=== PATIENT | female | born 1955 | race Caucasian/White ===

== ENCOUNTER 2020-01-14 11:21 | Emergency (ER) | payer MEDICARE, OTHER, SELFPAY ==
[2020-01-14] VITALS (8 sets, daily range): BP systolic 90–119; BP diastolic 45–67; PULSE 69–107; RESP 16–18; TEMP 36.6; O2SAT 89–99; BMI 30.3
--- NOTE | 2020-01-14 11:44 | ECG_ITS ---
Test Reason : SOB Blood Pressure : / mmHG Vent. Rate : 097 BPM Atrial Rate : 097 BPM P-R Int : 186 ms QRS Dur : 088 ms QT Int : 352 ms P-R-T Axes : 063 064 048 degrees QTc Int : 447 ms Sinus rhythm with occasional Premature atrial complexes RSR' or QR pattern in V1 suggests right ventricular conduction delay Abnormal ECG When compared with ECG of 30-MAY-2016 11:37, Premature atrial complexes are new Referred By: Jessica Sevilla Electronically Signed By:FRANCY ELIZONDO MD
--- NOTE | 2020-01-14 11:44 | ED.WEAKNESS ---
HPI - Weakness General Chief complaint: Weakness Stated complaint: NAUSEA X'S 1 WEEK Time Seen by Provider: 01/14/20 11:24 Source: patient and EMS Mode of arrival: EMS Limitations: no limitations History of Present Illness HPI Narrative: 64-year-old female with a possible history of tobacco use, GERD, asthma, COPD, diabetes, fibromyalgia, hypertension, hyper lipidemia, hypothyroidism, KAYLAN, polymyalgia rheumatica on chronic steroids, s/p cal here with complaints of nausea for weeks. She tells me she has been seen by her primary care doctor and was told she was going to be referred to GI but this did not happen. She is unhappy with her primary care doctor and seeking secondary pinning. She tells me that she has had very little p.o. intake for the last few days. This morning she was able to tolerate have a single specimen. She denies abdominal pain, vomiting, diarrhea. She she has been feeling very weak for the last few days. EMS gave her 4 mg of IV Zofran 100 mL of normal saline. MD Complaint: generalized weakness Onset (ago): day(s) Duration: constant Location: generalized Migration: none Severity: mild Relieving factors: none Exacerbating factors: none Associated symptoms: loss of appetite and other (nausea) Related Data Previous Rx's Medication Instructions Recorded pantoprazole 40 mg tablet,delayed 40 mg PO DAILY 90 Days #90 tab 12/11/19 release buspirone 15 mg tablet 15 mg PO BID 90 Days #180 tab 12/29/19 methenamine hippurate 1 gram tablet 1 g PO BID #60 tab 12/29/19 triamterene 37.5 1 cap PO DAILY 90 Days #90 cap 12/29/19 mg-hydrochlorothiazide 25 mg capsule albuterol sulfate 90 mcg/actuation 2 puff INHALATION QID #8.5 g 01/01/20 aerosol inhaler clonidine HCl 0.1 mg tablet 0.1 mg PO TID PRN #90 tab 01/01/20 gabapentin 300 mg capsule 300 mg PO TID #270 cap 01/01/20 oxycodone-acetaminophen 5 mg-325 1 tab PO Q8H PRN 28 Days #84 tab 01/09/20 mg tablet promethazine 25 mg tablet 25 mg PO TID PRN 10 Days #30 tab 01/09/20 Allergies Allergy/AdvReac Type Severity Reaction Status Date / Time codeine [Codeine] AdvReac Unknown VOMITING Verified 01/14/20 14:40 absorbable sutures Allergy Unknown Unknown Uncoded 01/14/20 14:40 Cat/Feline Product Allergy Unknown SWELLING,INFECTION Uncoded 01/14/20 14:40 Derivatives AT SITE WITH CAT GUT SUTURES codeine Allergy Unknown vomiting Uncoded 01/14/20 14:40 Codeine Phosphate Allergy Unknown Unknown Uncoded 01/14/20 14:40 dissolving stitches Allergy Unknown Unknown Uncoded 01/14/20 14:40 DISSOLVING SUTURES Allergy Unknown INFECTIONS Uncoded 01/14/20 14:40 Review of Systems Review of Systems: Yes all other systems are reviewed and are negative Constitutional: Constitutional: Reports no additional constitutional complaints, Denies body ache(s), Denies chills, Denies fever(s), Denies headache(s) and Reports weakness Eyes: Eyes: Reports no additional eye complaints and Denies change in vision ENT: Reports system reviewed and no additional complaints, except as documented, Denies dizziness, Denies headache(s), Denies nasal congestion, Denies nasal discharge and Denies neck pain Cardiovascular: Cardiovascular: Reports no additional cardiovascular complaints, Denies chest pain, Denies leg edema and Denies dyspnea Respiratory: Respiratory: Reports no additional respiratory complaints, Denies cough and Denies dyspnea Gastrointestinal: Gastrointestinal: Reports no additional gastrointestinal complaints, Denies abdominal pain, Denies diarrhea, Reports nausea and Denies vomiting Genitourinary: Genitourinary: Reports no additional female genitourinary complaints and Denies urinary incontinence Musculoskeletal: Musculoskeletal: Reports no additional musculoskeletal complaints, Denies back pain, Denies arthralgias, Denies joint swelling, Denies neck pain, Denies numbness and Denies tingling Integumentary/Breasts: Skin/Breast: Reports system reviewed and no additional complaints, except as docu and Denies rash Neurologic: Reports system reviewed and no additional complaints, except as documented, Denies Abnormal speech present, Denies dizziness, Denies headache(s), Denies numbness, Denies tingling and Reports weakness PMFSH Past Medical History Attestation statement: The following information was validated with the patient. Source: obtained from family and nursing notes reviewed Medical History Asthma COPD (chronic obstructive pulmonary disease) Diabetes Fibromyalgia GERD (gastroesophageal reflux disease) Hypertension Hypertriglyceridemia Hypothyroid Intractable nausea and vomiting Iron deficiency anemia Lipoprotein deficiencies Lumbar degenerative disc disease Polymyalgia rheumatica Surgical History History of thyroidectomy Hx of cholecystectomy Social History Social History Alcohol intake: unknown Smoking Status: Current every day smoker Use of substances other than those prescribed or required for medical reasons: Unknown Advance Directives: No Advance Directives Information Provided: Yes Physical Exam Vital Signs: Vital Signs: Last Vital Signs Temp 97.9 F 01/14/20 16:00 Pulse 73 01/14/20 16:00 Resp 16 01/14/20 16:00 BP 98/62 01/14/20 16:00 Pulse Ox 96 01/14/20 16:00 Body Mass Index 30.3 Const: General: cooperative, healthy appearing, comfortable and no acute distress Orientation/consciousness: patient oriented x3 Limitations: no limitations HENMT: Head: Yes normal to inspection Ears: hearing grossly normal bilaterally General nose exam: Normal external nose present Face and sinus: Yes normal facial exam Mouth: Normal oral and palatal mucosa present Throat: Yes posterior oropharynx normal Eyes: General: appearance normal, both eyes and all related structures Pupils: Equal, round and reactive pupils present Neck: Neck: Yes normal visual inspection Chest: Chest palpation & inspection: normal inspection of the chest Resp: Effort & Inspection: normal respiratory effort Auscultation: clear to auscultation bilaterally Cardio: Rate: regular rate Rhythm: regular rhythm Peripheral pulses: Peripheral pulses 2+ throughout GI: Inspection: Yes normal to inspection Palpation (GI): Soft to palpation, Tenderness to palpation present (GI) in the epigastrum, in the LUQ and in the RUQ; with no rebound tenderness and no guarding Auscultation: normal bowel sounds Back/Spine/Pelvis: Thoracic/Lumbar Spine: thoracic and lumbar spine normal to inspection Skin: General skin exam: no rashes or lesions noted Neuro: General: patient oriented x3, no focal motor deficits and normal sensation to monofilament Cranial nerves: Yes Equal, round and reactive pupils present Cognition (Neuro): normal cognition Speech: No Abnormal speech present Gait exam (Neuro): Normal gait present Motor exam (neuro): 5/5 motor strength present throughout Extrem: General: Yes normal to inspection Course Course Course Narrative: 64-year-old female here with nausea with decreased p.o. intake and now weakness. Exam is neurologically intact. The patient does have some mild upper abdominal pain with no rebound or guarding. Will need labs, UA, EKG, chest x-ray, orthostatics. Patient requesting COVID testing. This was sent. 1345-orthostatics positive. Patient has 2 L of normal saline ordered. Magnesium was low. This was replaced. Her calcium level is high. May be secondary to dehydration however have to rule out underlying malignancy. CT chest and abdomen ordered. 1550-CT chest/abdomen pending. Two blood pressures mildly low likely secondary to dehydration and not infection or severe sepsis. Patient had a solitary RA saturation 89% and has a h/o COPD, r/t chronic lung disease. It was associated with some wheezing and the patient received a duoneb with immediate improving in pulse oximeter. Not from sepsis or infectious process. 1640-UA unremarkable. Leukocytosis secondary to chronic steroid use and not from infection or severe sepsis. Patient would like to be discharged home. She ate a turkey sandwich and a evelia radha with no vomiting. Plan for repeat BMP and magnesium. If improved discharge home with PCP follow-up. I discussed with the patient I would like to admit her and admission was offered for continued IV hydration. Patient however has a small dog at home and would like to be discharged home after repeat labs. 1700-Sign out to Zackary MANZANARES pending repeat labs. MDM - Weakness MDM Narrative Medical decision making narrative: Electrolyte abnormality, anemia, underlying infectious process (UTI, pneumonia, COVID infection), ACS Medical Records Attestation: I reviewed the patient's medical records. Lab Data Attestation: I reviewed the patient's lab results. Result diagrams: 01/14/20 12:25 01/14/20 12:25 Labs: Lab Results 01/14/20 01/14/20 01/14/20 Range/Units 12:07 12:25 12:25 WBC 16.4 H (4.8-10.8) X10*3/uL RBC 4.51 (4.20-5.50) X10*6/uL Hgb 14.1 (12.0-16.0) g/dl Hct 42.6 (37-47) % MCV 94.5 (80-98) fL MCH 31.3 (27.0-33.0) pg MCHC 33.1 (31.0-35.0) g/dl RDW 12.1 (11.0-16.0) % Plt Count 310 (160-400) X10*3/uL MPV 9.5 (9.4-12.3) fL Immature Gran % (Auto) 0.4 (0.0-0.4) % Neut % (Auto) 73.8 H (45-73) % Lymph % (Auto) 16.0 L (20-40) % Robeson % (Auto) 7.6 (2-11) % Eos % (Auto) 1.7 (0-4) % Baso % (Auto) 0.5 (0-2) % Lymph # (Auto) 2.6 (1.2-4.9) X10*3/uL Robeson # (Auto) 1.3 H (0.1-1.2) X10*3/uL Eos # (Auto) 0.3 (0.0-0.4) X10*3/uL Baso # (Auto) 0.1 (0.0-0.2) X10*3/uL Abs Immat Gran (auto) 0.06 H (0.00-0.03) X10*3/uL Absolute Neuts (auto) 12.1 H (2.0-8.3) X10*3/uL Absolute Nucleated RBC 0.000 (0.0-0.012) X10*3/uL Nucleated RBC % (auto) 0.0 (0.0-0.2) /100WBC PT (10.8-13.0) SEC INR (0.9-1.1) Sodium 139 (135-145) mmol/L Potassium 3.6 (3.3-5.1) mmol/l Chloride 93 L (96-108) mmol/L Carbon Dioxide 37 H (22-29) mmol/L Anion Gap 13 (12-20) BUN 14 (9-16) mg/dL Creatinine 1.35 (0.5-1.4) mg/dL Estim Creat Clear Calc 45.6 Estimated GFR 39 Random Glucose 127 H (60-115) mg/dL Calcium 13.9 H* (8.4-10.2) mg/dL Magnesium 1.4 L* (1.6-2.6) mg/dL Total Bilirubin 0.3 (0.0-1.0) mg/dL Direct Bilirubin < 0.2 (0.0-0.5) mg/dL AST 13 (5-31) U/L ALT 10 (0-31) U/L Alkaline Phosphatase 59 (39-117) U/L Troponin I High Sens (<3.5-17.0) ng/L Total Protein 5.9 L (6.5-8.0) g/dL Albumin 4.0 (3.5-5.0) g/dL Urine Color Urine Appearance Urine pH (5.0-8.0) Ur Specific Hague (1.005-1.025) Urine Protein (NEG-TRACE) MG/DL Urine Glucose (UA) (NEG) MG/DL Urine Ketones (NEG) MG/DL Urine Blood (NEG) Urine Nitrite (NEG) Ur Leukocyte Esterase (NEG) Urine RBC (0) /HPF Urine WBC (0-4) /HPF Ur Squamous Epith Cells /LPF Amorphous Sediment /LPF Urine Bacteria /LPF Coronavirus (PCR) NEGATIVE (Negative) 01/14/20 01/14/20 01/14/20 Range/Units 12:25 12:25 16:05 WBC (4.8-10.8) X10*3/uL RBC (4.20-5.50) X10*6/uL Hgb (12.0-16.0) g/dl Hct (37-47) % MCV (80-98) fL MCH (27.0-33.0) pg MCHC (31.0-35.0) g/dl RDW (11.0-16.0) % Plt Count (160-400) X10*3/uL MPV (9.4-12.3) fL Immature Gran % (Auto) (0.0-0.4) % Neut % (Auto) (45-73) % Lymph % (Auto) (20-40) % Robeson % (Auto) (2-11) % Eos % (Auto) (0-4) % Baso % (Auto) (0-2) % Lymph # (Auto) (1.2-4.9) X10*3/uL Robeson # (Auto) (0.1-1.2) X10*3/uL Eos # (Auto) (0.0-0.4) X10*3/uL Baso # (Auto) (0.0-0.2) X10*3/uL Abs Immat Gran (auto) (0.00-0.03) X10*3/uL Absolute Neuts (auto) (2.0-8.3) X10*3/uL Absolute Nucleated RBC (0.0-0.012) X10*3/uL Nucleated RBC % (auto) (0.0-0.2) /100WBC PT 12.1 (10.8-13.0) SEC INR 1.0 (0.9-1.1) Sodium (135-145) mmol/L Potassium (3.3-5.1) mmol/l Chloride (96-108) mmol/L Carbon Dioxide (22-29) mmol/L Anion Gap (12-20) BUN (9-16) mg/dL Creatinine (0.5-1.4) mg/dL Estim Creat Clear Calc Estimated GFR Random Glucose (60-115) mg/dL Calcium (8.4-10.2) mg/dL Magnesium (1.6-2.6) mg/dL Total Bilirubin (0.0-1.0) mg/dL Direct Bilirubin (0.0-0.5) mg/dL AST (5-31) U/L ALT (0-31) U/L Alkaline Phosphatase (39-117) U/L Troponin I High Sens 11.1 (<3.5-17.0) ng/L Total Protein (6.5-8.0) g/dL Albumin (3.5-5.0) g/dL Urine Color YELLOW Urine Appearance HAZY Urine pH 6.5 (5.0-8.0) Ur Specific Hague 1.015 (1.005-1.025) Urine Protein TRACE (NEG-TRACE) MG/DL Urine Glucose (UA) NEG (NEG) MG/DL Urine Ketones NEG (NEG) MG/DL Urine Blood NEG (NEG) Urine Nitrite NEG (NEG) Ur Leukocyte Esterase 1+ H (NEG) Urine RBC 0 (0) /HPF Urine WBC 5-9 H (0-4) /HPF Ur Squamous Epith Cells NONE /LPF Amorphous Sediment 1+ /LPF Urine Bacteria 3+ /LPF Coronavirus (PCR) (Negative) Imaging Data Chest x-ray: Attestation: I personally reviewed and interpreted this imaging study as follows: Radiologist's impression: [id number] [place] [id number] XRay Report Signed Patient: Paula Ortiz MMR#: [id number] : 5Acct:[id number] Age/Sex: 64 / FADM Date: 01/14/20 Loc: HO.ED Attending Dr: Ordering Physician: AN STANTON NP Date of Service: 01/14/20 Procedure(s): XR chest 2V Accession Number(s): [id number] cc: AN STANTON NP~ EXAMINATION: XR CHEST CLINICAL INFORMATION: Weakness. COMPARISON: Chest done on 12/18/2016. TECHNIQUE: 2 views of the chest were obtained. FINDINGS: Mild diffuse osteopenia and mild multilevel degenerative spondylosis related changes are noted, unchanged. No significant abnormality is noted involving the heart, lungs, mediastinum, or soft tissues. XR/XR chest 2V IMPRESSION: No acute cardiopulmonary disease, unchanged since 12/18/2016. CT scan - head: Attestation: I personally reviewed and interpreted this imaging study as follows: Radiologist's impression: EXAMINATION: CT HEAD WITHOUT CONTRAST CLINICAL INFORMATION: Weakness. COMPARISON: None TECHNIQUE: Contiguous axial imaging was performed from the skull base to vertex without intravenous administration of contrast. This CT examination was performed using dose optimization techniques as appropriate, variously including the following: *Automated exposure control *Adjustment of mA and/or kV according to patient size (this includes techniques or standardized protocols for targeted exams where dose is matched to indication/reason for exam; i.e. extremities or head) *Use of iterative reconstruction technique DLP: 842.4 mGy-cm FINDINGS: There is no evidence of acute intracranial hemorrhage or territorial infarction. No abnormal mass effect or midline shift is seen. Barron to white matter differentiation is well preserved. No extra-axial fluid collections are identified. The ventricles are normal in size. There is no abnormal attenuation within the brain parenchyma. The osseous structures and soft tissues are normal. The mastoid air cells and visualized portions of the paranasal sinuses are well aerated. CT/CT head/brain wo con IMPRESSION: No acute intracranial pathology. Ct chest/abdomen: Attestation: I personally reviewed and interpreted this imaging study as follows: Radiologist's impression: EXAMINATION: CT CHEST, ABDOMEN AND PELVIS WITHOUT CONTRAST CLINICAL INFORMATION: Nausea with elevated calcium COMPARISON: No pertinent prior studies are available for comparison. TECHNIQUE: Multidetector volumetric imaging was performed from the thoracic inlet through the pubic symphysis without contrast. Sagittal and coronal reformatted images were obtained on the technologist workstation. DLP: 1090 mGy-cm. FINDINGS: CHEST: Lungs: Central airways are patent. There are some mild central bronchial wall thickening present. No bronchiectasis is seen. No significant emphysematous changes seen. There are some scattered sub-4 mm densities present. There are regions of discoid atelectasis or scarring seen within the right middle lobe and right lower lobe. A few scattered calcified granulomas are seen. Within the right middle lobe on image 326 of 590 there is a 4 mm noncalcified nodule present. There is a 5 mm noncalcified nodular density seen within the right lower lobe on image 356 of 590. There is a 5 mm density seen within the right lower lobe on image 312 of 590. There is a 6 mm noncalcified nodule seen within the left upper lobe on image 176 of 590. There is a 4 mm nodular density seen within the left lower lobe on image 301 of 590. There is a 4 mm noncalcified nodule seen within the left lower lobe on image 241 of 590. Mediastinum: Question status post thyroidectomy. There is a minimal amount of pericardial fluid. Heart normal size. Coronary artery calcification present. There is mild nonobstructive calcified plaque seen in the aortic arch. No thoracic aortic aneurysm. There is a 1.1 cm right hilar lymph node. No mediastinal lymphadenopathy. Pleura: There is no significant effusion. No pleural mass or thickening. No pneumothorax. Chest Wall/Axilla: No axillary lymphadenopathy. Status post left lumpectomy. ABDOMEN/PELVIS: Liver, Gallbladder, Biliary Tree: The liver is normal in size, shape, and attenuation. No focal hepatic lesion or biliary ductal dilatation is present. Status post cholecystectomy Pancreas: There is a pancreatic body calcification present which is likely vascular within the splenic artery. No definite suspicious mass or peripancreatic inflammatory change. Spleen: Unremarkable. Adrenal Glands: There is a 1.5 x 1.4 cm meter adrenal gland lipid rich adenoma Kidneys and Ureters: The kidneys are normal in size, shape, and attenuation. No hydronephrosis or hydroureter or obstructing calculi seen. No significant perinephric stranding. There is a 1.4 cm hyperdense cyst upper pole left kidney. There is a 6 mm hyperdense cyst upper pole of the right kidney. There is a 2 mm nonobstructing upper pole left renal calculus. Bladder: Unremarkable. Gastrointestinal Tract: There is a duodenal diverticulum off the second portion of the duodenum. No dilated loops of large or small bowel are evident. No pericolonic inflammatory change. No evidence of acute appendicitis. Abdominal Wall: No hernia is demonstrated. Lymph Nodes: No lymphadenopathy appreciated. Vascular: No abdominal aortic aneurysm. Mild calcified aortoiliac plaque. Pelvic Viscera: No abnormal pelvic mass or free fluid appreciated. Osseous Structures: No destructive bony lesions identified. There is calcification of the anterior longitudinal ligament throughout the thoracic and lumbar spine. There is multilevel degenerative disc disease present. There is scoliosis thoracic spine convex right. There is mild scoliosis of the lumbar spine convex left. There are some old healed right rib fractures. CT/CT abdomen pelvis wo con IMPRESSION: Status post previous thyroid surgery. Old granulomatous disease within the chest. Multiple lung densities as described. According to the UPDATED 2017 Fleischner Society recommendations, the advised follow-up imaging for multiple solid nodules, the largest measuring 6 mm or greater, is: LOW RISK PATIENT: CT at 3-6 months, then consider CT at 18-24 months. HIGH RISK PATIENT: CT at 3-6 months, then at 18-24 months. 1.1 cm right hilar lymph node. 1.5 cm lipid rich left adrenal gland adenoma. ECG Data Attestation: I personally reviewed and interpreted this ECG as follows: ECG interpretation date: 01/14/20 Interpretation: Normal sinus rhythm with sinus arrhythmia, normal PA, normal QRS, normal QT Discharge Plan Discharge Clinical Impression: Hypomagnesemia, Hypercalcemia, Acute dehydration Patient Disposition: Home, Self-Care Instructions: Dehydration (ED), Hypercalcemia (ED) Additional Instructions: Stay well hydrated. Drink plenty of fluids Follow-up with your PCP this week. You were offered admission but you declined this. Prescriptions: No Action pantoprazole 40 mg tablet,delayed release (DR/EC) 40 mg PO DAILY 90 Days Qty: 90 RF: 1 buspirone 15 mg tablet 15 mg PO BID 90 Days Qty: 180 RF: 12 triamterene-hydrochlorothiazid 37.5-25 mg capsule 1 cap PO DAILY 90 Days Qty: 90 RF: 12 methenamine hippurate 1 gram tablet 1 g PO BID Qty: 60 RF: 1 clonidine HCl 0.1 mg tablet 0.1 mg PO TID PRN (Reason: anxiety) Qty: 90 RF: 3 albuterol sulfate 90 mcg/actuation HFA aerosol inhaler 2 puff inhalation QID Qty: 8.5 RF: 3 gabapentin 300 mg capsule 300 mg PO TID Qty: 270 RF: 0 promethazine 25 mg tablet 25 mg PO TID PRN (Reason: nausea and vomiting) 10 Days Qty: 30 RF: 0 oxycodone-acetaminophen [Percocet] 5-325 mg tablet 1 tab PO Q8H PRN (Reason: pain) 28 Days Qty: 84 RF: 0 Referrals: Mikey Villavicencio MD [Primary Care Provider] - 2 days
[2020-01-14] MEDS: 0.9 % Sodium Chloride 1,000 ML 999 ML IV ×2 (11:57→13:16)
[2020-01-14 12:30] LABS: Basophils Absolute Auto 0.1 X10*3/uL (0.0-0.2); Basophils Percent Auto 0.5 % (0-2); Eosinophils Absolute Auto 0.3 X10*3/uL (0.0-0.4); Eosinophils Percent Auto 1.7 % (0-4); Hematocrit 42.6 % (37-47); Hemoglobin 14.1 g/dl (12.0-16.0); Imm Gran Abs Auto 0.06 X10*3/uL (0.00-0.03); Imm Gran Pct Auto 0.4 % (0.0-0.4); Lymphocytes Absolute Auto 2.6 X10*3/uL (1.2-4.9); Mean Corpuscular HGB Conc 33.1 g/dl (31.0-35.0); Mean Corpuscular Hemoglobin 31.3 pg (27.0-33.0); Mean Corpuscular Volume 94.5 fL (80-98); Mean Platelet Volume 9.5 fL (9.4-12.3); Monocytes Absolute Auto 1.3 X10*3/uL (0.1-1.2); Monocytes Percent Auto 7.6 % (2-11); Neutrophils Absolute Auto 12.1 X10*3/uL (2.0-8.3); Neutrophils Percent Auto 73.8 % (45-73); Platelet Count 310 X10*3/uL (160-400); Red Blood Count 4.51 X10*6/uL (4.20-5.50); Red Cell Distribution Width 12.1 % (11.0-16.0); White Blood Count 16.4 X10*3/uL (4.8-10.8)
[2020-01-14 12:31] LABS: MANUAL DIFF FLAG NO
[2020-01-14 12:39] LABS: Prothrombin Time 12.1 SEC (10.8-13.0)
[2020-01-14 13:02] LABS: Troponin-I High Sensitivity 11.1 ng/L (<3.5-17.0)
--- NOTE | 2020-01-14 13:17 | PC.NURSE ---
reports mild nausea. iv fluids infusing
[2020-01-14 13:28] LABS: Alanine Aminotransferase 10 U/L (0-31); Alkaline Phosphatase 59 U/L (39-117); Anion Gap 13 (12-20); Aspartate Amino Transferase 13 U/L (5-31); Bilirubin Direct < 0.2 mg/dL (0.0-0.5); Bilirubin Total 0.3 mg/dL (0.0-1.0); Blood Urea Nitrogen 14 mg/dL (9-16); Calcium 13.9 mg/dL (8.4-10.2); Carbon Dioxide 37 mmol/L (22-29); Chloride 93 mmol/L (96-108); Creatinine Clr Calc Pharmacy 45.6; Estimated Glomerular Filt Rate 39; Glucose Random 127 mg/dL (60-115); Magnesium 1.4 mg/dL (1.6-2.6); Potassium 3.6 mmol/l (3.3-5.1); Sodium 139 mmol/L (135-145); Total Protein 5.9 g/dL (6.5-8.0)
[2020-01-14 13:37] LABS: SARS COV2 PCR INHOUSE NEGATIVE (Negative)
--- NOTE | 2020-01-14 13:37 | CT_ITS ---
EXAMINATION: CT CHEST, ABDOMEN AND PELVIS WITHOUT CONTRAST CLINICAL INFORMATION: Nausea with elevated calcium COMPARISON: No pertinent prior studies are available for comparison. TECHNIQUE: Multidetector volumetric imaging was performed from the thoracic inlet through the pubic symphysis without contrast. Sagittal and coronal reformatted images were obtained on the technologist workstation. DLP: 1090 mGy-cm. FINDINGS: CHEST: Lungs: Central airways are patent. There are some mild central bronchial wall thickening present. No bronchiectasis is seen. No significant emphysematous changes seen. There are some scattered sub-4 mm densities present. There are regions of discoid atelectasis or scarring seen within the right middle lobe and right lower lobe. A few scattered calcified granulomas are seen. Within the right middle lobe on image 326 of 590 there is a 4 mm noncalcified nodule present. There is a 5 mm noncalcified nodular density seen within the right lower lobe on image 356 of 590. There is a 5 mm density seen within the right lower lobe on image 312 of 590. There is a 6 mm noncalcified nodule seen within the left upper lobe on image 176 of 590. There is a 4 mm nodular density seen within the left lower lobe on image 301 of 590. There is a 4 mm noncalcified nodule seen within the left lower lobe on image 241 of 590. Mediastinum: Question status post thyroidectomy. There is a minimal amount of pericardial fluid. Heart normal size. Coronary artery calcification present. There is mild nonobstructive calcified plaque seen in the aortic arch. No thoracic aortic aneurysm. There is a 1.1 cm right hilar lymph node. No mediastinal lymphadenopathy. Pleura: There is no significant effusion. No pleural mass or thickening. No pneumothorax. Chest Wall/Axilla: No axillary lymphadenopathy. Status post left lumpectomy. ABDOMEN/PELVIS: Liver, Gallbladder, Biliary Tree: The liver is normal in size, shape, and attenuation. No focal hepatic lesion or biliary ductal dilatation is present. Status post cholecystectomy Pancreas: There is a pancreatic body calcification present which is likely vascular within the splenic artery. No definite suspicious mass or peripancreatic inflammatory change. Spleen: Unremarkable. Adrenal Glands: There is a 1.5 x 1.4 cm meter adrenal gland lipid rich adenoma Kidneys and Ureters: The kidneys are normal in size, shape, and attenuation. No hydronephrosis or hydroureter or obstructing calculi seen. No significant perinephric stranding. There is a 1.4 cm hyperdense cyst upper pole left kidney. There is a 6 mm hyperdense cyst upper pole of the right kidney. There is a 2 mm nonobstructing upper pole left renal calculus. Bladder: Unremarkable. Gastrointestinal Tract: There is a duodenal diverticulum off the second portion of the duodenum. No dilated loops of large or small bowel are evident. No pericolonic inflammatory change. No evidence of acute appendicitis. Abdominal Wall: No hernia is demonstrated. Lymph Nodes: No lymphadenopathy appreciated. Vascular: No abdominal aortic aneurysm. Mild calcified aortoiliac plaque. Pelvic Viscera: No abnormal pelvic mass or free fluid appreciated. Osseous Structures: No destructive bony lesions identified. There is calcification of the anterior longitudinal ligament throughout the thoracic and lumbar spine. There is multilevel degenerative disc disease present. There is scoliosis thoracic spine convex right. There is mild scoliosis of the lumbar spine convex left. There are some old healed right rib fractures. CT/CT abdomen pelvis wo con IMPRESSION: Status post previous thyroid surgery. Old granulomatous disease within the chest. Multiple lung densities as described. According to the UPDATED 2017 Fleischner Society recommendations, the advised follow-up imaging for multiple solid nodules, the largest measuring 6 mm or greater, is: LOW RISK PATIENT: CT at 3-6 months, then consider CT at 18-24 months. HIGH RISK PATIENT: CT at 3-6 months, then at 18-24 months. 1.1 cm right hilar lymph node. 1.5 cm lipid rich left adrenal gland adenoma.
--- NOTE | 2020-01-14 13:54 | PC.NURSE ---
no active vomiting nausea continues- medicated as charted mag replacement infusing
[2020-01-14] MEDS: Albuterol/Iprat 2.5/0.5MG 3 ML AMPUL.NEB INHALE (14:02)
[2020-01-14] MEDS: Magnesium Sulfate/H2O 2 GM/50 ML PIGGYBACK IV (14:25)
--- NOTE | 2020-01-14 15:59 | PC.NURSE ---
pt up to bed side commode unable to void bladder scan shows 447ml in bladder plan for st cath
--- NOTE | 2020-01-14 16:25 | PC.NURSE ---
pt eating a sandwich and po fluids no vomiting. pt states she wants to go home vs admission provider in to discuss care plan awaiting ua results and then repeat chem
[2020-01-14 16:28] LABS: Glucose Urine UA NEG (NEG); Leukocyte Esterase Urine 1+ (NEG); Nitrite Urine NEG (NEG); PH 6.5 (5.0-8.0); Specific Gravity - Urine 1.015 (1.005-1.025); Urine Blood NEG (NEG); Urine Ketones NEG (NEG); Urine Protein TRACE MG/DL (NEG-TRACE)
[2020-01-14 16:33] LABS: Appearance Urine HAZY; Color Urine YELLOW
[2020-01-14 16:37] LABS: Amorphous Sediment Urine 1+ /LPF; Bacteria Urine 3+ /LPF; RBC Urine 0 /HPF (0)
[2020-01-14 17:18] LABS: Anion Gap 13 (12-20); Blood Urea Nitrogen 13 mg/dL (9-16); Calcium 12.8 mg/dL (8.4-10.2); Carbon Dioxide 33 mmol/L (22-29); Chloride 98 mmol/L (96-108); Creatinine Clr Calc Pharmacy 56.1; Estimated Glomerular Filt Rate 50; Glucose Random 103 mg/dL (60-115); Potassium 4.8 mmol/l (3.3-5.1); Sodium 139 mmol/L (135-145)
== END 2020-01-14 17:45 | disposition home or self-care (01) ==
PROVIDERS: Nurse Practitioner Family; Emergency Provider Emergency Medicine; PCP Internal Medicine
DX: E83.42 Hypomagnesemia (principal); E83.52 Hypercalcemia; E86.0 Dehydration; M54.6 Pain in thoracic spine; R51.9 Headache, unspecified; Z79.899 Other long term (current) drug therapy; Z20.828 Contact with and (suspected) exposure to other viral communicable diseases
CPT/HCPCS: 36415; 70450; 71046; 71250; 74176; 80048; 80076; 81001; 83735; 84484; 85025; 85610; 87086; 93005; 94640; 96361; 96365; 96366; 96375; 96376; 99284; J3475; U0003

== ENCOUNTER 2020-01-16 12:11 | Inpatient (IN) | payer MEDICARE, OTHER, SELFPAY ==
[2020-01-16 12:15] VITALS: BP 151/81; PULSE 83; RESP 20; TEMP 36.6; O2SAT 94; BMI 31.9
--- NOTE | 2020-01-16 12:37 | XR_ITS ---
EXAMINATION: XR CHEST CLINICAL INFORMATION: Weakness COMPARISON: 01/14/2020 TECHNIQUE: Frontal view of the chest was obtained. FINDINGS: Lungs are clear. No focal consolidation or mass. Normal pulmonary vascularity. No pleural effusion or pneumothorax. Normal heart size. No acute osseous abnormality. XR/XR chest 1V IMPRESSION: No acute pulmonary disease. No significant change from recent prior study.
--- NOTE | 2020-01-16 12:38 | ECG_ITS ---
Test Reason : NAUSEA/VOMITING Blood Pressure : / mmHG Vent. Rate : 083 BPM Atrial Rate : 083 BPM P-R Int : 188 ms QRS Dur : 090 ms QT Int : 374 ms P-R-T Axes : 064 065 043 degrees QTc Int : 439 ms Sinus rhythm with occasional Premature atrial complexes RSR' or QR pattern in V1 suggests right ventricular conduction delay Abnormal ECG When compared with ECG of 14-JAN-2020 11:49, No significant changes seen Referred By: Burton Ontiveros Electronically Signed By:FRANCY ELIZONDO MD
--- NOTE | 2020-01-16 12:39 | CT_ITS ---
EXAMINATION: CT HEAD WITHOUT CONTRAST CLINICAL INFORMATION: Headache, weakness COMPARISON: 01/14/2020 TECHNIQUE: Contiguous axial imaging was performed from the skull base to vertex without intravenous administration of contrast. This CT examination was performed using dose optimization techniques as appropriate, variously including the following: *Automated exposure control *Adjustment of mA and/or kV according to patient size (this includes techniques or standardized protocols for targeted exams where dose is matched to indication/reason for exam; i.e. extremities or head) *Use of iterative reconstruction technique DLP: 938 mGy-cm FINDINGS: There is no evidence of acute intracranial hemorrhage or territorial infarction. No abnormal mass effect or midline shift is seen. Barron to white matter differentiation is well preserved. No extra-axial fluid collections are identified. The ventricles are normal in size. There is no abnormal attenuation within the brain parenchyma. The osseous structures and soft tissues are normal. The mastoid air cells and visualized portions of the paranasal sinuses are well aerated. CT/CT head/brain wo con IMPRESSION: No acute intracranial pathology. No significant change from recent prior study
--- NOTE | 2020-01-16 12:42 | ED.GENADULT ---
HPI - General Adult General Chief complaint: Nausea/Vomiting/Diarrhea <Burton Ontiveros NP - Last Filed: 01/16/20 16:18> Stated complaint: nausea/weakness <Burton Ontiveros NP - Last Filed: 01/16/20 16:18> Time Seen by Provider: 01/16/20 12:35 <Burton Ontiveros NP - Last Filed: 01/16/20 16:18> Source: patient <Burton Ontiveros NP - Last Filed: 01/16/20 16:18> Mode of arrival: ambulatory <Burton Ontiveros NP - Last Filed: 01/16/20 16:18> Limitations: no limitations <Burton Ontiveros NP - Last Filed: 01/16/20 16:18> History of Present Illness HPI narrative: This is a pleasant 64 year old female with past medical history of asthma/COPD currently everyday smoker not on oxygen, gastroesophageal reflux disease, diabetes, fibromyalgia, hypertension, hyperlipidemia, hypothyroidism, iron deficiency anemia, polymyalgia rheumatica on steroids and surgical history of cholecystectomy re-presented to the emergency room of complaint of nausea and unable to keep any food down also reporting slight headache and generalized weakness. Patient reportedly was here for similar complaint 2 days ago on January 14, 2020-- she still what the workup was but in review of the chart it appears that patient had a battery of tests including CAT scan of her abdomen/chest as she had a lab abnormality malignancy was ruled out. She also had positive orthostatics, hypomag and elevated calcium subsequently she was recommended admission however she declined as she had errands and she had take care her dog. She was repleted and labs were checked showed some improvement and was subsequently discharged. Off note patient was tested for COVID-19 at that time was negative. States slight headache with continued nausea but no abdominal pain. Feels generalized weakness but no fever, cough, runny nose or congestion. States she smokes and her occasional shortness of breath is her baseline with the COPD. <Burton Ontiveros NP - Last Filed: 01/16/20 16:18> Related Data Home medications: Home Medications Medication Instructions Recorded Confirmed Cosentyx Pen (2 Pens) 2 syringe SUBCUT Q4W 01/16/20 01/16/20 Incruse Ellipta 1 puff INHALATION DAILY 01/16/20 01/16/20 aspirin 81 mg PO DAILY 01/16/20 01/16/20 atorvastatin 40 mg PO BEDTIME 01/16/20 01/16/20 fenofibrate 54 mg PO DAILY 01/16/20 01/16/20 gabapentin 600 mg PO BEDTIME 01/16/20 01/16/20 levothyroxine 175 mcg PO DAILY 01/16/20 01/16/20 lisinopril 5 mg PO DAILY 01/16/20 01/16/20 lorazepam 1 tab PO BID 01/16/20 01/16/20 metformin 500 mg PO BID 01/16/20 01/16/20 methenamine hippurate 1 g PO DAILY 01/16/20 01/16/20 naproxen 375 mg PO DAILY 01/16/20 01/16/20 prednisone 7.5 mg PO DAILY 01/16/20 01/16/20 Previous Rx's Medication Instructions Recorded pantoprazole 40 mg tablet,delayed 40 mg PO DAILY 90 Days #90 tab 12/11/19 release buspirone 15 mg tablet 15 mg PO BID 90 Days #180 tab 12/29/19 albuterol sulfate 90 mcg/actuation 2 puff INHALATION QID #8.5 g 01/01/20 aerosol inhaler clonidine HCl 0.1 mg tablet 0.1 mg PO TID PRN #90 tab 01/01/20 oxycodone-acetaminophen 5 mg-325 1 tab PO Q8H PRN 28 Days #84 tab 01/09/20 mg tablet ondansetron HCl [Zofran] 4 mg PO Q8H PRN #20 tab 01/17/20 <Burton Ontiveros NP - Last Filed: 01/16/20 16:18> Allergies/adverse reactions: Allergies Allergy/AdvReac Type Severity Reaction Status Date / Time codeine [Codeine] AdvReac Unknown VOMITING Verified 01/14/20 14:40 absorbable sutures Allergy Unknown Unknown Uncoded 01/14/20 14:40 Cat/Feline Product Allergy Unknown SWELLING,INFECTION Uncoded 01/14/20 14:40 Derivatives AT SITE WITH CAT GUT SUTURES codeine Allergy Unknown vomiting Uncoded 01/14/20 14:40 Codeine Phosphate Allergy Unknown Unknown Uncoded 01/14/20 14:40 dissolving stitches Allergy Unknown Unknown Uncoded 01/14/20 14:40 DISSOLVING SUTURES Allergy Unknown INFECTIONS Uncoded 01/14/20 14:40 <Burton Ontiveros NP - Last Filed: 01/16/20 16:18> [facility] Past Medical History Medical History: Medical History (Updated 01/17/20 @ 11:27 by Jose Guadalupe Santiago MD) Asthma COPD (chronic obstructive pulmonary disease) Diabetes Fibromyalgia GERD (gastroesophageal reflux disease) Graves' disease Hypertension Hypertriglyceridemia Hypothyroid Intractable nausea and vomiting Iron deficiency anemia Lipoprotein deficiencies Lumbar degenerative disc disease Polymyalgia rheumatica <Burton Ontiveros NP - Last Filed: 01/16/20 16:18> Surgical History: Surgical History History of thyroidectomy Hx of cholecystectomy <Burton Ontiveros NP - Last Filed: 01/16/20 16:18> Social History Social History: Social History Household Members: None Housing: House Do you presently have visiting nurse or other home services: No Alcohol intake: never Smoking Status: Current every day smoker Tobacco Type: Cigarette Packs Per Day: 2.5 Cigarettes Per Day: 50.0 Years Smoked: 40 Smoked in Last 30 Days: Yes Patient Interested in Nicotine Replacement: Yes Patient Given Instructions on How to Stop Smoking: No Use of substances other than those prescribed or required for medical reasons: No Currently Displaying Signs/Symptoms of Drug Intoxication Withdrawal: No Have you been hit, kicked, punched, or otherwise hurt by someone within the past year? If so, by whom?: No Do you feel safe in your current relationship?: No Is there a partner from a previous relationship who is making you feel unsafe now?: No Are you made to feel afraid or neglected: No Advance Directives: No Advance Directives Information Provided: Yes Do you have thoughts of harming others: None Do you have a plan to hurt others: No Plan Recently lost weight without trying: Yes service: No Current occupational status: retired <Burton Ontiveros NP - Last Filed: 01/16/20 16:18> Physical Exam Vital Signs: Vital Signs: Last Vital Signs Temp 97.7 F 01/17/20 11:55 Pulse 93 01/17/20 11:55 Resp 16 01/17/20 11:55 BP 113/64 01/17/20 11:59 Pulse Ox 95 11/11/20 11:55 Body Mass Index 31.9 Reviewed <[facility] ELVI Ontiveros - Last Filed: 01/16/20 16:18> Vital Signs: Last Vital Signs Temp 97.7 F 01/17/20 11:55 Pulse 93 01/17/20 11:55 Resp 16 01/17/20 11:55 BP 113/64 01/17/20 11:59 Pulse Ox 95 01/17/20 11:55 Body Mass Index 31.9 <Ken Rodriguez MD - Last Filed: 01/19/20 02:11> Const: General: cooperative and healthy appearing; No acute distress or intoxicated appearing <[facility] ELVI Ontiveros - Last Filed: 01/16/20 16:18> Nutritional Appearance: average body habitus <[facility] ELVI Ontiveros - Last Filed: 01/16/20 16:18> Orientation/consciousness: patient oriented x3 <[facility] ELVI Ontiveros - Last Filed: 01/16/20 16:18> HENMT: Head: Yes normal to inspection <[facility] ELVI Ontiveros - Last Filed: 01/16/20 16:18> Ears: hearing grossly normal bilaterally <[facility] ELVI Ontiveros - Last Filed: 01/16/20 16:18> Eyes: General: appearance normal, both eyes and all related structures <[facility] ELVI Ontiveros - Last Filed: 01/16/20 16:18> Visual De La Cruz: normal visual de la cruz by confrontation <[facility] ELVI Ontiveros - Last Filed: 01/16/20 16:18> Neck: Neck: Yes normal visual inspection and No tender <[facility] ELVI Ontiveros - Last Filed: 01/16/20 16:18> Thyroid: Thyroid normal <[facility] ELVI Ontiveros - Last Filed: 01/16/20 16:18> Chest: Chest palpation & inspection: normal inspection of the chest <[facility] ELVI Ontiveros - Last Filed: 01/16/20 16:18> Resp: Effort & Inspection: normal respiratory effort <[facility] ELVI Ontiveros - Last Filed: 01/16/20 16:18> Cardio: Jugular venous distension: no JVD <[facility] ELVI Ontiveros - Last Filed: 01/16/20 16:18> GI: Inspection: Yes normal to inspection <[facility] ELVI Ontiveros - Last Filed: 01/16/20 16:18> Percussion: Yes normal to percussion <[facility] ELVI Ontiveros - Last Filed: 01/16/20 16:18> Auscultation: normal bowel sounds <[facility] ELVI Ontiveros - Last Filed: 01/16/20 16:18> : General: Yes no CVA tenderness <[facility] ELVI Ontiveros - Last Filed: 01/16/20 16:18> Back/Spine/Pelvis: Back: no CVA tenderness <[facility] ELVI Ontiveros - Last Filed: 01/16/20 16:18> Skin: General skin exam: no rashes or lesions noted <[facility]ton ELVI Ontiveros - Last Filed: 01/16/20 16:18> Neuro: General: patient oriented x3 <Burtonnixon Ontiveros NP - Last Filed: 01/16/20 16:18> Extrem: General: Yes normal to inspection <[facility] ELVI Ontiveros - Last Filed: 01/16/20 16:18> Course Course Course Narrative: I have reviewed the chart <Ken Rodriguez MD - Last Filed: 01/19/20 02:11> Reevaluation(s) Reevaluation #1: Unclear etiology of the elevated calcium labs reveal hypomagnesemia/slight hypo K. Repleted given IV fluids plan for admission. Case discussed with hospitalist Alexus who evaluated patient bedside for admission. <Burton Ontiveros NP - Last Filed: 01/16/20 16:18> Medical Decision Making Lab Data Result diagrams: : 01/17/20 05:41 01/17/20 05:41 <Burtonnixon Ontiveros NP - Last Filed: 01/16/20 16:18> Labs: Lab Results 01/16/20 01/16/20 01/16/20 Range/Units 12:59 13:00 13:00 WBC 8.9 (4.8-10.8) X10*3/uL RBC 4.26 (4.20-5.50) X10*6/uL Hgb 13.3 (12.0-16.0) g/dl Hct 40.3 (37-47) % MCV 94.6 (80-98) fL MCH 31.2 (27.0-33.0) pg MCHC 33.0 (31.0-35.0) g/dl RDW 12.3 (11.0-16.0) % Plt Count 247 (160-400) X10*3/uL MPV 9.5 (9.4-12.3) fL Immature Gran % (Auto) 0.2 (0.0-0.4) % Neut % (Auto) 64.3 (45-73) % Lymph % (Auto) 26.2 (20-40) % [place] % (Auto) 5.9 (2-11) % Eos % (Auto) 2.7 (0-4) % Baso % (Auto) 0.7 (0-2) % Lymph # (Auto) 2.3 (1.2-4.9) X10*3/uL [place] # (Auto) 0.5 (0.1-1.2) X10*3/uL Eos # (Auto) 0.2 (0.0-0.4) X10*3/uL Baso # (Auto) 0.1 (0.0-0.2) X10*3/uL Abs Immat Gran (auto) 0.02 (0.00-0.03) X10*3/uL Absolute Neuts (auto) 5.7 (2.0-8.3) X10*3/uL Absolute Nucleated RBC 0.000 (0.0-0.012) X10*3/uL Nucleated RBC % (auto) 0.0 (0.0-0.2) /100WBC PT (10.8-13.0) SEC INR (0.9-1.1) APTT (24.1-38.0) SEC Sodium 140 (135-145) mmol/L Potassium 3.0 L D (3.3-5.1) mmol/l Chloride 96 (96-108) mmol/L Carbon Dioxide 36 H (22-29) mmol/L Anion Gap 11 L (12-20) BUN 12 (9-16) mg/dL Creatinine 1.29 (0.5-1.4) mg/dL Estim Creat Clear Calc 49.0 Estimated GFR 41 Random Glucose 85 (60-115) mg/dL Calcium 12.8 H* (8.4-10.2) mg/dL Magnesium 1.4 L* (1.6-2.6) mg/dL Total Bilirubin 0.2 (0.0-1.0) mg/dL AST 14 (5-31) U/L ALT 9 (0-31) U/L Alkaline Phosphatase 52 (39-117) U/L Troponin I High Sens (<3.5-17.0) ng/L Total Protein 6.0 L (6.5-8.0) g/dL Albumin 4.0 (3.5-5.0) g/dL Lipase 23 (8-78) U/L TSH 0.40 (0.32-4.0) uIU/mL PTH Intact (14-64) pg/mL Calcium (PTH Intact) (8.6-10.4) mg/dL Coronavirus (PCR) NEGATIVE (Negative) COVID-19 PCR Cancelled Influenza Type A (PCR) NEGATIVE (Negative) Influenza Type B (PCR) NEGATIVE (Negative) RSV RNA Qual (PCR) NEGATIVE (Negative) 01/16/20 01/16/20 01/16/20 Range/Units 13:00 13:00 14:14 WBC (4.8-10.8) X10*3/uL RBC (4.20-5.50) X10*6/uL Hgb (12.0-16.0) g/dl Hct (37-47) % MCV (80-98) fL MCH (27.0-33.0) pg MCHC (31.0-35.0) g/dl RDW (11.0-16.0) % Plt Count (160-400) X10*3/uL MPV (9.4-12.3) fL Immature Gran % (Auto) (0.0-0.4) % Neut % (Auto) (45-73) % Lymph % (Auto) (20-40) % [place] % (Auto) (2-11) % Eos % (Auto) (0-4) % Baso % (Auto) (0-2) % Lymph # (Auto) (1.2-4.9) X10*3/uL [place] # (Auto) (0.1-1.2) X10*3/uL Eos # (Auto) (0.0-0.4) X10*3/uL Baso # (Auto) (0.0-0.2) X10*3/uL Abs Immat Gran (auto) (0.00-0.03) X10*3/uL Absolute Neuts (auto) (2.0-8.3) X10*3/uL Absolute Nucleated RBC (0.0-0.012) X10*3/uL Nucleated RBC % (auto) (0.0-0.2) /100WBC PT 11.9 (10.8-13.0) SEC INR 1.0 (0.9-1.1) APTT 29.0 (24.1-38.0) SEC Sodium (135-145) mmol/L Potassium (3.3-5.1) mmol/l Chloride (96-108) mmol/L Carbon Dioxide (22-29) mmol/L Anion Gap (12-20) BUN (9-16) mg/dL Creatinine (0.5-1.4) mg/dL Estim Creat Clear Calc Estimated GFR Random Glucose (60-115) mg/dL Calcium (8.4-10.2) mg/dL Magnesium (1.6-2.6) mg/dL Total Bilirubin (0.0-1.0) mg/dL AST (5-31) U/L ALT (0-31) U/L Alkaline Phosphatase (39-117) U/L Troponin I High Sens 5.7 (<3.5-17.0) ng/L Total Protein (6.5-8.0) g/dL Albumin (3.5-5.0) g/dL Lipase (8-78) U/L TSH (0.32-4.0) uIU/mL PTH Intact 12 L (14-64) pg/mL Calcium (PTH Intact) 11.9 H (8.6-10.4) mg/dL Coronavirus (PCR) (Negative) COVID-19 PCR Influenza Type A (PCR) (Negative) Influenza Type B (PCR) (Negative) RSV RNA Qual (PCR) (Negative) <Burton Ontiveros NP - Last Filed: 01/16/20 16:18> Lab Results 01/16/20 01/16/20 01/16/20 Range/Units 12:59 13:00 13:00 WBC 8.9 (4.8-10.8) X10*3/uL RBC 4.26 (4.20-5.50) X10*6/uL Hgb 13.3 (12.0-16.0) g/dl Hct 40.3 (37-47) % MCV 94.6 (80-98) fL MCH 31.2 (27.0-33.0) pg MCHC 33.0 (31.0-35.0) g/dl RDW 12.3 (11.0-16.0) % Plt Count 247 (160-400) X10*3/uL MPV 9.5 (9.4-12.3) fL Immature Gran % (Auto) 0.2 (0.0-0.4) % Neut % (Auto) 64.3 (45-73) % Lymph % (Auto) 26.2 (20-40) % [place] % (Auto) 5.9 (2-11) % Eos % (Auto) 2.7 (0-4) % Baso % (Auto) 0.7 (0-2) % Lymph # (Auto) 2.3 (1.2-4.9) X10*3/uL [place] # (Auto) 0.5 (0.1-1.2) X10*3/uL Eos # (Auto) 0.2 (0.0-0.4) X10*3/uL Baso # (Auto) 0.1 (0.0-0.2) X10*3/uL Abs Immat Gran (auto) 0.02 (0.00-0.03) X10*3/uL Absolute Neuts (auto) 5.7 (2.0-8.3) X10*3/uL Absolute Nucleated RBC 0.000 (0.0-0.012) X10*3/uL Nucleated RBC % (auto) 0.0 (0.0-0.2) /100WBC PT (10.8-13.0) SEC INR (0.9-1.1) APTT (24.1-38.0) SEC Sodium 140 (135-145) mmol/L Potassium 3.0 L D (3.3-5.1) mmol/l Chloride 96 (96-108) mmol/L Carbon Dioxide 36 H (22-29) mmol/L Anion Gap 11 L (12-20) BUN 12 (9-16) mg/dL Creatinine 1.29 (0.5-1.4) mg/dL Estim Creat Clear Calc 49.0 Estimated GFR 41 Random Glucose 85 (60-115) mg/dL Calcium 12.8 H* (8.4-10.2) mg/dL Magnesium 1.4 L* (1.6-2.6) mg/dL Total Bilirubin 0.2 (0.0-1.0) mg/dL AST 14 (5-31) U/L ALT 9 (0-31) U/L Alkaline Phosphatase 52 (39-117) U/L Troponin I High Sens (<3.5-17.0) ng/L Total Protein 6.0 L (6.5-8.0) g/dL Albumin 4.0 (3.5-5.0) g/dL Lipase 23 (8-78) U/L TSH 0.40 (0.32-4.0) uIU/mL PTH Intact (14-64) pg/mL Calcium (PTH Intact) (8.6-10.4) mg/dL Coronavirus (PCR) NEGATIVE (Negative) COVID-19 PCR Cancelled Influenza Type A (PCR) NEGATIVE (Negative) Influenza Type B (PCR) NEGATIVE (Negative) RSV RNA Qual (PCR) NEGATIVE (Negative) 01/16/20 01/16/20 01/16/20 Range/Units 13:00 13:00 14:14 WBC (4.8-10.8) X10*3/uL RBC (4.20-5.50) X10*6/uL Hgb (12.0-16.0) g/dl Hct (37-47) % MCV (80-98) fL MCH (27.0-33.0) pg MCHC (31.0-35.0) g/dl RDW (11.0-16.0) % Plt Count (160-400) X10*3/uL MPV (9.4-12.3) fL Immature Gran % (Auto) (0.0-0.4) % Neut % (Auto) (45-73) % Lymph % (Auto) (20-40) % [place] % (Auto) (2-11) % Eos % (Auto) (0-4) % Baso % (Auto) (0-2) % Lymph # (Auto) (1.2-4.9) X10*3/uL [place] # (Auto) (0.1-1.2) X10*3/uL Eos # (Auto) (0.0-0.4) X10*3/uL Baso # (Auto) (0.0-0.2) X10*3/uL Abs Immat Gran (auto) (0.00-0.03) X10*3/uL Absolute Neuts (auto) (2.0-8.3) X10*3/uL Absolute Nucleated RBC (0.0-0.012) X10*3/uL Nucleated RBC % (auto) (0.0-0.2) /100WBC PT 11.9 (10.8-13.0) SEC INR 1.0 (0.9-1.1) APTT 29.0 (24.1-38.0) SEC Sodium (135-145) mmol/L Potassium (3.3-5.1) mmol/l Chloride (96-108) mmol/L Carbon Dioxide (22-29) mmol/L Anion Gap (12-20) BUN (9-16) mg/dL Creatinine (0.5-1.4) mg/dL Estim Creat Clear Calc Estimated GFR Random Glucose (60-115) mg/dL Calcium (8.4-10.2) mg/dL Magnesium (1.6-2.6) mg/dL Total Bilirubin (0.0-1.0) mg/dL AST (5-31) U/L ALT (0-31) U/L Alkaline Phosphatase (39-117) U/L Troponin I High Sens 5.7 (<3.5-17.0) ng/L Total Protein (6.5-8.0) g/dL Albumin (3.5-5.0) g/dL Lipase (8-78) U/L TSH (0.32-4.0) uIU/mL PTH Intact 12 L (14-64) pg/mL Calcium (PTH Intact) 11.9 H (8.6-10.4) mg/dL Coronavirus (PCR) (Negative) COVID-19 PCR Influenza Type A (PCR) (Negative) Influenza Type B (PCR) (Negative) RSV RNA Qual (PCR) (Negative) <Ken Rodriguez MD - Last Filed: 01/19/20 02:11> Discharge Plan Discharge Clinical Impression: Intractable nausea and vomiting, Hypomagnesemia, Acute hypokalemia, Weakness <Burton Ontiveros NP - Last Filed: 01/16/20 16:18> Patient Disposition: Admitted As Inpatient <Burton Ontiveros NP - Last Filed: 01/16/20 16:18> Interventions: Admission Worksheet (ED) Last Done: 01/16/20 16:07 <Burton Ontiveros NP - Last Filed: 01/16/20 16:18> Discharge Date/Time: 01/16/20 16:21 <Burton Ontiveros NP - Last Filed: 01/16/20 16:18>
[2020-01-16 13:06] LABS: MANUAL DIFF FLAG NO
[2020-01-16 13:08] LABS: Basophils Absolute Auto 0.1 X10*3/uL (0.0-0.2); Basophils Percent Auto 0.7 % (0-2); Eosinophils Absolute Auto 0.2 X10*3/uL (0.0-0.4); Eosinophils Percent Auto 2.7 % (0-4); Hematocrit 40.3 % (37-47); Hemoglobin 13.3 g/dl (12.0-16.0); Imm Gran Abs Auto 0.02 X10*3/uL (0.00-0.03); Imm Gran Pct Auto 0.2 % (0.0-0.4); Lymphocytes Absolute Auto 2.3 X10*3/uL (1.2-4.9); Lymphocytes Percent Auto 26.2 % (20-40); Mean Corpuscular Hemoglobin 31.2 pg (27.0-33.0); Mean Corpuscular Volume 94.6 fL (80-98); Mean Platelet Volume 9.5 fL (9.4-12.3); Monocytes Absolute Auto 0.5 X10*3/uL (0.1-1.2); Monocytes Percent Auto 5.9 % (2-11); Neutrophils Absolute Auto 5.7 X10*3/uL (2.0-8.3); Neutrophils Percent Auto 64.3 % (45-73); Platelet Count 247 X10*3/uL (160-400); Red Blood Count 4.26 X10*6/uL (4.20-5.50); Red Cell Distribution Width 12.3 % (11.0-16.0); White Blood Count 8.9 X10*3/uL (4.8-10.8)
[2020-01-16] MEDS: 0.9 % Sodium Chloride 1,000 ML 1000 ML IV (13:08)
[2020-01-16] MEDS: ondansetron HCL 4 MG/2 ML VIAL IVPUSH ×2 (13:08→21:37)
[2020-01-16 13:17] LABS: Prothrombin Time 11.9 SEC (10.8-13.0)
[2020-01-16 13:46] LABS: Alanine Aminotransferase 9 U/L (0-31); Alkaline Phosphatase 52 U/L (39-117); Anion Gap 11 (12-20); Aspartate Amino Transferase 14 U/L (5-31); Bilirubin Total 0.2 mg/dL (0.0-1.0); Blood Urea Nitrogen 12 mg/dL (9-16); Calcium 12.8 mg/dL (8.4-10.2); Carbon Dioxide 36 mmol/L (22-29); Chloride 96 mmol/L (96-108); Estimated Glomerular Filt Rate 41; Glucose Random 85 mg/dL (60-115); Lipase 23 U/L (8-78); Magnesium 1.4 mg/dL (1.6-2.6); Sodium 140 mmol/L (135-145)
[2020-01-16 13:48] LABS: Troponin-I High Sensitivity 5.7 ng/L (<3.5-17.0)
[2020-01-16 14:22] LABS: Influenza A PCR NEGATIVE (Negative); Influenza B PCR NEGATIVE (Negative); Resp Syncy Virus RNA Qual PCR NEGATIVE (Negative); SARS COV2 PCR INHOUSE NEGATIVE (Negative)
--- NOTE | 2020-01-16 15:04 | PM.EVENT ---
Event Note Date of Service: 01/16/20 Event Note: Patient seen and examined independently and was present during horne portion of E/M service. Agree with midlevel's history, physical, assessment, and plan. 64-year-old female presented with nausea vomiting. Found to have hypercalcemia nausea vomiting, likely related to hypercalcemia patient has longstanding history of hypercalcemia, previously had elevated PTH, patient reports no other workup or treatment. she does take about 6 tums a day. . stop Tums IV fluids monitor labs follow-up PTH nephrology consult
[2020-01-16] MEDS: Magnesium Sulfate/H2O 2 GM/50 ML PIGGYBACK IV (15:31)
[2020-01-16] MEDS: Potassium Chloride ER 20 MEQ TAB.ER.PRT PO (15:31)
[2020-01-16 16:03] VITALS: PULSE 71; RESP 18; O2SAT 100
[2020-01-16 16:24] VITALS: BP 129/68; PULSE 70; RESP 20; TEMP 36.4; O2SAT 95
[2020-01-16] MEDS: Nicotine 21 MG PATCH.TD24 TRANSDERMA (17:55)
[2020-01-16] MEDS: 0.9 % Sodium Chloride 1,000 ML 150 ML IVCONT (17:55)
[2020-01-16] MEDS: 0.9 % Sodium Chloride Flush 3 ML SYRINGE IVFLUSH ×2 (17:55→21:07)
[2020-01-16] MEDS: oxyCODONE HCl Immed Release 5 MG TABLET PO (17:56)
[2020-01-16] MEDS: metFORMIN HCl 500 MG TABLET PO (18:28)
[2020-01-16 18:37] LABS: Glucose, Whole Blood 126 mg/dL (60-115)
[2020-01-16 18:58] VITALS: BP 126/71; PULSE 81; RESP 18; TEMP 36.2; O2SAT 99
[2020-01-16] MEDS: Enoxaparin Sodium 40 MG/0.4 ML SYRINGE SUBCUT (19:30)
[2020-01-16 20:25] LABS: Glucose Urine UA NEG (NEG); Leukocyte Esterase Urine NEG (NEG); Nitrite Urine NEG (NEG); PH 8.5 (5.0-8.0); Urine Blood NEG (NEG); Urine Ketones NEG (NEG); Urine Protein NEG (NEG-TRACE)
[2020-01-16 20:26] LABS: Glucose, Whole Blood 110 mg/dL (60-115)
[2020-01-16 20:29] LABS: Appearance Urine CLEAR; Color Urine YELLOW
[2020-01-16 20:39] LABS: Bacteria Urine TRACE /LPF; RBC Urine 0 /HPF (0); Squamous Epithelial Cell Urine TRACE /LPF; WBC Urine 0-2 /HPF (0-4)
[2020-01-16] MEDS: Gabapentin 300 MG CAPSULE 600 MG PO (21:03)
[2020-01-16] MEDS: busPIRone HCl 5 MG TABLET 15 MG PO (21:03)
[2020-01-16] MEDS: Atorvastatin Calcium 40 MG TABLET PO (21:04)
[2020-01-16] MEDS: LORazepam 1 MG TABLET PO (21:04)
[2020-01-16] MEDS: Acetaminophen 325 MG TABLET 650 MG PO (21:06)
[2020-01-16 23:46] VITALS: BP 126/82; PULSE 94; RESP 18; TEMP 36.7; O2SAT 97
[2020-01-17] MEDS: 0.9 % Sodium Chloride 1,000 ML 150 ML IVCONT ×2 (00:15→06:58)
[2020-01-17] MEDS: oxyCODONE HCl Immed Release 5 MG TABLET PO ×2 (02:09→09:31)
[2020-01-17 03:51] VITALS: BP 107/63; PULSE 66; RESP 18; TEMP 36.9; O2SAT 96
[2020-01-17] MEDS: traZODone HCL 25 MG HALFTAB PO (04:10)
[2020-01-17] MEDS: Omeprazole 20 MG CAPSULE.DR PO (05:44)
[2020-01-17] MEDS: Levothyroxine Sodium 175 MCG TABLET PO (05:44)
[2020-01-17 06:31] LABS: MANUAL DIFF FLAG NO
[2020-01-17 06:47] LABS: Basophils Absolute Auto 0.1 X10*3/uL (0.0-0.2); Basophils Percent Auto 0.7 % (0-2); Eosinophils Absolute Auto 0.3 X10*3/uL (0.0-0.4); Eosinophils Percent Auto 3.7 % (0-4); Hematocrit 35.9 % (37-47); Hemoglobin 11.4 g/dl (12.0-16.0); Imm Gran Abs Auto 0.03 X10*3/uL (0.00-0.03); Imm Gran Pct Auto 0.4 % (0.0-0.4); Lymphocytes Absolute Auto 2.5 X10*3/uL (1.2-4.9); Lymphocytes Percent Auto 35.5 % (20-40); Mean Corpuscular HGB Conc 31.8 g/dl (31.0-35.0); Mean Corpuscular Hemoglobin 30.6 pg (27.0-33.0); Mean Corpuscular Volume 96.5 fL (80-98); Mean Platelet Volume 10.4 fL (9.4-12.3); Monocytes Absolute Auto 0.6 X10*3/uL (0.1-1.2); Monocytes Percent Auto 8.2 % (2-11); Neutrophils Absolute Auto 3.6 X10*3/uL (2.0-8.3); Neutrophils Percent Auto 51.5 % (45-73); Platelet Count 209 X10*3/uL (160-400); Red Blood Count 3.72 X10*6/uL (4.20-5.50); Red Cell Distribution Width 12.3 % (11.0-16.0)
[2020-01-17 07:15] VITALS: BP 114/62; PULSE 61; RESP 18; TEMP 36.3; O2SAT 95
[2020-01-17 07:16] LABS: Anion Gap 10 (12-20); Blood Urea Nitrogen 15 mg/dL (9-16); Carbon Dioxide 30 mmol/L (22-29); Chloride 102 mmol/L (96-108); Creatinine Clr Calc Pharmacy 56.5; Estimated Glomerular Filt Rate 49; Glucose Random 77 mg/dL (60-115); Magnesium 1.6 mg/dL (1.6-2.6); Potassium 3.3 mmol/l (3.3-5.1); Sodium 139 mmol/L (135-145)
[2020-01-17 07:40] LABS: Calcium 10.3 mg/dL (8.4-10.2)
[2020-01-17 07:42] LABS: Glucose, Whole Blood 75 mg/dL (60-115)
[2020-01-17] MEDS: busPIRone HCl 5 MG TABLET 15 MG PO (08:18)
[2020-01-17] MEDS: Aspirin 81 MG TAB.CHEW PO (08:19)
[2020-01-17] MEDS: Fenofibrate 54 MG TABLET PO (08:19)
[2020-01-17] MEDS: lisinopriL 5 MG TABLET PO (08:19)
[2020-01-17] MEDS: predniSONE 2.5 MG TABLET 7.5 MG PO (08:19)
[2020-01-17] MEDS: LORazepam 1 MG TABLET PO (08:19)
[2020-01-17] MEDS: Nicotine 21 MG PATCH.TD24 TRANSDERMA (08:20)
[2020-01-17] MEDS: NaPROXEN 500 MG TABLET PO (08:20)
[2020-01-17] MEDS: 0.9 % Sodium Chloride Flush 3 ML SYRINGE IVFLUSH (08:21)
[2020-01-17] MEDS: metFORMIN HCl 500 MG TABLET PO (09:31)
--- NOTE | 2020-01-17 09:42 | MHC.CM.PN ---
CM met with patient who reports she amb with a cane and lives alone in an apartment. Patient does have support from her sister/HCP Kayley [phone], who is first contact is , HCP is on file. Discussed discharge plan, home no services. Patient will be using shuttle for transport home. CM will continue to follow for discharge needs.
--- NOTE | 2020-01-17 11:29 | P.DS_ITS ---
DS: Providers Provider Date of admission: 01/16/20 15:08 Primary care physician: Mikey Villavicencio MD Consults: 01/16/20 16:41 Consult to Nephrology Routine Consulting Provider: Wily Chau Reason for consultation: hypercalcemia Has provider been notified: No DS: Diagnosis Discharge Diagnosis (1) Hypercalcemia: Status: Acute (2) Intractable nausea and vomiting: Status: Acute DS: Medications Discharge Medications Home Medications: Home Medications Medication Instructions Recorded Confirmed Cosentyx Pen (2 Pens) 2 syringe SUBCUT Q4W 01/16/20 01/16/20 Incruse Ellipta 1 puff INHALATION DAILY 01/16/20 01/16/20 aspirin 81 mg PO DAILY 01/16/20 01/16/20 atorvastatin 40 mg PO BEDTIME 01/16/20 01/16/20 fenofibrate 54 mg PO DAILY 01/16/20 01/16/20 gabapentin 600 mg PO BEDTIME 01/16/20 01/16/20 levothyroxine 175 mcg PO DAILY 01/16/20 01/16/20 lisinopril 5 mg PO DAILY 01/16/20 01/16/20 lorazepam 1 tab PO BID 01/16/20 01/16/20 metformin 500 mg PO BID 01/16/20 01/16/20 methenamine hippurate 1 g PO DAILY 01/16/20 01/16/20 naproxen 375 mg PO DAILY 01/16/20 01/16/20 prednisone 7.5 mg PO DAILY 01/16/20 01/16/20 Previous Rx's Medication Instructions Recorded pantoprazole 40 mg tablet,delayed 40 mg PO DAILY 90 Days #90 tab 12/11/19 release buspirone 15 mg tablet 15 mg PO BID 90 Days #180 tab 12/29/19 albuterol sulfate 90 mcg/actuation 2 puff INHALATION QID #8.5 g 01/01/20 aerosol inhaler clonidine HCl 0.1 mg tablet 0.1 mg PO TID PRN #90 tab 01/01/20 oxycodone-acetaminophen 5 mg-325 1 tab PO Q8H PRN 28 Days #84 tab 01/09/20 mg tablet promethazine 25 mg tablet 25 mg PO TID PRN 10 Days #30 tab 01/09/20 DS: Summary Hospital Course Hospital Course: patient was admitted for nausea vomiting and dehydration likely due to hypercalcemia. Patient has history of hyperparathyroidism and is also taking Tums, vitamin-D, hydrochlorothiazide. She was given normal saline and calcium significantly improved as did her symptoms and she was able to tolerate p.o. diet. She was seen by Nephrology who recommended discontinuing Tums, vitamin-D, hydrochlorothiazide, repeating labs in about 1 week and outpatient follow-up. She had a parathyroid hormone level drawn an the hospital that is still pending and should be followed up. Time Spent with Patient Time attestation: Total time spent providing and/or coordinating discharge services: Physical Exam Vital Signs: Vital Signs: Last Vital Signs Temp 97.4 F 01/17/20 07:15 Pulse 61 01/17/20 07:15 Resp 18 01/17/20 07:15 BP 114/62 01/17/20 07:15 Pulse Ox 95 01/17/20 07:15 Body Mass Index 31.9 General: AO X 3, no acute distress Resp: CTA bilateral CVS: S1,S2,RRR GI: soft, non tender, non distended Neuro: motor grossly intact Psych: appropriate affect DS: Data Data Completed and Pending Labs on day of discharge: 01/16/20 12:37 IV insert/maintain .Now XR chest 1V Stat 0.9 % Sodium Chloride [Ns] 1,000 ml IV 1,000 mls/hr ondansetron HCL [Zofran] 4 mg IVPUSH ONCE ONE 01/16/20 12:38 ECG 12 lead EKG Stat EKG Documentation DIRECTED 01/16/20 12:39 CT head/brain wo con Stat 01/16/20 12:59 SARS-CoV2/FLU/RSV Stat 01/16/20 13:00 Complete Blood Count Auto Diff Stat Comprehensive Met. Panel Stat Lipase Stat Magnesium Stat Partial Thromboplastin Time Stat Prothrombin Time INR Stat Thyroid Stimulating Hormone Stat Troponin-I High Sensitivity Stat 01/16/20 13:59 Magnesium Sulfate/H2O 2 gm in 50 ml IV ONCE Potassium Chloride ER [Klor-con] 20 meq PO ONCE ONE 01/16/20 15:03 Transfer Order Routine 01/16/20 16:41 IV insert/maintain Q4HR 01/16/20 18:27 Glucose, Whole Blood Routine 01/16/20 19:42 UA w Microscopic Stat 01/16/20 20:19 Glucose, Whole Blood Routine 01/17/20 04:03 traZODone HCL [Desyrel] 25 mg PO ONCE ONE 01/17/20 05:41 Basic Metabolic Panel DAILY@0600 Complete Blood Count Auto Diff DAILY@0600 Magnesium Routine 01/17/20 07:24 Glucose, Whole Blood Routine 01/17/20 09:00 Patient Own Medication 1 each PO DAILY Laboratory Last Values WBC 7.0 X10*3/uL (4.8-10.8) 01/17/20 05:41 RBC 3.72 X10*6/uL (4.20-5.50) L 01/17/20 05:41 Hgb 11.4 g/dl (12.0-16.0) L 01/17/20 05:41 Hct 35.9 % (37-47) L 01/17/20 05:41 MCV 96.5 fL (80-98) 01/17/20 05:41 MCH 30.6 pg (27.0-33.0) 01/17/20 05:41 MCHC 31.8 g/dl (31.0-35.0) 01/17/20 05:41 RDW 12.3 % (11.0-16.0) 01/17/20 05:41 Plt Count 209 X10*3/uL (160-400) 01/17/20 05:41 MPV 10.4 fL (9.4-12.3) 01/17/20 05:41 Immature Gran % (Auto) 0.4 % (0.0-0.4) 01/17/20 05:41 Neut % (Auto) 51.5 % (45-73) 01/17/20 05:41 Lymph % (Auto) 35.5 % (20-40) 01/17/20 05:41 [place]arton % (Auto) 8.2 % (2-11) 01/17/20 05:41 Eos % (Auto) 3.7 % (0-4) 01/17/20 05:41 Baso % (Auto) 0.7 % (0-2) 01/17/20 05:41 Lymph # (Auto) 2.5 X10*3/uL (1.2-4.9) 01/17/20 05:41 Wharton # (Auto) 0.6 X10*3/uL (0.1-1.2) 01/17/20 05:41 Eos # (Auto) 0.3 X10*3/uL (0.0-0.4) 01/17/20 05:41 Baso # (Auto) 0.1 X10*3/uL (0.0-0.2) 01/17/20 05:41 Abs Immat Gran (auto) 0.03 X10*3/uL (0.00-0.03) 01/17/20 05:41 Absolute Neuts (auto) 3.6 X10*3/uL (2.0-8.3) 01/17/20 05:41 Absolute Nucleated RBC 0.000 X10*3/uL (0.0-0.012) 01/17/20 05:41 Nucleated RBC % (auto) 0.0 /100WBC (0.0-0.2) 01/17/20 05:41 PT 11.9 SEC (10.8-13.0) 01/16/20 13:00 INR 1.0 (0.9-1.1) 01/16/20 13:00 APTT 29.0 SEC (24.1-38.0) 01/16/20 13:00 Sodium 139 mmol/L (135-145) 01/17/20 05:41 Potassium 3.3 mmol/l (3.3-5.1) 01/17/20 05:41 Chloride 102 mmol/L (96-108) 01/17/20 05:41 Carbon Dioxide 30 mmol/L (22-29) H 01/17/20 05:41 Anion Gap 10 (12-20) L 01/17/20 05:41 BUN 15 mg/dL (9-16) 01/17/20 05:41 Creatinine 1.12 mg/dL (0.5-1.4) 01/17/20 05:41 Estim Creat Clear Calc 56.5 01/17/20 05:41 Estimated GFR 49 01/17/20 05:41 POC Glucose 75 mg/dL (60-115) 01/17/20 07:24 Random Glucose 77 mg/dL (60-115) 01/17/20 05:41 Calcium 10.3 mg/dL (8.4-10.2) H D 01/17/20 05:41 Magnesium 1.6 mg/dL (1.6-2.6) 01/17/20 05:41 Total Bilirubin 0.2 mg/dL (0.0-1.0) 01/16/20 13:00 AST 14 U/L (5-31) 01/16/20 13:00 ALT 9 U/L (0-31) 01/16/20 13:00 Alkaline Phosphatase 52 U/L (39-117) 01/16/20 13:00 Troponin I High Sens 5.7 ng/L (<3.5-17.0) 01/16/20 13:00 Total Protein 6.0 g/dL (6.5-8.0) L 01/16/20 13:00 Albumin 4.0 g/dL (3.5-5.0) 01/16/20 13:00 Lipase 23 U/L (8-78) 01/16/20 13:00 TSH 0.40 uIU/mL (0.32-4.0) 01/16/20 13:00 Urine Color YELLOW 01/16/20 19:42 Urine Appearance CLEAR 01/16/20 19:42 Urine pH 8.5 (5.0-8.0) H 01/16/20 19:42 Ur Specific [place] 1.020 (1.005-1.025) 01/16/20 19:42 Urine Protein NEG MG/DL (NEG-TRACE) 01/16/20 19:42 Urine Glucose (UA) NEG MG/DL (NEG) 01/16/20 19:42 Urine Ketones NEG MG/DL (NEG) 01/16/20 19:42 Urine Blood NEG (NEG) 01/16/20 19:42 Urine Nitrite NEG (NEG) 01/16/20 19:42 Ur Leukocyte Esterase NEG (NEG) 01/16/20 19:42 Urine RBC 0 /HPF (0) 01/16/20 19:42 Urine WBC 0-2 /HPF (0-4) 01/16/20 19:42 Ur Squamous Epith Cells TRACE /LPF 01/16/20 19:42 Urine Bacteria TRACE /LPF 01/16/20 19:42 Coronavirus (PCR) NEGATIVE (Negative) 01/16/20 12:59 COVID-19 PCR Cancelled 01/16/20 12:59 Influenza Type A (PCR) NEGATIVE (Negative) 01/16/20 12:59 Influenza Type B (PCR) NEGATIVE (Negative) 01/16/20 12:59 RSV RNA Qual (PCR) NEGATIVE (Negative) 01/16/20 12:59 Discharge Plan Discharge Patient Disposition: Home, Self-Care Referrals: Mikey Villavicencio MD [Primary Care Provider] - Wily Chau MD [Physician] - Discharge Medications: Continued pantoprazole 40 mg tablet,delayed release (DR/EC) 40 mg PO DAILY 90 Days Qty: 90 RF: 1 buspirone 15 mg tablet 15 mg PO BID 90 Days Qty: 180 RF: 12 clonidine HCl 0.1 mg tablet 0.1 mg PO TID PRN (Reason: anxiety) Qty: 90 RF: 3 albuterol sulfate 90 mcg/actuation HFA aerosol inhaler 2 puff inhalation QID Qty: 8.5 RF: 3 promethazine 25 mg tablet 25 mg PO TID PRN (Reason: nausea and vomiting) 10 Days Qty: 30 RF: 0 oxycodone-acetaminophen [Percocet] 5-325 mg tablet 1 tab PO Q8H PRN (Reason: pain) 28 Days Qty: 84 RF: 0 naproxen 375 mg tablet 375 mg PO DAILY RF: 0 lorazepam 1 mg tablet 1 tab PO BID RF: 0 fenofibrate 54 mg tablet 54 mg PO DAILY RF: 0 Incruse Ellipta 62.5 mcg/actuation blister with device 1 puff inhalation DAILY RF: 0 Cosentyx Pen (2 Pens) 150 mg/mL pen injector 2 syringe subcut Q4W RF: 0 methenamine hippurate 1 gram tablet 1 g PO DAILY RF: 0 gabapentin 300 mg capsule 600 mg PO BEDTIME RF: 0 atorvastatin 40 mg Tablet 40 mg PO BEDTIME RF: 0 metformin 500 mg Tablet 500 mg PO BID RF: 0 levothyroxine 175 mcg Tablet 175 mcg PO DAILY RF: 0 prednisone 2.5 mg Tablet 7.5 mg PO DAILY RF: 0 aspirin 81 mg Tablet 81 mg PO DAILY RF: 0 lisinopril 5 mg Tablet 5 mg PO DAILY RF: 0 Discontinued triamterene-hydrochlorothiazid 37.5-25 mg capsule 1 cap PO DAILY 90 Days Qty: 90 RF: 12 Discharge Orders: Discharge Order (Routine); Ordered 01/17/20 Ordered By: Jose Guadalupe Santiago Activity on Discharge: As tolerated Other Ambulatory Orders: Comprehensive Met. Panel (Routine) Timeframe: 1 Week Facility: [facility] - Location: Laboratory Ordered By: Jose Guadalupe Santiago Visit Report Forms: Patient Portal Discharge page Care Plan Goals: recovery Health Concerns: hypecalcemia Plan of Treatment: stop tums, vitamin d, hydrochlorothiazide, repeat labs in one week
--- NOTE | 2020-01-17 11:29 | PM.CNNEP ---
History of Present Illness Reason for Consult Consult date: 01/17/20 Reason for consult: hyperca Chief Complaint Chief complaint: hypercalcemia History of Present Illness Narrative: Second [facility] [place] to ER in past 3 days with N/V and feellng unwell. Labs revealed metbaolic abnl: high CA up to 13.9, low K and low Mg. She is on dyazide ( longstanding) and had rare mild hyperCa in past. She does take tums and vit D as well. IVF last nite and Ca down to 10.3 and she wants to go home today. No H/O kidney stones. GH. Denies confusion. GI sxms resolved. Asthma COPD (chronic obstructive pulmonary disease) Diabetes Fibromyalgia GERD (gastroesophageal reflux disease) Hypertension Hypertriglyceridemia Hypothyroid Intractable nausea and vomiting Iron deficiency anemia Lipoprotein deficiencies Lumbar degenerative disc disease Polymyalgia rheumatica [facility] Past Medical History Medical History (Updated 01/17/20 @ 11:27 by Jose Guadalupe Santiago MD) Asthma COPD (chronic obstructive pulmonary disease) Diabetes Fibromyalgia GERD (gastroesophageal reflux disease) Graves' disease Hypertension Hypertriglyceridemia Hypothyroid Intractable nausea and vomiting Iron deficiency anemia Lipoprotein deficiencies Lumbar degenerative disc disease Polymyalgia rheumatica Surgical History Surgical History History of thyroidectomy Hx of cholecystectomy Social History Social History Household Members: None Housing: House Do you presently have visiting nurse or other home services: No Alcohol intake: never Smoking Status: Current every day smoker Tobacco Type: Cigarette Packs Per Day: 2.5 Cigarettes Per Day: 50.0 Years Smoked: 40 Smoked in Last 30 Days: Yes Patient Interested in Nicotine Replacement: Yes Patient Given Instructions on How to Stop Smoking: No Use of substances other than those prescribed or required for medical reasons: No Currently Displaying Signs/Symptoms of Drug Intoxication Withdrawal: No Have you been hit, kicked, punched, or otherwise hurt by someone within the past year? If so, by whom?: No Do you feel safe in your current relationship?: No Is there a partner from a previous relationship who is making you feel unsafe now?: No Are you made to feel afraid or neglected: No Advance Directives: No Advance Directives Information Provided: Yes Do you have thoughts of harming others: None Do you have a plan to hurt others: No Plan Recently lost weight without trying: Yes service: No Current occupational status: retired Meds Allergies Allergy/AdvReac Type Severity Reaction Status Date / Time codeine [Codeine] AdvReac Unknown VOMITING Verified 01/14/20 14:40 absorbable sutures Allergy Unknown Unknown Uncoded 01/14/20 14:40 Cat/Feline Product Allergy Unknown SWELLING,INFECTION Uncoded 01/14/20 14:40 Derivatives AT SITE WITH CAT GUT SUTURES codeine Allergy Unknown vomiting Uncoded 01/14/20 14:40 Codeine Phosphate Allergy Unknown Unknown Uncoded 01/14/20 14:40 dissolving stitches Allergy Unknown Unknown Uncoded 01/14/20 14:40 DISSOLVING SUTURES Allergy Unknown INFECTIONS Uncoded 01/14/20 14:40 Home Medications Medication Instructions Recorded Confirmed Type Cosentyx Pen (2 Pens) 2 syringe SUBCUT Q4W 01/16/20 01/16/20 History Incruse Ellipta 1 puff INHALATION DAILY 01/16/20 01/16/20 History aspirin 81 mg PO DAILY 01/16/20 01/16/20 History atorvastatin 40 mg PO BEDTIME 01/16/20 01/16/20 History fenofibrate 54 mg PO DAILY 01/16/20 01/16/20 History gabapentin 600 mg PO BEDTIME 01/16/20 01/16/20 History levothyroxine 175 mcg PO DAILY 01/16/20 01/16/20 History lisinopril 5 mg PO DAILY 01/16/20 01/16/20 History lorazepam 1 tab PO BID 01/16/20 01/16/20 History metformin 500 mg PO BID 01/16/20 01/16/20 History methenamine hippurate 1 g PO DAILY 01/16/20 01/16/20 History naproxen 375 mg PO DAILY 01/16/20 01/16/20 History prednisone 7.5 mg PO DAILY 01/16/20 01/16/20 History Physical Exam Vital Signs: Last Vital Signs Temp 97.4 F 01/17/20 07:15 Pulse 61 01/17/20 07:15 Resp 18 01/17/20 07:15 BP 114/62 01/17/20 07:15 Pulse Ox 95 01/17/20 07:15 Body Mass Index 31.9 Const General: cooperative and healthy appearing; No acute distress or intoxicated appearing Nutritional Appearance: average body habitus Orientation/consciousness: patient oriented x3 HENMT Head: Yes normal to inspection Ears: hearing grossly normal bilaterally Eyes General: appearance normal, both eyes and all related structures Visual Herrera: normal visual herrera by confrontation Neck Neck: Yes normal visual inspection and No tender Thyroid: Thyroid normal Chest Chest palpation & inspection: normal inspection of the chest Resp Effort & Inspection: normal respiratory effort Cardio Jugular venous distension: no JVD GI Inspection: Yes normal to inspection Percussion: Yes normal to percussion Auscultation: normal bowel sounds General: Yes no CVA tenderness Back/Spine/Pelvis Back: no CVA tenderness Skin General skin exam: no rashes or lesions noted Neuro General: patient oriented x3 Extrem General: Yes normal to inspection Results Lab Results Result Diagrams: 01/17/20 05:41 01/17/20 05:41 Lab results: Chemistry 01/16/20 01/17/20 13:00 05:41 Sodium 140 139 Potassium 3.0 L D 3.3 Carbon Dioxide 36 H 30 H BUN 12 15 Creatinine 1.29 1.12 Calcium 12.8 H* 10.3 H D Hematology 01/16/20 01/17/20 13:00 05:41 WBC 8.9 7.0 Hgb 13.3 11.4 L Plt Count 247 209 Urinalysis 01/16/20 19:42 Urine Color YELLOW Urine Appearance CLEAR Urine pH 8.5 H Ur Specific [place] 1.020 Urine Protein NEG Urine Glucose (UA) NEG Urine Ketones NEG Urine Blood NEG Urine Nitrite NEG Ur Leukocyte Esterase NEG Urine RBC 0 Urine WBC 0-2 Ur Squamous Epith Cells TRACE Laboratory Tests 05/10/18 01/14/20 01/16/20 10:45 12:25 13:00 Calcium 10.6 H 13.9 H* 12.8 H* 01/17/20 05:41 Calcium 10.3 H D Assessment and Plan (1) Hypercalcemia: Status: Acute (2) Hypomagnesemia: Status: Acute (3) Acute hypokalemia: Status: Acute (4) Weakness: Status: Acute (5) Intractable nausea and vomiting: Status: Acute 1. HyperCa: w/u inprogress DDx: copmbination of invcr PO and decr Ur excretion d/t meds: HCTZ and PO Ca/vit D Primary HPtism ( 2010 had incr PTH of 110 but Ca was 9.5 at that time) Cancer assoc hyprerCa: myeloma vs PTHrp Vit D,125 excess syndrome: granulomatous dis: sarcoid, TB, etc.. REC: send labs for above ( I will order); d/c HCTZ, D/C vit D and Ca; repeat labs Wednesday or Wednesday as outpt; encourage adequate PO ffluid intake i will arrange f/u wiht me next week as may need furhter eval or interventions
[2020-01-17 11:52] LABS: Glucose, Whole Blood 154 mg/dL (60-115)
[2020-01-17 11:55] VITALS: BP 99/67; PULSE 93; RESP 16; TEMP 36.5; O2SAT 95
[2020-01-17 11:59] VITALS: BP 113/64
--- NOTE | 2020-01-17 12:32 | MHC.CM.PN ---
Patient will be discharged home today with no services. CM set up [facility] shuttle for 2pm. Nurse and patient aware.
[2020-01-17 12:46] LABS: Calcium 9.5 mg/dL (8.4-10.2)
[2020-01-17 13:06] LABS: Calcium (PTHI) 11.9 mg/dL (8.6-10.4); PTHI 12 pg/mL (14-64)
[2020-01-18 17:54] LABS: Calcium, Random Urine 13.8 mg/dL
[2020-01-19 12:02] LABS: Calcium (PTHI) 9.9 mg/dL (8.6-10.4); PTHI 14 pg/mL (14-64)
[2020-01-19 12:26] LABS: IgA 180 mg/dL (70-320); IgG 367 mg/dL (600-1540); IgM 68 mg/dL (50-300)
--- NOTE | 2020-01-22 15:43 | HP_ITS ---
DATE OF SERVICE: 01/16/2020 CHIEF COMPLAINT: Nausea. HISTORY OF PRESENT ILLNESS: A 64-year-old woman presenting from home with complaints of worsening nausea. She reports over the last 2 months, she feels like her symptoms have been getting worse. Over the last week, she has had a poor appetite, nausea, and some mild abdominal pain. She denied any nausea, vomiting, diarrhea, fever, or chills. She reported that she had been taken at least 6 times a day more recently. She did present to the ER the other day, but was not able to stay due to a pet concern at home, but she did return because of continued symptoms. She was found to have a calcium of 12.8, magnesium 1.4, potassium 3.0. Garvin virus PCR negative. Looking back at her history, it appears that she has always had a degree of hypercalcemia with calcium ranging anywhere from 9 to 11. She reports thyroidectomy and PTH in the past, was elevated at 110.4 in 2010. She was given some IV fluids, IV magnesium, Zofran, potassium while in the ER. She will be admitted for further management and treatment of hypercalcemia. PAST MEDICAL HISTORY: 1. Anxiety. 2. Depression. 3. Tobacco use. 4. Polymyalgia rheumatica. 5. Hypothyroidism. 6. Iron-deficiency anemia. 7. Hyperlipidemia. 8. Asthma. 9. COPD. 10. Hyperparathyroidism. FAMILY HISTORY: Father at the age of 80 of a heart attack and lung cancer. SOCIAL HISTORY: Smokes 2 packs of cigarettes a day. Lives alone. Denies alcohol or illicit drug use. ALLERGIES: ALLERGIES TO CODEINE, CATS, DISSOLVING SUTURES. MEDICATIONS: 1. Albuterol sulfate 90 mcg 2 puffs q.i.d. as needed. 2. Aspirin 81 mg p.o. daily. 3. Atorvastatin 40 mg p.o. at bedtime. 4. Buspirone 15 mg b.i.d. 5. Clonidine 0.1 mg p.o. t.i.d. p.r.n. 6. Fenofibrate 54 mg p.o. daily. 7. Gabapentin 600 mg p.o. at bedtime. 8. Levothyroxine 175 mcg p.o. daily. 9. Lisinopril 5 mg p.o. daily. 10. Lorazepam 1 tab p.o. b.i.d. 11. Metformin 500 mg p.o. b.i.d. 12. Methenamine hippurate 1 g p.o. daily. 13. Naproxen 375 mg p.o. daily. 14. Oxycodone/acetaminophen 5-325 mg 1 tab p.o. q.8 hours p.r.n. for pain. 15. Pantoprazole sodium 40 mg p.o. daily. 16. Prednisone 7.5 mg p.o. daily. 17. Promethazine 25 mg p.o. t.i.d. p.r.n. for 10 days. 18. Cosentyx every 4 weeks. 19. Triamterene hydrochlorothiazide 1 tab p.o. daily. 20. Incruse Ellipta 1 puff p.o. daily. REVIEW OF SYSTEMS: CONSTITUTIONAL: Denies any recent fever, chills, or decrease in appetite. RESPIRATORY: Denies any shortness of breath, cough, or sputum production. CARDIOVASCULAR: Denies any chest pain, orthopnea, PND, or edema. GASTROINTESTINAL: See HPI. GENITOURINARY: Denies any dysuria, frequency, hematuria. MUSCULOSKELETAL: Denies any joint pain or swelling. NEUROPSYCH: Denies any weakness or seizures. All other systems are reviewed and negative. PHYSICAL EXAMINATION: CONSTITUTIONAL: Resting in bed. No acute distress. VITAL SIGNS: 97.4, 94, 20, 151/81. HEENT: Normocephalic, atraumatic. Eyes: Pupils are PERRLA. Sclerae anicteric. Mouth and Throat: Mucous membranes are intact and moist. NECK: Supple. No lymphadenopathy. No JVD noted. CHEST: Clear to auscultation without wheezes, rhonchi, or rales. HEART: Regular rate and rhythm. Clear S1, S2. No murmurs, rubs, gallops. ABDOMEN: Obese. Positive bowel sounds. Soft, nontender. No hepatomegaly or splenomegaly noted. NEURO: The patient is alert and oriented x3. Cranial nerves II through XII grossly intact without focal deficits. LABORATORY DATA: WBC 8.9, hemoglobin 13.3, hematocrit 40.3, platelets 247. Sodium is 140, potassium 3.0, chloride is 96, bicarb is 36, BUN is 12, creatinine is 1.29, calcium is 12.8, magnesium is 1.4. ASSESSMENT AND PLAN: A 64-year-old woman, who is being admitted with hypercalcemia, appears to be chronic and appears that she probably has a history of hyperparathyroidism. We will treat her symptoms for now and patient will need to follow up with Endocrinology as an outpatient, but she will be seen by Nephrology here. 1. Hypercalcemia. Likely primary hyperparathyroidism. We will have Nephro see the patient. Continue IV fluids, hold diuretics, check PTH. 2. Hypomagnesemia. Replete in the ER. We will recheck tomorrow. 3. Hypokalemia. Replete in the ER. We will follow BMP closely. 4. Hypertension. Continue clonidine and lisinopril. Hold the triamterene hydrochlorothiazide for now. 5. Chronic pain. Continue oxycodone and naproxen. 6. Gastroesophageal reflux disease. Continue PPI. 7. Diabetes mellitus. Sliding scale, ADA diet. Continue metformin. 8. Hypothyroidism. Continue levothyroxine. 9. Depression/anxiety. Continue buspirone, lorazepam. 10. Hyperlipidemia. Continue statin and aspirin. 11. Chronic obstructive pulmonary disease. DuoNeb as needed. 12. Smoker. Nicotine replacement therapy. Discussed smoking cessation. 13. Deep vein thrombosis prophylaxis with Lovenox. 14. Case discussed with Dr. Santiago. 15. Full code. ELVI Coles MD JR/RADHA / [id number]
[2020-01-22 19:09] LABS: VITAMIN D (1,25 OH) D3 10 pg/mL; Vit D (1,25-Dihydroxy) Total 10 pg/mL (18-72); Vitamin D (1,25 OH) D2 <8 pg/mL
[2020-01-23 15:51] LABS: Kappa, Serum 98 mg/dL (176-443); Kappa/Lambda Ratio, Serum 1.29 (1.29-2.55); Lambda, Serum 76 mg/dL (91-240)
== END 2020-01-17 13:48 | disposition home or self-care (01) | DRG 641 ==
LOC: HO.ED 13:41 → HO.IMC 15:34
PROVIDERS: Internal Medicine Nephrology; Nurse Practitioner Acute Care; Nurse Practitioner Primary Care; Admitting Provider Internal Medicine; Emergency Provider Emergency Medicine; PCP Internal Medicine; Visit Provider Internal Medicine
DX: E83.52 Hypercalcemia (principal); K21.9 Gastro-esophageal reflux disease without esophagitis; E03.9 Hypothyroidism, unspecified; Z20.828 Contact with and (suspected) exposure to other viral communicable diseases; E78.5 Hyperlipidemia, unspecified; E87.6 Hypokalemia; E83.42 Hypomagnesemia; F17.210 Nicotine dependence, cigarettes, uncomplicated; Z71.6 Tobacco abuse counseling; Z88.0 Allergy status to penicillin; Z79.82 Long term (current) use of aspirin; Z79.1 Long term (current) use of non-steroidal anti-inflammatories (NSAID); Z79.899 Other long term (current) drug therapy
CPT/HCPCS: 0241U; 36415; 70450; 71045; 71046; 71250; 74176; 80048; 80053; 80076; 81001; 82310; 82652; 82784; 82947; 83690; 83735; 83883; 83970; 84100; 84443; 84484; 85025; 85610; 85730; 86334; 87086; 93005; 94640; 96361; 96365; 96366; 96375; 96376; 99284; 99285; J1650; J2405; J3475; U0003

== ENCOUNTER 2020-01-28 16:19 | Emergency (ER) | payer MEDICARE, OTHER, SELFPAY ==
[2020-01-28 16:38] VITALS: BP 112/70; BP 91/65; PULSE 92; PULSE 94; RESP 18; TEMP 37.2; O2SAT 97; BMI 31.8
[2020-01-28] MEDS: 0.9 % Sodium Chloride 1,000 ML 999 ML IVCONT (16:50)
--- NOTE | 2020-01-28 16:54 | ED_ITS ---
HPI - General Adult General Chief complaint: Nausea/Vomiting/Diarrhea Stated complaint: INCREASED LETHARGY,NAUSEA Time Seen by Provider: 01/28/20 16:45 Source: patient Mode of arrival: ambulatory Limitations: no limitations History of Present Illness HPI narrative: patient's history of hypercalcemia secondary to hy perparathyroidism it was 11.9 on 01/15 planning for surgery. Patient came here for increased lethargic and nausea with poor oral intake. Patient was sent by beef specialist to recheck the calcium level and lytes as a cause of nausea patient denies any abdominal pain or distention no fever or chills no urinary complaints Onset (ago): week(s) ( several) Related Data Home Medications Medication Instructions Recorded Confirmed Cosentyx Pen (2 Pens) 2 syringe SUBCUT Q4W 01/16/20 01/16/20 Incruse Ellipta 1 puff INHALATION DAILY 01/16/20 01/16/20 aspirin 81 mg PO DAILY 01/16/20 01/16/20 atorvastatin 40 mg PO BEDTIME 01/16/20 01/16/20 fenofibrate 54 mg PO DAILY 01/16/20 01/16/20 gabapentin 600 mg PO BEDTIME 01/16/20 01/16/20 levothyroxine 175 mcg PO DAILY 01/16/20 01/16/20 lisinopril 5 mg PO DAILY 01/16/20 01/16/20 lorazepam 1 tab PO BID 01/16/20 01/16/20 metformin 500 mg PO BID 01/16/20 01/16/20 methenamine hippurate 1 g PO DAILY 01/16/20 01/16/20 naproxen 375 mg PO DAILY 01/16/20 01/16/20 prednisone 7.5 mg PO DAILY 01/16/20 01/16/20 Lactobacillus acidophilus 100 mg PO DAILY 01/25/20 docusate sodium 100 mg capsule 100 mg PO DAILY 01/25/20 lorazepam 1 mg tablet 1 mg PO BID PRN 01/25/20 ondansetron HCl 8 mg tablet 8 mg PO DAILY PRN 01/25/20 vitamin B complex-vitamin C-folic 1 tab PO DAILY 01/25/20 acid 0.8 mg tablet Previous Rx's Medication Instructions Recorded pantoprazole 40 mg tablet,delayed 40 mg PO DAILY 90 Days #90 tab 10/05/20 release buspirone 15 mg tablet 15 mg PO BID 90 Days #180 tab 12/29/19 albuterol sulfate 90 mcg/actuation 2 puff INHALATION QID #8.5 g 01/01/20 aerosol inhaler clonidine HCl 0.1 mg tablet 0.1 mg PO TID PRN #90 tab 01/01/20 oxycodone-acetaminophen 5 mg-325 1 tab PO Q8H PRN 28 Days #84 tab 01/09/20 mg tablet methenamine hippurate 1 gram tablet 1 g PO BID #60 tab 01/25/20 ondansetron HCl 4 mg tablet 4 mg PO Q8H PRN #20 tab 01/25/20 ondansetron 4 mg PO Q6-8H PRN #20 tab 01/28/20 Allergies Allergy/AdvReac Type Severity Reaction Status Date / Time codeine [Codeine] AdvReac Unknown VOMITING Verified 01/14/20 14:40 absorbable sutures Allergy Unknown Unknown Uncoded 01/14/20 14:40 Cat/Feline Product Allergy Unknown SWELLING,INFECTION Uncoded 01/14/20 14:40 Derivatives AT SITE WITH CAT GUT SUTURES codeine Allergy Unknown vomiting Uncoded 01/14/20 14:40 Codeine Phosphate Allergy Unknown Unknown Uncoded 01/14/20 14:40 dissolving stitches Allergy Unknown Unknown Uncoded 01/14/20 14:40 DISSOLVING SUTURES Allergy Unknown INFECTIONS Uncoded 01/14/20 14:40 Review of Systems Review of Systems: REVIEW OF SYSTEMS: Pertinent positives and negatives are stated above in the history. GEN: no fevers, chills, fatigue HEENT: no nasal congestion, sore throat, ear pain NEURO: no headache, dizziness, focal weakness PULM: no cough, shortness of breath CV: no chest pain, palpitations, LE edema ABD: no abdominal pain, vomiting, diarrhea, nausea ++ : no dysuria, urgency, frequency SKIN: no rash ROS otherwise negative x 10 PMFSH Past Medical History Medical History Asthma COPD (chronic obstructive pulmonary disease) Diabetes Fibromyalgia GERD (gastroesophageal reflux disease) Graves' disease Hypertension Hypertriglyceridemia Hypothyroid Intractable nausea and vomiting Iron deficiency anemia Lipoprotein deficiencies Lumbar degenerative disc disease Polymyalgia rheumatica Surgical History History of thyroidectomy Hx of cholecystectomy Social History Social History Household Members: None Housing: House Alcohol intake: never Smoking Status: Current every day smoker Tobacco Type: Cigarette Packs Per Day: 2.5 Cigarettes Per Day: 50.0 Years Smoked: 40 Use of substances other than those prescribed or required for medical reasons: No Advance Directives: No Advance Directives Information Provided: Yes service: No Current occupational status: retired Physical Exam Vital Signs: Vital Signs: Last Vital Signs Temp 99.0 F 01/28/20 18:17 Pulse 81 01/28/20 18:17 Resp 19 01/28/20 18:17 BP 109/65 01/28/20 18:17 Pulse Ox 97 01/28/20 18:17 Body Mass Index 31.8 VITAL SIGNS: Reviewed. GENERAL: Well developed, well nourished, in no acute distress. HEAD: Normocephalic/atraumatic, EYES: PERRLA No pallor/icterus noted OROPHARYNX: Oral mucosa moist no oral lesions NECK: Supple, no adenopathy LUNGS: Normal breath sounds. No adventitious sounds or accessory muscle use CARDIOVASCULAR: Regular rate and rhythm without noted murmurs, no JVD or lower extremity edema. ABDOMEN: Soft, non-tender, non-distended with normal bowel sounds. No rigidity. No guarding. No palpable masses or hernias noted MUSCULOSKELETAL: No tenderness, deformities, EXTREMITIES: No cyanosis or edema. SKIN: no rashes, ulcerations, jaundice, pallor, or petechiae NEUROLOGIC: Alert and oriented x 3. Strength and sensation to light touch were grossly intact normal speech Medical Decision Making MDM Narrative Medical decision making narrative: patient with chronic nausea nonspecific weakness lab workup is with stable labs normal calcium level patient advised to follow-up with PCP and medical records field technician Macy ODT was given for chronic nausea Medical Records Medical records reviewed: Yes I reviewed the patient's medical records. Lab Data Lab results reviewed: Yes I reviewed the patient's lab results. Result diagrams: 01/28/20 17:15 01/28/20 17:15 Labs: Lab Results 01/28/20 01/28/20 01/28/20 Range/Units 17:15 17:15 19:23 WBC 11.2 H (4.8-10.8) X10*3/uL RBC 4.18 L (4.20-5.50) X10*6/uL Hgb 13.1 (12.0-16.0) g/dl Hct 40.7 (37-47) % MCV 97.4 (80-98) fL MCH 31.3 (27.0-33.0) pg MCHC 32.2 (31.0-35.0) g/dl RDW 13.4 (11.0-16.0) % Plt Count 276 D (160-400) X10*3/uL MPV 9.9 (9.4-12.3) fL Immature Gran % (Auto) 0.4 (0.0-0.4) % Neut % (Auto) 76.1 H (45-73) % Lymph % (Auto) 16.5 L (20-40) % Crawford % (Auto) 5.1 (2-11) % Eos % (Auto) 1.3 (0-4) % Baso % (Auto) 0.6 (0-2) % Lymph # (Auto) 1.8 (1.2-4.9) X10*3/uL Crawford # (Auto) 0.6 (0.1-1.2) X10*3/uL Eos # (Auto) 0.1 (0.0-0.4) X10*3/uL Baso # (Auto) 0.1 (0.0-0.2) X10*3/uL Abs Immat Gran (auto) 0.05 H (0.00-0.03) X10*3/uL Absolute Neuts (auto) 8.5 H (2.0-8.3) X10*3/uL Absolute Nucleated RBC 0.000 (0.0-0.012) X10*3/uL Nucleated RBC % (auto) 0.0 (0.0-0.2) /100WBC Sodium 141 (135-145) mmol/L Potassium 5.1 D (3.3-5.1) mmol/l Chloride 104 (96-108) mmol/L Carbon Dioxide 29 (22-29) mmol/L Anion Gap 13 (12-20) BUN 13 (9-16) mg/dL Creatinine 0.97 (0.5-1.4) mg/dL Estim Creat Clear Calc 65.1 Estimated GFR 58 Random Glucose 96 (60-115) mg/dL Uric Acid 6.3 H (2.4-5.7) mg/dL Calcium 8.6 D (8.4-10.2) mg/dL Phosphorus 1.9 L (2.7-4.5) mg/dL Magnesium 1.9 (1.6-2.6) mg/dL Total Bilirubin < 0.2 (0.0-1.0) mg/dL Direct Bilirubin < 0.2 (0.0-0.5) mg/dL AST 16 (5-31) U/L ALT 10 (0-31) U/L Alkaline Phosphatase 58 (39-117) U/L Total Creatine Kinase 59 (26-140) U/L Total Protein 6.1 L (6.5-8.0) g/dL Albumin 4.1 (3.5-5.0) g/dL 25-OH Vitamin D Total 62.4 (>30) ng/mL Urine Color YELLOW Urine Appearance CLEAR Urine pH 8.0 (5.0-8.0) Ur Specific Bigelow 1.010 (1.005-1.025) Urine Protein NEG (NEG-TRACE) MG/DL Urine Glucose (UA) NEG (NEG) MG/DL Urine Ketones NEG (NEG) MG/DL Urine Blood NEG (NEG) Urine Nitrite NEG (NEG) Ur Leukocyte Esterase NEG (NEG) Discharge Plan Discharge Clinical Impression: Weakness, Nausea Patient Disposition: Home, Self-Care Additional Instructions: drink plenty of fluids and follow with you beef specialist and PCP Prescriptions: New ondansetron 4 mg tablet,disintegrating 4 mg PO Q6-8H PRN (Reason: nausea and vomiting) Qty: 20 RF: 0 No Action pantoprazole 40 mg tablet,delayed release (DR/EC) 40 mg PO DAILY 90 Days Qty: 90 RF: 1 buspirone 15 mg tablet 15 mg PO BID 90 Days Qty: 180 RF: 12 clonidine HCl 0.1 mg tablet 0.1 mg PO TID PRN (Reason: anxiety) Qty: 90 RF: 3 albuterol sulfate 90 mcg/actuation HFA aerosol inhaler 2 puff inhalation QID Qty: 8.5 RF: 3 oxycodone-acetaminophen [Percocet] 5-325 mg tablet 1 tab PO Q8H PRN (Reason: pain) 28 Days Qty: 84 RF: 0 methenamine hippurate 1 gram tablet 1 g PO BID Qty: 60 RF: 1 naproxen 375 mg tablet 375 mg PO DAILY RF: 0 lorazepam 1 mg tablet 1 tab PO BID RF: 0 fenofibrate 54 mg tablet 54 mg PO DAILY RF: 0 Incruse Ellipta 62.5 mcg/actuation blister with device 1 puff inhalation DAILY RF: 0 Cosentyx Pen (2 Pens) 150 mg/mL pen injector 2 syringe subcut Q4W RF: 0 methenamine hippurate 1 gram tablet 1 g PO DAILY RF: 0 gabapentin 300 mg capsule 600 mg PO BEDTIME RF: 0 atorvastatin 40 mg Tablet 40 mg PO BEDTIME RF: 0 metformin 500 mg Tablet 500 mg PO BID RF: 0 levothyroxine 175 mcg Tablet 175 mcg PO DAILY RF: 0 prednisone 2.5 mg Tablet 7.5 mg PO DAILY RF: 0 aspirin 81 mg Tablet 81 mg PO DAILY RF: 0 lisinopril 5 mg Tablet 5 mg PO DAILY RF: 0 ondansetron HCl 8 mg tablet 8 mg PO DAILY PRNRF: 0 Lactobacillus acidophilus [Acidophilus] Capsule 100 mg PO DAILY RF: 0 lorazepam 1 mg tablet 1 mg PO BID PRNRF: 0 docusate sodium [Stool Softener] 100 mg capsule 100 mg PO DAILY RF: 0 B complex-vitamin C-folic acid 0.8 mg tablet 1 tab PO DAILY RF: 0 ondansetron HCl [Zofran] 4 mg tablet 4 mg PO Q8H PRN (Reason: nausea and vomiting) Qty: 20 RF: 0 Interventions: ED Discharge Assessment Last Done: 01/28/20 19:49 Discharge Date/Time: 01/28/20 19:51
[2020-01-28 17:20] LABS: MANUAL DIFF FLAG NO
[2020-01-28 17:48] LABS: Basophils Absolute Auto 0.1 X10*3/uL (0.0-0.2); Basophils Percent Auto 0.6 % (0-2); Eosinophils Absolute Auto 0.1 X10*3/uL (0.0-0.4); Eosinophils Percent Auto 1.3 % (0-4); Hematocrit 40.7 % (37-47); Hemoglobin 13.1 g/dl (12.0-16.0); Imm Gran Abs Auto 0.05 X10*3/uL (0.00-0.03); Imm Gran Pct Auto 0.4 % (0.0-0.4); Lymphocytes Absolute Auto 1.8 X10*3/uL (1.2-4.9); Lymphocytes Percent Auto 16.5 % (20-40); Mean Corpuscular HGB Conc 32.2 g/dl (31.0-35.0); Mean Corpuscular Hemoglobin 31.3 pg (27.0-33.0); Mean Corpuscular Volume 97.4 fL (80-98); Mean Platelet Volume 9.9 fL (9.4-12.3); Monocytes Absolute Auto 0.6 X10*3/uL (0.1-1.2); Monocytes Percent Auto 5.1 % (2-11); Neutrophils Absolute Auto 8.5 X10*3/uL (2.0-8.3); Neutrophils Percent Auto 76.1 % (45-73); Platelet Count 276 X10*3/uL (160-400); Red Blood Count 4.18 X10*6/uL (4.20-5.50); Red Cell Distribution Width 13.4 % (11.0-16.0); White Blood Count 11.2 X10*3/uL (4.8-10.8)
[2020-01-28 17:51] LABS: Alanine Aminotransferase 10 U/L (0-31); Albumin Level 4.1 g/dL (3.5-5.0); Alkaline Phosphatase 58 U/L (39-117); Anion Gap 13 (12-20); Aspartate Amino Transferase 16 U/L (5-31); Bilirubin Direct < 0.2 mg/dL (0.0-0.5); Bilirubin Total < 0.2 mg/dL (0.0-1.0); Blood Urea Nitrogen 13 mg/dL (9-16); Calcium 8.6 mg/dL (8.4-10.2); Carbon Dioxide 29 mmol/L (22-29); Chloride 104 mmol/L (96-108); Creatinine Clr Calc Pharmacy 65.1; Estimated Glomerular Filt Rate 58; Glucose Random 96 mg/dL (60-115); Magnesium 1.9 mg/dL (1.6-2.6); Phosphorus 1.9 mg/dL (2.7-4.5); Potassium 5.1 mmol/l (3.3-5.1); Sodium 141 mmol/L (135-145); Total Protein 6.1 g/dL (6.5-8.0); Uric Acid 6.3 mg/dL (2.4-5.7)
[2020-01-28 18:08] LABS: Vitamin D 25-OH Total 62.4 ng/mL (>30)
[2020-01-28 18:17] VITALS: BP 109/65; PULSE 81; RESP 19; TEMP 37.2; O2SAT 97
[2020-01-28] MEDS: ondansetron HCL 4 MG/2 ML VIAL IVPUSH (19:05)
[2020-01-28 19:32] LABS: Glucose Urine UA NEG (NEG); Leukocyte Esterase Urine NEG (NEG); Nitrite Urine NEG (NEG); Urine Blood NEG (NEG); Urine Ketones NEG (NEG); Urine Protein NEG (NEG-TRACE)
[2020-01-28 19:33] LABS: Appearance Urine CLEAR; Color Urine YELLOW
--- NOTE | 2020-01-28 19:43 | PC.NURSE ---
PATIENT ANXIOUS TO BE DISCHARGED. AWARE. URINE SPECIMEN SENT, LABS WITHIN NORMAL RANGE. PLAN FOR DISCHARGE HOME. 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 ENCOURAGED TO WAIT FOR DISCHARGE PAPERWORK TO BE REVIEWED/SIGNED.
[2020-01-29 13:12] LABS: Calcium (PTHI) 8.8 mg/dL (8.6-10.4); PTHI 122 pg/mL (14-64)
== END 2020-01-28 19:51 | disposition home or self-care (01) ==
PROVIDERS: Emergency Provider Internal Medicine
DX: R53.1 Weakness (principal); R11.0 Nausea; I10 Essential (primary) hypertension; Z79.899 Other long term (current) drug therapy; F17.210 Nicotine dependence, cigarettes, uncomplicated; Z71.6 Tobacco abuse counseling
CPT/HCPCS: 36415; 80048; 80076; 81003; 82306; 82550; 83735; 83970; 84100; 84550; 85025; 96361; 96374; 99284; J2405

== ENCOUNTER 2020-02-06 08:52 | Outpatient (REF) | payer MEDICARE, OTHER, SELFPAY | END 2020-02-06 08:53 | disposition home or self-care (01) | LOC: HO.LAB 08:52 | PROVIDERS: Absent Provider Internal Medicine Nephrology; PCP Internal Medicine; Visit Provider Internal Medicine | DX: Z13.89 Encounter for screening for other disorder (principal) ==

== ENCOUNTER 2020-02-07 09:09 | Outpatient (REF) | payer MEDICARE, OTHER, SELFPAY ==
[2020-02-07 11:17] LABS: Albumin Level 4.3 g/dL (3.5-5.0); Anion Gap 14 (12-20); Blood Urea Nitrogen 14 mg/dL (9-16); Calcium 9.3 mg/dL (8.4-10.2); Carbon Dioxide 28 mmol/L (22-29); Chloride 102 mmol/L (96-108); Estimated Glomerular Filt Rate 54; Phosphorus 3.1 mg/dL (2.7-4.5); Potassium 4.3 mmol/l (3.3-5.1); Sodium 140 mmol/L (135-145)
[2020-02-07 11:44] LABS: Total Volume 24 Hour Urine 2025 mL
[2020-02-07 11:45] LABS: Renal w Reflex Lab Use Only Order verified
[2020-02-07 11:45] LABS: Creatinine (CrCl) 1.03 mg/dL (0.5-1.4)
[2020-02-07 13:16] LABS: Creatinine Clearance 64.7 mL/min (85-125)
[2020-02-08 18:33] LABS: Calcium, 24 Hr Urine 43 mg/24 h; Calcium/Creatinine Ratio 41 mg/g creat (30-275); Creatinine 24Hr Urine 1.03 g/24 h (0.50-2.15)
[2020-02-19 14:01] LABS: Total Volume 2025
[2020-02-19 14:02] LABS: Creatinine, 24H Ur 10.2; Magnesium, 24H Urine 126; Magnesium, Urine 24H/g Creat 124
== END 2020-02-07 09:10 | disposition home or self-care (01) ==
LOC: HO.LAB 09:09
PROVIDERS: Absent Provider Internal Medicine Rheumatology; PCP Internal Medicine; Visit Provider Internal Medicine Nephrology
DX: I10 Essential (primary) hypertension (principal); N17.9 Acute kidney failure, unspecified; E83.52 Hypercalcemia
CPT/HCPCS: 80051; 82040; 82310; 82340; 82565; 82575; 83735; 84100; 84520

== ENCOUNTER 2020-06-24 10:25 | Outpatient (REF) | payer MEDICARE, OTHER, SELFPAY ==
[2020-06-24 14:11] LABS: MANUAL DIFF FLAG NO
[2020-06-24 14:19] LABS: Glucose Urine UA NEG (NEG); Leukocyte Esterase Urine NEG (NEG); Nitrite Urine NEG (NEG); Urine Blood NEG (NEG); Urine Ketones NEG (NEG); Urine Protein NEG (NEG-TRACE)
[2020-06-24 14:21] LABS: Basophils Absolute Auto 0.1 X10*3/uL (0.0-0.2); Basophils Percent Auto 1.1 % (0-2); Eosinophils Absolute Auto 0.2 X10*3/uL (0.0-0.4); Eosinophils Percent Auto 2.5 % (0-4); Hemoglobin 13.6 g/dl (12.0-16.0); Imm Gran Abs Auto 0.04 X10*3/uL (0.00-0.03); Imm Gran Pct Auto 0.5 % (0.0-0.4); Lymphocytes Absolute Auto 2.6 X10*3/uL (1.2-4.9); Lymphocytes Percent Auto 30.5 % (20-40); Mean Corpuscular HGB Conc 32.4 g/dl (31.0-35.0); Mean Corpuscular Hemoglobin 31.8 pg (27.0-33.0); Mean Corpuscular Volume 98.1 fL (80-98); Mean Platelet Volume 9.8 fL (9.4-12.3); Monocytes Absolute Auto 0.5 X10*3/uL (0.1-1.2); Monocytes Percent Auto 6.2 % (2-11); Neutrophils Percent Auto 59.2 % (45-73); Platelet Count 271 X10*3/uL (160-400); Red Blood Count 4.28 X10*6/uL (4.20-5.50); Red Cell Distribution Width 14.6 % (11.0-16.0); White Blood Count 8.5 X10*3/uL (4.8-10.8)
[2020-06-24 14:24] LABS: Appearance Urine CLEAR; Color Urine YELLOW
[2020-06-24 14:38] LABS: Alanine Aminotransferase 13 U/L (0-31); Albumin Level 4.8 g/dL (3.5-5.0); Alkaline Phosphatase 87 U/L (39-117); Anion Gap 20 (12-20); Aspartate Amino Transferase 18 U/L (5-31); Bilirubin Total 0.4 mg/dL (0.0-1.0); Blood Urea Nitrogen 21 mg/dL (9-16); Calcium 9.5 mg/dL (8.4-10.2); Carbon Dioxide 25 mmol/L (22-29); Chloride 95 mmol/L (96-108); Cholesterol 187 mg/dL; Estimated Glomerular Filt Rate 39; Glucose Fasting 97 mg/dL (60-99); HDL Cholesterol 46 mg/dL; LDL Cholesterol Calculated 89 mg/dl; Potassium 4.4 mmol/L (3.3-5.1); Sodium 136 mmol/L (135-145); Total Protein 7.2 g/dL (6.5-8.0); Triglycerides 263 mg/dL
[2020-06-24 14:49] LABS: Microalbum/Creatinine Ratio Ur 11.8 ug/mg cr
[2020-06-24 14:52] LABS: Free T4 (Free Thyroxine) 1.15 ng/dL (0.71-1.85); Thyroid Stimulating Hormone 25.57 uIU/mL (0.32-4.0)
[2020-06-24 14:55] LABS: TSH reflex Free T4 23.84 uIU/mL (0.32-4.0)
[2020-06-24 15:08] LABS: Erythrocyte Sedimentation Rate 6 MM/HR (0-20)
== END 2020-06-24 10:26 | disposition home or self-care (01) ==
LOC: HO.10HDL 10:25
PROVIDERS: Absent Provider Internal Medicine Rheumatology; Referring Provider Internal Medicine Endocrinology, Diabetes & Metabolism; Visit Provider Internal Medicine
DX: I10 Essential (primary) hypertension (principal); E11.9 Type 2 diabetes mellitus without complications; E78.2 Mixed hyperlipidemia; E83.52 Hypercalcemia; E03.9 Hypothyroidism, unspecified; L40.50 Arthropathic psoriasis, unspecified
CPT/HCPCS: 36415; 80053; 80061; 81003; 82043; 82306; 84439; 84443; 85025; 85652; 86140

== ENCOUNTER 2020-07-31 08:50 | Day surgery (SDC) | payer MEDICARE, OTHER, SELFPAY ==
--- NOTE | 2020-07-29 14:27 | HO.ANESPROP2 ---
Documented by User: Kiera Cainey 07/30/20 09:35 HPI - Anesthesia Eval Consult details Narrative: 64yo F for Upper Endoscopy chronic prednisone for PMR PMFSH Active Problems Active Problems: All Active Problems (Updated 06/27/20 @ 23:02 by Mikey Villavicencio MD) COPD (chronic obstructive pulmonary disease) (Acute) Intermittent diarrhea (Acute) Nausea and vomiting (Acute) Diabetes mellitus (Acute) Mixed hyperlipidemia (Acute) Acquired hypothyroidism (Acute) Obesity (BMI 30-39.9) (Acute) Smoker (Acute) Depression (Acute) Anxiety (Acute) Polymyalgia rheumatica (Acute) Cervical radiculopathy due to degenerative joint disease of spine (Acute) Psoriatic arthritis (Acute) Hypercalcemia (Acute) Hypomagnesemia (Acute) Acute hypokalemia (Acute) Weakness (Acute) Intractable nausea and vomiting (Acute) GERD (gastroesophageal reflux disease) (Acute) Lumbar degenerative disc disease (Acute) Past Medical History Medical History Acquired hypothyroidism Anxiety Asthma Cervical radiculopathy due to degenerative joint disease of spine COPD (chronic obstructive pulmonary disease) Depression Diabetes Diabetes mellitus Fibromyalgia GERD (gastroesophageal reflux disease) Graves' disease Hypertension Hypertriglyceridemia Hypothyroid Intermittent diarrhea Intractable nausea and vomiting Iron deficiency anemia Lipoprotein deficiencies Lumbar degenerative disc disease Mixed hyperlipidemia Nausea and vomiting Obesity (BMI 30-39.9) Polymyalgia rheumatica Psoriatic arthritis Smoker Family History Family History Father Cancer Emphysema of lung Heart disease Surgical History Surgical History History of left breast biopsy History of thyroid surgery History of thyroidectomy History of tonsillectomy and adenoidectomy Hx of cholecystectomy Social History Social History Household Members: None Housing: House Do you presently have visiting nurse or other home services: No Alcohol intake: never Cigarette Packs Per Day: 2 Cigarettes Per Day: 40.0 Years Smoked: 40 Use of substances other than those prescribed or required for medical reasons: No Are you DNR?: Yes Advance Directives: Yes Advance Directives on File: Yes Advance Directives Date on File: 07/31/20 service: No Current occupational status: retired Meds Allergies Allergy/AdvReac Type Severity Reaction Status Date / Time codeine [Codeine] AdvReac Unknown VOMITING Verified 06/27/20 21:38 absorbable sutures Allergy Unknown Unknown Uncoded 06/27/20 21:38 Cat/Feline Product Allergy Unknown SWELLING,INFECTION Uncoded 06/27/20 21:38 Derivatives AT SITE WITH CAT GUT SUTURES dissolving stitches Allergy Unknown Unknown Uncoded 06/27/20 21:38 Home Medications Medication Instructions Recorded Confirmed Last Taken Type Cosentyx Pen (2 Pens) 2 syringe SUBCUT Q4W 01/16/20 06/27/20 12/15/19 History aspirin 81 mg PO DAILY 01/16/20 06/27/20 01/15/20 History gabapentin 600 mg PO BEDTIME 01/16/20 06/27/20 01/15/20 History lisinopril 5 mg PO DAILY 01/16/20 06/27/20 01/15/20 History metformin 500 mg PO BID 01/16/20 06/27/20 01/15/20 History naproxen 375 mg PO DAILY 01/16/20 06/27/20 01/15/20 History prednisone 7.5 mg PO DAILY 01/16/20 06/27/20 01/16/20 History Lactobacillus acidophilus 100 mg PO DAILY 01/25/20 06/27/20 Unknown History docusate sodium 100 mg capsule 100 mg PO DAILY 01/25/20 06/27/20 Unknown History vitamin B complex-vitamin C-folic 1 tab PO DAILY 01/25/20 06/27/20 Unknown History acid 0.8 mg tablet oxycodone-acetaminophen 5 mg-325 1 tab PO QID PRN 02/23/20 06/27/20 Unknown History mg tablet mirtazapine 7.5 mg tablet 15 mg PO BEDTIME tab 03/28/20 06/27/20 Unknown History fluoxetine 20 mg capsule 20 mg PO BID 06/07/20 06/27/20 Unknown History venlafaxine 100 mg tablet 100 mg PO BID 06/07/20 06/27/20 Unknown History Exam Exam Date and Time: July 29, 2020 1427 Pertinent Lab Results Pertinent Lab Results: Laboratory Tests 06/24/20 06/24/20 10:40 10:40 WBC 8.5 Hgb 13.6 Hct 42.0 Plt Count 271 Sodium 136 Potassium 4.4 Chloride 95 L Carbon Dioxide 25 BUN 21 H Creatinine 1.35 Laboratory Tests 02/07/20 09:50 Magnesium 2.0 Narrative Narrative: EKG 01/2020 Vent. Rate : 083 BPM Atrial Rate : 083 BPM P-R Int : 188 ms QRS Dur : 090 ms QT Int : 374 ms P-R-T Axes : 064 065 043 degrees QTc Int : 439 ms Sinus rhythm with occasional Premature atrial complexes RSR' or QR pattern in V1 suggests right ventricular conduction delay Abnormal ECG When compared with ECG of 14-JAN-2020 11:49, No significant changes seen Assessment and Plan Assessment Anesthesia Assessment: Chart Reviewed Documented by User: Erik Lockwood MD 07/31/20 10:19 PMFSH Past Medical History Medical History Acquired hypothyroidism Anxiety Asthma Cervical radiculopathy due to degenerative joint disease of spine COPD (chronic obstructive pulmonary disease) Depression Diabetes Diabetes mellitus Fibromyalgia GERD (gastroesophageal reflux disease) Graves' disease Hypertension Hypertriglyceridemia Hypothyroid Intermittent diarrhea Intractable nausea and vomiting Iron deficiency anemia Lipoprotein deficiencies Lumbar degenerative disc disease Mixed hyperlipidemia Nausea and vomiting Obesity (BMI 30-39.9) Polymyalgia rheumatica Psoriatic arthritis Smoker Family History Family History Father Cancer Emphysema of lung Heart disease Surgical History Surgical History History of left breast biopsy History of thyroid surgery History of thyroidectomy History of tonsillectomy and adenoidectomy Hx of cholecystectomy Social History Social History Household Members: None Housing: House Do you presently have visiting nurse or other home services: No Alcohol intake: never Cigarette Packs Per Day: 2 Cigarettes Per Day: 40.0 Years Smoked: 40 Use of substances other than those prescribed or required for medical reasons: No Are you DNR?: Yes Advance Directives: Yes Advance Directives on File: Yes Advance Directives Date on File: 07/31/20 service: No Current occupational status: retired Meds Allergies Allergy/AdvReac Type Severity Reaction Status Date / Time codeine [Codeine] AdvReac Unknown VOMITING Verified 06/27/20 21:38 absorbable sutures Allergy Unknown Unknown Uncoded 06/27/20 21:38 Cat/Feline Product Allergy Unknown SWELLING,INFECTION Uncoded 06/27/20 21:38 Derivatives AT SITE WITH CAT GUT SUTURES dissolving stitches Allergy Unknown Unknown Uncoded 06/27/20 21:38 Home Medications Medication Instructions Recorded Confirmed Last Taken Type Cosentyx Pen (2 Pens) 2 syringe SUBCUT Q4W 01/16/20 06/27/20 12/15/19 History aspirin 81 mg PO DAILY 01/16/20 06/27/20 01/15/20 History gabapentin 600 mg PO BEDTIME 01/16/20 06/27/20 01/15/20 History lisinopril 5 mg PO DAILY 01/16/20 06/27/20 01/15/20 History metformin 500 mg PO BID 01/16/20 06/27/20 01/15/20 History naproxen 375 mg PO DAILY 01/16/20 06/27/20 01/15/20 History prednisone 7.5 mg PO DAILY 01/16/20 06/27/20 01/16/20 History Lactobacillus acidophilus 100 mg PO DAILY 01/25/20 06/27/20 Unknown History docusate sodium 100 mg capsule 100 mg PO DAILY 01/25/20 06/27/20 Unknown History vitamin B complex-vitamin C-folic 1 tab PO DAILY 01/25/20 06/27/20 Unknown History acid 0.8 mg tablet oxycodone-acetaminophen 5 mg-325 1 tab PO QID PRN 02/23/20 06/27/20 Unknown History mg tablet mirtazapine 7.5 mg tablet 15 mg PO BEDTIME tab 03/28/20 06/27/20 Unknown History fluoxetine 20 mg capsule 20 mg PO BID 06/07/20 06/27/20 Unknown History venlafaxine 100 mg tablet 100 mg PO BID 06/07/20 06/27/20 Unknown History Assessment and Plan Assessment Anesthesia Assessment: Anesthesia Plan Discussed and Chart Reviewed Final Anesthetic Review NPO: Yes ASA Class: III Final Preanesthetic Review: No Changes in Pt Med Stat, Meds/Allgs Chart Reviewed, Consent Obtained/Reviewed and Anes Risks/Benef Reviewed Patient Risk: Intermediate Procedure Risk: Low Anesthetic Plan Anesthetic Plan: MAC: Disposition: Standard PACU
[2020-07-31 09:35] VITALS: BP 106/71; PULSE 106; RESP 18; TEMP 36.3; O2SAT 97; BMI 33.9
[2020-07-31 09:43] LABS: Glucose, Whole Blood 128 mg/dL (60-115)
[2020-07-31] MEDS: Lactated Ringers 1,000 ML 100 ML IVCONT (09:46)
[2020-07-31 11:25] VITALS: BP 90/60; PULSE 85; RESP 16; TEMP 36.3; O2SAT 95
--- NOTE | 2020-07-31 11:31 | P.BOP_ITS ---
Brief Operative Note Date of Service: 07/31/20 Pre-op diagnosis: Nausea, weight loss Post-op diagnosis: other (Hiatal hernia, GERD, Gastric polyps) Procedure: EGD with biopsies Surgeon: Reggie Melgar Anesthesia: MAC Was an Radiotelephone Technical Operator used for this Procedure?: No Estimated blood loss (mL): 3.0 Pathology: other (A. Descending duodenum B. Gastric antrum C. Gastric polyps D. Esophagus 38-39cm) Condition: stable Disposition: PACU
[2020-07-31 11:40] VITALS: BP 107/65; PULSE 89; RESP 20; O2SAT 96
[2020-07-31] MEDS: ondansetron HCL 4 MG/2 ML VIAL IVPUSH (11:48)
--- NOTE | 2020-07-31 17:26 | OP_ITS ---
SURGEON: Reggie Melgar MD INDICATIONS: The patient presents for evaluation of chronic nausea and weight loss. Full consent has been obtained from her for this, including risks of bleeding and perforation. PREOPERATIVE DIAGNOSIS: POSTOPERATIVE DIAGNOSIS: PROCEDURE PERFORMED: Esophagogastroduodenoscopy with biopsies. ESTIMATED BLOOD LOSS: COMPLICATIONS: ANESTHESIA: Monitored anesthesia care. ASSISTANTS: SPECIMENS: PREOPERATIVE DIAGNOSES: Nausea and weight loss. POSTOPERATIVE DIAGNOSES: Nausea and weight loss, small hiatal hernia, gastric polyps, rule out gastritis and H pylori, rule out celiac disease, rule out Giardia. DESCRIPTION OF PROCEDURE: The patient was placed in the left lateral decubitus position. The Olympus video gastroscope was passed in the posterior oropharynx and upper esophagus under direct vision. The scope was passed slowly into the distal esophagus. The gastroesophageal junction appeared at 39 cm. There was some slight irregularity consistent with reflux and some less than 5 mm erosions. There was no gross evidence of Riggs's esophagus. There was no ulceration nor mass. The scope entered into the stomach. There was a small hiatal hernia. The scope was advanced to the pylorus and the duodenum was cannulated to the descending portion. The duodenum including the bulb appeared normal without mass or ulceration. Biopsies were obtained from the 2nd and 3rd portions of duodenum. The scope was withdrawn back in the stomach. The gastric antrum and body had some mild areas of erythema, but no erosions or ulceration. There was good peristalsis. Biopsies were obtained in the gastric antrum. The scope was retroflexed visualizing the proximal stomach carefully, which appeared normal, without any sign of mass or ulceration, other than several hyperplastic appearing gastric polyps, two of which were biopsied. The scope was straightened out and withdrawn back into the esophagus. Biopsies were obtained between 38 and 39 cm. Proximal to this, the esophageal mucosa appeared normal. The scope was withdrawn from the patient. She tolerated the procedure well and was returned to the recovery area in stable condition. IMPRESSION: 1. Small hiatal hernia, gastroesophageal reflux. 2. Gastric polyps. 3. Rule out gastritis and/or Helicobacter pylori. 4. Rule out celiac disease. 5. Rule out Giardia. PLAN: The results of the biopsies will be checked. Based on today's findings, I do not see any sign of disease that would be causing her symptoms of the nausea and weight loss over the past 6 months. She has been using anti-emetics and PPI medication, but without any significant improvement in her symptoms. I shall review her medications with her and see if we need to make some changes to try to improve things. We may need to schedule her for a gastric emptying study for further evaluation as well. From what I can see on her medication list, she is using pantoprazole once a day and I shall try to increase that to twice a day to see if that gives her any improvement. I will also send her home with a prescription to use Zofran at least twice a day on a regular basis in the morning and mid-afternoon to see if that can give her some improvement on that basis. She will see me in the office in followup. She had a CAT scan in January, which did not show any findings. She is not having any abdominal pain from what she most recently told me and therefore, I do not think any repeat imaging is required. MD ADONIS Christopher/RADHA / [id number] MTDD
== END 2020-07-31 12:11 | disposition home or self-care (01) ==
PROVIDERS: PCP Internal Medicine; Visit Provider Internal Medicine
PROC: 0DJ08ZZ Inspection of Upper Intestinal Tract, Via Natural or Artificial Opening Endoscopic (ICD-10-PCS; CPT 43235; principal; 2020-07-31 10:20)
DX: R63.4 Abnormal weight loss (principal); Z68.33 Body mass index [BMI] 33.0-33.9, adult; R11.0 Nausea; K31.7 Polyp of stomach and duodenum; K21.00 Gastro-esophageal reflux disease with esophagitis, without bleeding; K44.9 Diaphragmatic hernia without obstruction or gangrene; Z90.49 Acquired absence of other specified parts of digestive tract; M79.7 Fibromyalgia; M35.3 Polymyalgia rheumatica; L40.50 Arthropathic psoriasis, unspecified; J44.9 Chronic obstructive pulmonary disease, unspecified; E11.9 Type 2 diabetes mellitus without complications; D50.9 Iron deficiency anemia, unspecified; E89.0 Postprocedural hypothyroidism; F17.210 Nicotine dependence, cigarettes, uncomplicated; Z79.52 Long term (current) use of systemic steroids; Z79.84 Long term (current) use of oral hypoglycemic drugs; Z79.1 Long term (current) use of non-steroidal anti-inflammatories (NSAID); Z79.899 Other long term (current) drug therapy; Z88.8 Allergy status to other drugs, medicaments and biological substances; Z66 Do not resuscitate
CPT/HCPCS: 43239; 82947; 88305; 88342; J2405

== ENCOUNTER 2020-08-15 11:01 | Inpatient (IN) | payer MEDICARE, OTHER, SELFPAY ==
[2020-08-15] VITALS (15 sets, daily range): BP systolic 74–112; BP diastolic 41–70; PULSE 71–103; RESP 15–26; TEMP 36.4–37.1; O2SAT 91–100; BMI 32.3
--- NOTE | 2020-08-15 | ECG_ITS ---
Test Reason : WEAKNESS Blood Pressure : / mmHG Vent. Rate : 101 BPM Atrial Rate : 101 BPM P-R Int : 178 ms QRS Dur : 086 ms QT Int : 362 ms P-R-T Axes : 058 063 047 degrees QTc Int : 469 ms Sinus tachycardia Otherwise normal ECG When compared with ECG of 16-JAN-2020 12:54, Premature atrial complexes are no longer Present Referred By: Melvin Littlejohn Electronically Signed By:NICOL BENSON MD
--- NOTE | ~2020-08-15 | CT_ITS ---
EXAMINATION: CT ABDOMEN AND PELVIS WITHOUT CONTRAST CLINICAL INFORMATION: Nausea COMPARISON: 01/14/2020 TECHNIQUE: Multidetector volumetric imaging was performed from the superior aspect of the liver through the pubic symphysis. Sagittal and coronal reformatted images were obtained on the technologist's workstation. This CT examination was performed using dose optimization techniques as appropriate, variously including the following: *Automated exposure control *Adjustment of mA and/or kV according to patient size (this includes techniques or standardized protocols for targeted exams where dose is matched to indication/reason for exam; i.e. extremities or head) *Use of iterative reconstruction technique DLP: 806 mGy-cm FINDINGS: LUNG BASES: Respiratory motion limits sensitivity. No acute findings. LIVER, GALLBLADDER, AND BILIARY TREE: The liver is normal in size, shape, and attenuation. No focal hepatic lesion or biliary ductal dilatation is present. Cholecystectomy. PANCREAS: No focal pancreatic masses are seen. Focal calcification at the pancreatic body is unchanged and likely related to the splenic artery. SPLEEN: Unremarkable. ADRENAL GLANDS: Stable left adrenal nodule measuring -11 Hounsfield units consistent with an adrenal adenoma. The right adrenal gland is unremarkable. KIDNEYS AND URETERS: Stable hyperdense lesion exophytic off the upper pole the left kidney measuring 1.3 cm, previously 1.4 cm. Stable 0.5 cm hypodensity exophytic off the upper pole of the right kidney. Both of these most likely represent hyperdense cysts and the stability over time is reassuring. Limited assessment of the kidneys without IV contrast. No definite masses are seen. Stable mild perinephric stranding bilaterally. No radiopaque calculi seen. No hydronephrosis. Ureters are normal in course and caliber bilaterally. BLADDER: Unremarkable. GASTROINTESTINAL TRACT: The small and large bowel are unremarkable. The appendix is unremarkable. ABDOMINAL WALL: Abdominal wall laxity. No significant abdominal wall hernia. Subcutaneous loculations of gas within the anterior abdominal wall fat consistent with injection site. LYMPH NODES: No lymphadenopathy within the abdomen or pelvis by CT criteria. VASCULAR: Atherosclerosis abdominal aorta without evidence of aneurysm. The IVC is singular and right-sided. PELVIC VISCERA: Unremarkable. OSSEOUS STRUCTURES: Degenerative changes. No acute or suspicious osseous abnormality. CT/CT abdomen pelvis wo con IMPRESSION: No evidence of acute abnormality within the abdomen or pelvis. Multiple chronic and nonacute findings as above.
--- NOTE | ~2020-08-15 | XR_ITS ---
EXAMINATION: XR CHEST CLINICAL INFORMATION: Weakness, hypotension. Assess for pneumonia COMPARISON: Chest radiographs 01/16/2020, 01/14/2020 TECHNIQUE: Portable upright AP view of the chest was obtained. FINDINGS: Patient is slightly rotated. The lungs are clear with no airspace consolidation or definite groundglass opacity. The heart is normal in size. The vascularity is normal. No effusion. No acute bony abnormality. XR/XR chest 1V IMPRESSION: Unremarkable examination.
--- NOTE | 2020-08-15 11:34 | ED_ITS ---
HPI - Weakness General Chief complaint: Weakness Stated complaint: WEAKNESS W/NAUSEA Time Seen by Provider: 08/15/20 11:18 Source: patient Mode of arrival: EMS Limitations: no limitations History of Present Illness HPI Narrative: 64-year-old female who presents emergency department for evaluation of nausea and weakness. The patient states she has chronic nausea however the symptom is gotten worse over the past 3 days. She states that she has not been able to eat and only able to drink small amounts of fluid. She states she is feeling weak. She denies lightheadedness or dizziness. She denies headache or weakness. She did have several episodes of diarrhea this morning but did not notice any dark tarry stools or blood in her stool. She denied fever, chills, chest pain. She states she has COPD and she is always short of breath. Related Data Home Medications Medication Instructions Recorded Confirmed Cosentyx Pen (2 Pens) 2 syringe SUBCUT Q4W 01/16/20 06/27/20 aspirin 81 mg PO DAILY 01/16/20 06/27/20 lisinopril 5 mg PO DAILY 01/16/20 06/27/20 metformin 500 mg PO BID 01/16/20 06/27/20 naproxen 375 mg PO DAILY 01/16/20 06/27/20 prednisone 7.5 mg PO DAILY 01/16/20 06/27/20 Lactobacillus acidophilus 100 mg PO DAILY 01/25/20 06/27/20 docusate sodium 100 mg capsule 100 mg PO DAILY 01/25/20 06/27/20 vitamin B complex-vitamin C-folic 1 tab PO DAILY 01/25/20 06/27/20 acid 0.8 mg tablet mirtazapine 7.5 mg tablet 15 mg PO BEDTIME tab 03/28/20 06/27/20 fluoxetine 20 mg capsule 20 mg PO BID 06/07/20 06/27/20 venlafaxine 100 mg tablet 100 mg PO BID 06/07/20 06/27/20 Previous Rx's Medication Instructions Recorded buspirone 15 mg tablet 15 mg PO BID 90 Days #180 tab 12/29/19 clonidine HCl 0.1 mg tablet 0.1 mg PO TID PRN #90 tab 01/01/20 methenamine hippurate 1 gram tablet 1 g PO BID #60 tab 03/20/20 atorvastatin 40 mg tablet 40 mg PO BEDTIME 90 Days #90 tab 03/28/20 fenofibrate 54 mg tablet 54 mg PO DAILY 90 Days #90 tab 03/28/20 pantoprazole 40 mg tablet,delayed 40 mg PO DAILY 90 Days #90 tab 06/13/20 release levothyroxine 175 mcg tablet 175 mcg PO DAILY 90 Days #90 tab 06/27/20 umeclidinium 62.5 mcg/actuation 1 inh INHALATION DAILY 90 Days #90 06/27/20 blister powder for inhalation cap lorazepam 1 mg tablet 1 mg PO BID PRN 30 Days #60 tab 07/30/20 promethazine 25 mg tablet 25 mg PO TID PRN 30 Days #90 tab 07/30/20 albuterol sulfate 90 mcg/actuation 2 puff PO QID #8.5 g 08/04/20 aerosol inhaler gabapentin 300 mg capsule 300 mg PO TID #270 cap 08/06/20 Allergies Allergy/AdvReac Type Severity Reaction Status Date / Time codeine [Codeine] AdvReac Unknown VOMITING Verified 06/27/20 21:38 absorbable sutures Allergy Unknown Unknown Uncoded 06/27/20 21:38 Cat/Feline Product Allergy Unknown SWELLING,INFECTION Uncoded 06/27/20 21:38 Derivatives AT SITE WITH CAT GUT SUTURES dissolving stitches Allergy Unknown Unknown Uncoded 06/27/20 21:38 Review of Systems Review of Systems: Yes all other systems are reviewed and are negative REPLACED BY [facility] Past Medical History REPLACED BY [facility] Narrative: Social history: The patient lives alone. She smokes 2 packs of cigarettes per day times 52 years. She rarely drinks alcohol. She denies drug use. Medical History Acquired hypothyroidism Anxiety Asthma Cervical radiculopathy due to degenerative joint disease of spine COPD (chronic obstructive pulmonary disease) Depression Diabetes Diabetes mellitus Fibromyalgia GERD (gastroesophageal reflux disease) Graves' disease Hypertension Hypertriglyceridemia Hypothyroid Intermittent diarrhea Intractable nausea and vomiting Iron deficiency anemia Lipoprotein deficiencies Lumbar degenerative disc disease Mixed hyperlipidemia Nausea and vomiting Obesity (BMI 30-39.9) Polymyalgia rheumatica Psoriatic arthritis Smoker Surgical History History of left breast biopsy History of thyroid surgery History of thyroidectomy History of tonsillectomy and adenoidectomy Hx of cholecystectomy Family History Family History Father Cancer Emphysema of lung Heart disease Social History Social History Household Members: None Housing: House Do you presently have visiting nurse or other home services: No Alcohol intake: never Patient Tobacco Use Status: Current everyday Tobacco user Cigarette Packs Per Day: 2 Cigarettes Per Day: 40.0 Years Smoked: 40 Use of substances other than those prescribed or required for medical reasons: No Advance Directives: Yes Advance Directives on File: Yes Advance Directives Date on File: 07/31/20 service: No Current occupational status: retired Physical Exam Vital Signs: Vital Signs: Last Vital Signs Temp 97.8 F 08/15/20 14:56 Pulse 71 08/15/20 16:12 Resp 18 08/15/20 16:12 BP 98/49 L 08/15/20 16:12 Pulse Ox 98 08/15/20 16:12 Body Mass Index 32.3 Const: General: cooperative Orientation/consciousness: oriented to person and oriented to place Limitations: no limitations HENMT: Head: Yes normal to inspection, Yes normocephalic and Yes atraumatic Ears: external ears normal General nose exam: Normal external nose present Face and sinus: Yes normal facial exam Mouth: Normal oral and palatal mucosa present Throat: Yes posterior oropharynx normal Eyes: Periorbital: periorbital findings normal Eyelids: Yes eyelids normal Conjunctivae: conjunctivae normal Sclerae: sclerae normal Corneas: corneas normal Pupils: Equal, round and reactive pupils present Direct Ophthalmoscopy: normal light reflex Neck: Neck: Yes full ROM, Yes no lymphadenopathy, Yes no meningeal signs, Yes trachea midline and Yes supple Chest: Chest palpation & inspection: normal inspection of the chest and normal palpation of entire chest wall Resp: Effort & Inspection: normal respiratory effort and able to speak in complete sentences Auscultation: clear to auscultation bilaterally Cardio: Rate: regular rate Rhythm: regular rhythm Heart sounds: S1 normal heart sound present, S2 normal heart sound present and no murmurs GI: Inspection: Yes normal to inspection Palpation (GI): Soft to palpation, nontender, no guarding, not rigid and No hepatosplenomegaly present : General: Yes no CVA tenderness Back/Spine/Pelvis: Back: no CVA tenderness Cervical Spine: normal cervical lordosis Thoracic/Lumbar Spine: thoracic and lumbar spine normal to inspection Skin: Lesions: no lesions Rashes: no rashes Wounds: no wounds Neuro: General: oriented to person, oriented to place and no meningeal signs Cranial nerves: Yes CN's II-XII intact bilaterally and Yes Equal, round and reactive pupils present Cognition (Neuro): normal cognition Motor exam (neuro): 5/5 motor strength present throughout Extrem: General: Yes normal to inspection and Yes full ROM Psych: Appearance: well kempt Mental Status: mental status grossly normal Speech and movement: Normal speech and movement present Affect: normal affect Attitude: cooperative Thought process: Normal thought process present Thought content: Normal thought content present Course Course Course Narrative: 64-year-old female who presents emergency department for evaluation of nausea with poor food and fluid intake x3 days and weakness. The patient's initial vital signs revealed that she was hypotensive systolic blood pressure as low as 75 and hypertension with a pulse of 103. Her other vital signs were unremarkable. The patient did meet SIRS criteria however at this time I do not suspect that she has an infection given her presentation. I did order a septic workup and a 30 cc/kilogram normal saline IV bolus. 1322: The patient has received her normal saline bolus but remains hypotensive. Laboratory evaluation [place] [address], elevated BUN of 21 with an elevated creatinine of 3.14. Lactic acid was elevated at 2.4. Urinalysis was negative and chest x-ray was negative. At this time, the patient meets SIRS criteria but does not have a source for infection. The patient does take prednisone 7.5 mg daily for her psoriatic arthritis and polymyalgia rheumatica. I ordered hydrochlorothiazide 100 mg IV to see if this improves her hypotension. I will discuss the patient's presentation with the covering canine deputy. 1417: Patient was seen by our canine deputy, Dr. Wilson. He evaluated the patient and felt that the patient's hypotension was secondary to severe dehydration and not sepsis. He recommended that the patient received 2 more L normal saline IV and then repeating the patient's CBC and CMP. Patient states 1 Percocet 3 times a day therefore she was ordered to get Tylenol 975 mg orally and oxycodone 5 mg orally. 1706: The patient's blood pressures have improved with systolics in the 90-100 range. The patient's repeat laboratory evaluation did reveal delusional H&H of 12.9 and 39.7 suggesting that we have given her sufficient fluid. The patient's BUN and creatinine also improved 17 and 2.35. Patient's albumin was normal at 3.9. This time I suspect the patient is pre renal secondary to the poor food and fluid intake. I did discuss the patient's presentation with the covering hospitalist, and the patient will be admitted to the hospital service. MDM - Weakness Lab Data Result diagrams: 08/15/20 16:19 08/15/20 16:19 Labs: Lab Results 08/15/20 08/15/20 08/15/20 Range/Units 11:46 11:46 11:46 WBC 15.0 H (4.8-10.8) X10*3/uL RBC 4.55 (4.20-5.50) X10*6/uL Hgb 14.3 (12.0-16.0) g/dl Hct 43.0 (37-47) % MCV 94.5 (80-98) fL MCH 31.4 (27.0-33.0) pg MCHC 33.3 (31.0-35.0) g/dl RDW 13.0 (11.0-16.0) % Plt Count 349 D (160-400) X10*3/uL MPV 9.6 (9.4-12.3) fL Immature Gran % (Auto) 0.6 H (0.0-0.4) % Neut % (Auto) 75.2 H (45-73) % Lymph % (Auto) 15.1 L (20-40) % [place] % (Auto) 7.9 (2-11) % Eos % (Auto) 0.7 (0-4) % Baso % (Auto) 0.5 (0-2) % Lymph # (Auto) 2.3 (1.2-4.9) X10*3/uL [place] # (Auto) 1.2 (0.1-1.2) X10*3/uL Eos # (Auto) 0.1 (0.0-0.4) X10*3/uL Baso # (Auto) 0.1 (0.0-0.2) X10*3/uL Abs Immat Gran (auto) 0.09 H (0.00-0.03) X10*3/uL Absolute Neuts (auto) 11.3 H (2.0-8.3) X10*3/uL Absolute Nucleated RBC 0.000 (0.0-0.012) X10*3/uL Nucleated RBC % (auto) 0.0 (0.0-0.2) /100WBC PT 12.7 (10.8-13.0) SEC INR 1.1 (0.9-1.1) APTT 32.8 (24.1-38.0) SEC Sodium (135-145) mmol/L Potassium (3.3-5.1) mmol/L Chloride (96-108) mmol/L Carbon Dioxide (22-29) mmol/L Anion Gap (12-20) BUN (9-16) mg/dL Creatinine (0.5-1.4) mg/dL Estim Creat Clear Calc Estimated GFR Random Glucose (60-115) mg/dL Lactic Acid 2.4 H* (0.5-2.0) mmol/L Lactic Acid Fup @ 2Hr (0.5-2.0) mmol/L Calcium (8.4-10.2) mg/dL Total Bilirubin (0.0-1.0) mg/dL AST (5-31) U/L ALT (0-31) U/L Alkaline Phosphatase (39-117) U/L Total Protein (6.5-8.0) g/dL Albumin (3.5-5.0) g/dL 08/15/20 08/15/20 08/15/20 Range/Units 11:46 14:20 16:19 WBC 8.6 (4.8-10.8) X10*3/uL RBC 4.11 L (4.20-5.50) X10*6/uL Hgb 12.9 (12.0-16.0) g/dl Hct 39.7 (37-47) % MCV 96.6 (80-98) fL MCH 31.4 (27.0-33.0) pg MCHC 32.5 (31.0-35.0) g/dl RDW 12.9 (11.0-16.0) % Plt Count 218 D (160-400) X10*3/uL MPV 9.1 L (9.4-12.3) fL Immature Gran % (Auto) 0.5 H (0.0-0.4) % Neut % (Auto) 83.9 H (45-73) % Lymph % (Auto) 10.9 L (20-40) % [place] % (Auto) 3.7 (2-11) % Eos % (Auto) 0.5 (0-4) % Baso % (Auto) 0.5 (0-2) % Lymph # (Auto) 0.9 L (1.2-4.9) X10*3/uL [place] # (Auto) 0.3 (0.1-1.2) X10*3/uL Eos # (Auto) 0.0 (0.0-0.4) X10*3/uL Baso # (Auto) 0.0 (0.0-0.2) X10*3/uL Abs Immat Gran (auto) 0.04 H (0.00-0.03) X10*3/uL Absolute Neuts (auto) 7.2 (2.0-8.3) X10*3/uL Absolute Nucleated RBC 0.000 (0.0-0.012) X10*3/uL Nucleated RBC % (auto) 0.0 (0.0-0.2) /100WBC PT (10.8-13.0) SEC INR (0.9-1.1) APTT (24.1-38.0) SEC Sodium 131 L (135-145) mmol/L Potassium 3.6 (3.3-5.1) mmol/L Chloride 95 L (96-108) mmol/L Carbon Dioxide 22 (22-29) mmol/L Anion Gap 18 (12-20) BUN 21 H (9-16) mg/dL Creatinine 3.14 H (0.5-1.4) mg/dL Estim Creat Clear Calc 20.2 Estimated GFR 15 Random Glucose 98 (60-115) mg/dL Lactic Acid (0.5-2.0) mmol/L Lactic Acid Fup @ 2Hr 1.0 (0.5-2.0) mmol/L Calcium 9.3 (8.4-10.2) mg/dL Total Bilirubin 0.3 (0.0-1.0) mg/dL AST (5-31) U/L ALT (0-31) U/L Alkaline Phosphatase (39-117) U/L Total Protein (6.5-8.0) g/dL Albumin 4.2 (3.5-5.0) g/dL 08/15/20 Range/Units 16:19 WBC (4.8-10.8) X10*3/uL RBC (4.20-5.50) X10*6/uL Hgb (12.0-16.0) g/dl Hct (37-47) % MCV (80-98) fL MCH (27.0-33.0) pg MCHC (31.0-35.0) g/dl RDW (11.0-16.0) % Plt Count (160-400) X10*3/uL MPV (9.4-12.3) fL Immature Gran % (Auto) (0.0-0.4) % Neut % (Auto) (45-73) % Lymph % (Auto) (20-40) % [place] % (Auto) (2-11) % Eos % (Auto) (0-4) % Baso % (Auto) (0-2) % Lymph # (Auto) (1.2-4.9) X10*3/uL [place] # (Auto) (0.1-1.2) X10*3/uL Eos # (Auto) (0.0-0.4) X10*3/uL Baso # (Auto) (0.0-0.2) X10*3/uL Abs Immat Gran (auto) (0.00-0.03) X10*3/uL Absolute Neuts (auto) (2.0-8.3) X10*3/uL Absolute Nucleated RBC (0.0-0.012) X10*3/uL Nucleated RBC % (auto) (0.0-0.2) /100WBC PT (10.8-13.0) SEC INR (0.9-1.1) APTT (24.1-38.0) SEC Sodium 136 (135-145) mmol/L Potassium 3.3 (3.3-5.1) mmol/L Chloride 104 (96-108) mmol/L Carbon Dioxide 22 (22-29) mmol/L Anion Gap 13 (12-20) BUN 17 H (9-16) mg/dL Creatinine 2.35 H (0.5-1.4) mg/dL Estim Creat Clear Calc 27.0 Estimated GFR 21 Random Glucose 108 (60-115) mg/dL Lactic Acid (0.5-2.0) mmol/L Lactic Acid Fup @ 2Hr (0.5-2.0) mmol/L Calcium 8.0 L D (8.4-10.2) mg/dL Total Bilirubin 0.3 (0.0-1.0) mg/dL AST 15 (5-31) U/L ALT 7 (0-31) U/L Alkaline Phosphatase 67 D (39-117) U/L Total Protein 5.8 L (6.5-8.0) g/dL Albumin 3.9 (3.5-5.0) g/dL Critical Care Time Critical Care Time Critical Care Time: Yes Total Critical Care Time: 55 Attestation: Critical Care: The patient was critically ill with a high probability of imminent or life threatening deterioration. I spent greater than 30 minutes of discontinuous time evaluating the patient,delivering critical care at the bedside, discussing and evaluating pertinent data with consultants. Critical care time does not include time spent performing separately billable procedures or teaching. Total time spent performing critical care was 55 minutes. Discharge Plan Discharge Clinical Impression: Acute hypotension, Acute kidney injury, Fluid volume depletion, Nausea Patient Disposition: Admitted As Inpatient
--- NOTE | 2020-08-15 11:46 | PC.NURSE ---
Pt alert+ oriented x4, neuros intact, bp 66/37 on arrival, rechecked 75/45, Dr Eron MD was noitfied, Labs and fluids ordered. Fluids hung bp trending up. Pt reports weakness, nausea no vomiting, and has not eaten x4 days. Sm sips of pedialyte during the day yesterday. Pt passed swallow study. Pt resting quietly, no apparent distress.
[2020-08-15 11:55] LABS: MANUAL DIFF FLAG NO
[2020-08-15 11:58] LABS: Basophils Absolute Auto 0.1 X10*3/uL (0.0-0.2); Basophils Percent Auto 0.5 % (0-2); Eosinophils Absolute Auto 0.1 X10*3/uL (0.0-0.4); Eosinophils Percent Auto 0.7 % (0-4); Hemoglobin 14.3 g/dl (12.0-16.0); Imm Gran Abs Auto 0.09 X10*3/uL (0.00-0.03); Imm Gran Pct Auto 0.6 % (0.0-0.4); Lymphocytes Absolute Auto 2.3 X10*3/uL (1.2-4.9); Lymphocytes Percent Auto 15.1 % (20-40); Mean Corpuscular HGB Conc 33.3 g/dl (31.0-35.0); Mean Corpuscular Hemoglobin 31.4 pg (27.0-33.0); Mean Corpuscular Volume 94.5 fL (80-98); Mean Platelet Volume 9.6 fL (9.4-12.3); Monocytes Absolute Auto 1.2 X10*3/uL (0.1-1.2); Monocytes Percent Auto 7.9 % (2-11); Neutrophils Absolute Auto 11.3 X10*3/uL (2.0-8.3); Neutrophils Percent Auto 75.2 % (45-73); Platelet Count 349 X10*3/uL (160-400); Red Blood Count 4.55 X10*6/uL (4.20-5.50)
[2020-08-15] MEDS: 0.9 % Sodium Chloride 2,721.54 ML 2721.54 ML IVCONT (11:58)
[2020-08-15 12:04] LABS: INTERNATIONAL NORM RATIO 1.1 (0.9-1.1); Prothrombin Time 12.7 SEC (10.8-13.0)
[2020-08-15 12:06] LABS: Partial Thromboplastin Time 32.8 SEC (24.1-38.0)
[2020-08-15 12:19] LABS: Lactic Acid 2.4 mmol/L (0.5-2.0)
[2020-08-15 12:20] LABS: Anion Gap 18 (12-20); Bilirubin Total 0.3 mg/dL (0.0-1.0); Blood Urea Nitrogen 21 mg/dL (9-16); Calcium 9.3 mg/dL (8.4-10.2); Carbon Dioxide 22 mmol/L (22-29); Chloride 95 mmol/L (96-108); Creatinine Clr Calc Pharmacy 20.2; Estimated Glomerular Filt Rate 15; Glucose Random 98 mg/dL (60-115); Potassium 3.6 mmol/L (3.3-5.1); Sodium 131 mmol/L (135-145)
--- NOTE | 2020-08-15 12:30 | PC.NURSE ---
Pt alert, oriented to self.
--- NOTE | 2020-08-15 13:05 | PC.NURSE ---
Pt with trending up BP but now noted back down to 70s systolically. Pt verbally reports feeling better at this time than on arrival. Denies increased SOB or dizziness. NSR on tele rate 80s. last 500ml of fluids infusing at this time. SKin is mildy pale, warm and dry.
--- NOTE | 2020-08-15 13:11 | PC.NURSE ---
Dr Littlejohn notified of low map (and BP) Pt placed on 2lpm via nc, sat on room air 93-95%, pt does reports smokes two packs/daily.
[2020-08-15] MEDS: Hydrocortisone Sod Succ/PF 100 MG VIAL IVPUSH (13:33)
[2020-08-15 13:45] LABS: Albumin Level 4.2 g/dL (3.5-5.0)
[2020-08-15 13:52] LABS: Reflex Lactate? Lactic Acid Added
--- NOTE | 2020-08-15 14:10 | PC.NURSE ---
Dr. Wilson from ICU at bedside. B/P 83/53 Pt resting quietly. No apparent distress
[2020-08-15] MEDS: 0.9 % Sodium Chloride 1,000 ML 999 ML IV ×2 (14:25→15:08)
[2020-08-15] MEDS: oxyCODONE HCl Immed Release 5 MG TABLET PO ×2 (15:02→22:20)
[2020-08-15] MEDS: Acetaminophen 325 MG TABLET 975 MG PO (15:02)
[2020-08-15 16:24] LABS: MANUAL DIFF FLAG NO
[2020-08-15 16:25] LABS: Basophils Percent Auto 0.5 % (0-2); Eosinophils Percent Auto 0.5 % (0-4); Hematocrit 39.7 % (37-47); Hemoglobin 12.9 g/dl (12.0-16.0); Imm Gran Abs Auto 0.04 X10*3/uL (0.00-0.03); Imm Gran Pct Auto 0.5 % (0.0-0.4); Lymphocytes Absolute Auto 0.9 X10*3/uL (1.2-4.9); Lymphocytes Percent Auto 10.9 % (20-40); Mean Corpuscular HGB Conc 32.5 g/dl (31.0-35.0); Mean Corpuscular Hemoglobin 31.4 pg (27.0-33.0); Mean Corpuscular Volume 96.6 fL (80-98); Mean Platelet Volume 9.1 fL (9.4-12.3); Monocytes Absolute Auto 0.3 X10*3/uL (0.1-1.2); Monocytes Percent Auto 3.7 % (2-11); Neutrophils Absolute Auto 7.2 X10*3/uL (2.0-8.3); Neutrophils Percent Auto 83.9 % (45-73); Platelet Count 218 X10*3/uL (160-400); Red Blood Count 4.11 X10*6/uL (4.20-5.50); Red Cell Distribution Width 12.9 % (11.0-16.0); White Blood Count 8.6 X10*3/uL (4.8-10.8)
[2020-08-15 16:50] LABS: Alanine Aminotransferase 7 U/L (0-31); Albumin Level 3.9 g/dL (3.5-5.0); Alkaline Phosphatase 67 U/L (39-117); Anion Gap 13 (12-20); Aspartate Amino Transferase 15 U/L (5-31); Bilirubin Total 0.3 mg/dL (0.0-1.0); Blood Urea Nitrogen 17 mg/dL (9-16); Carbon Dioxide 22 mmol/L (22-29); Chloride 104 mmol/L (96-108); Estimated Glomerular Filt Rate 21; Glucose Random 108 mg/dL (60-115); Potassium 3.3 mmol/L (3.3-5.1); Sodium 136 mmol/L (135-145); Total Protein 5.8 g/dL (6.5-8.0)
--- NOTE | 2020-08-15 19:06 | PHA.MEDREC ---
Pharmacy Consult ? Medication Reconciliation Pharmacy has completed the medication reconciliation.
[2020-08-15] MEDS: 0.9 % Sodium Chloride 1,000 ML 80 ML IVCONT (19:30)
--- NOTE | 2020-08-15 19:33 | PC.NURSE ---
PT AWAITING FOR ROOM ASSIGNMENT. PT RESTING IN STRETCHER IN NAD. PT ON MONITOR WITH HR. 79. WILL CONTINUE TO MONITOR PT.
[2020-08-15] MEDS: Albuterol Sulfate 90 MCG 8 GM INHALER 2 PUFF INHALE (21:39)
--- NOTE | 2020-08-15 21:46 | PC.NURSE ---
pt awaiting for room assignment. Hospitalist aware of pt's pain and requesting Nicotine patch. Will continue to monitor pt.
--- NOTE | 2020-08-15 21:57 | HP_ITS ---
DATE OF SERVICE: 08/15/2020 CHIEF COMPLAINT: Intractable nausea and weakness. HISTORY OF PRESENTING ILLNESS: This is a 64-year-old female patient with multiple medical issues including history of diabetes, fibromyalgia, COPD, depression, history of hypertension, Graves disease, history of polymyalgia rheumatica, psoriatic arthritis, also history of recent hospitalization to [facility] in January of 2020 with hypercalcemia, presented to [facility] due to ongoing nausea for last several months for which she is being followed by Dr. Melgar and recently underwent upper endoscopy in July of 2020 that showed a small hiatal hernia and GERD. The patient was supposed to have an imaging study done on October 01, but since for the last 4 to 5 days, the patient was having worsening nausea with inability to keep food down with weight loss and weakness, so she decided to come to the emergency room. She has been only drinking milk shakes. She also complains of associated lightheadedness. Denies headache. No fever, no chills. She denies abdominal pain. She did complain of a couple episodes of loose stools this morning. In the emergency room, workup revealed the creatinine of 3.1 with a BUN of 21, sodium low at 131, lactic acid was elevated at 2.4. LFTs were unremarkable. CBC showed an elevated WBC count of 15,000. Chest x-ray showed no acute infiltrate. Urinalysis was negative. However, patient was noted to be hypotensive, initial blood pressure was 90/51, that went down to 74/41. The patient was aggressively treated with IV fluid 30 mL/h. There was no source of infection found. It was felt that the lactic acidosis is secondary to hypotension. After aggressive IV hydration, repeat labs were obtained that showed improvement in creatinine and normalization of WBC count. The patient's blood pressure improved to 99/50. The patient was evaluated by Dr. Wilson in the emergency room due to significant hypotension. He recommended IV hydration and felt the patient's symptoms are due to dehydration. Since the patient is also on prednisone due to polymyalgia rheumatica, there was concern for adrenal insufficiency and the patient was treated with IV hydrocortisone. At the present time, the patient appears hemodynamically stable, in no acute distress. PAST MEDICAL HISTORY: Significant for, 1. Polymyalgia rheumatica. 2. History of psoriatic arthritis. 3. History of obesity. 4. History of acquired hypothyroidism. 5. History of anxiety. 6. History of asthma. 7. History of COPD. 8. History of depression. 9. History of diabetes mellitus. 10. History of GERD. 11. History of Graves disease. 12. History of hypertension. 13. History of hypertriglyceridemia. 14. History of iron deficiency anemia. 15. History of lumbar degenerative disease. PAST SURGICAL HISTORY: 1. She is status post left breast biopsy. 2. Status post thyroid surgery. 3. Status post tonsillectomy and adenoidectomy. 4. History of cholecystectomy. FAMILY HISTORY: Father is , had emphysema of lung and heart disease. SOCIAL HISTORY: The patient smokes 2 pack of cigarettes a day. She lives alone. Ambulates with the help of a cane. She socially drinks alcohol. ALLERGIES: SHE IS ALLERGIC TO CODEINE THAT CAUSES VOMITING. PRODUCT CAUSES SWELLING, INFECTION AT SITE WITH CATGUT SUTURE. MEDICATIONS: On admission are albuterol sulfate 2 puffs q.i.d., Colace 100 mg daily, lactobacillus 100 daily. Lorazepam 1 mg by mouth b.i.d. as needed. Mirtazapine 15 mg at bedtime. Oxycodone 1 tablet t.i.d. as needed for pain. Promethazine 25 mg t.i.d. for nausea and vomiting. Cosentyx subcutaneously q.4 weekly. Hydrochlorothiazide/triamterene 1 capsule daily. Venlafaxine 100 mg b.i.d., aspirin 81 mg daily, Lipitor 40 mg at bedtime. Buspirone 15 mg b.i.d., fenofibrate 54 mg daily, gabapentin 300 t.i.d., levothyroxine 175 mcg daily, lisinopril 5 mg daily, metformin 500 mg b.i.d., Protonix 40 mg daily, prednisone 7.5 mg daily, Incruse Ellipta 1 inhaler daily. 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 No dizziness. No headache. CVS: Denies any chest pain or palpitation. RESPIRATORY: She complains of chronic cough with clear phlegm. No shortness of breath. GENERAL: She denies any fever or chills. She admits to 20-pound weight loss in the last month. : No urinary symptoms of urgency or frequency. Rest of all other systems are reviewed and are negative. PHYSICAL EXAMINATION: GENERAL: The patient is resting comfortably, does not appear to be in acute distress. VITALS: BP 99/50, pulse of 75, respiratory rate 15, O2 saturation 97 on room air. HEENT: Pupils equal, round, and reactive to light and accommodation. NECK: Supple. No JVD. LUNGS: Clear to auscultation bilaterally. HEART: Regular rate and rhythm. ABDOMEN: Obese, soft, nontender. EXTREMITIES: Dry scaly skin. No peripheral edema. NEUROLOGIC: Nonfocal. Speech clear. IMAGING STUDIES: Chest x-ray showed no acute infiltrate. WBC initially 15,000, improved to 8.6; hemoglobin 12.9; hematocrit 39.7; and a platelet count of 218. Chem profile, sodium 136, potassium 3.3, bicarb 22, BUN 17 with creatinine improving from 3.1 to 2.35. Blood sugar is 108. Lactic acid 2.4, repeat lactic acid normalized to 1. Calcium of 8, normal LFTs, total protein 5.8. TSH in June was 23.84. ASSESSMENT AND PLAN: 64-year-old female with multiple medical issues including psoriatic arthritis on prednisone 7.5 mg daily, fibromyalgia, chronic obstructive pulmonary disease, active smoker, presented to [facility] with ongoing nausea of last several months, being followed by Gastroenterology, status post upper endoscopy that did not show any cause for nausea. Patient also status post CT abdomen and pelvis last year that did not show any pathology. The patient is being admitted for continued monitoring and treatment. Problem list: 1. Hypotension secondary to severe dehydration. The patient has been aggressively treated with IV fluid 30 mL/kg with good response. Current blood pressure is stable. There is also concern for adrenal insufficiency due to chronic use of steroids. Therefore, patient will be placed on hydrocortisone 40 mg t.i.d., that will be weaned in the next 48 hours. We will hold off on antihypertensive medications. Follow clinical course closely. Likely symptoms due to continued use of antihypertensive medications with decreased by-mouth intake. 2. Acute kidney injury. Likely due to dehydration. Renal function is improving with IV fluids. We will hold lisinopril, metformin, and nephrotoxins. Continue IV fluids and repeat BMP at a.m. 3. Intractable nausea ongoing for several months associated with decreased by-mouth intake with negative workup in the recent past. The patient wishes her imaging studies that were recommended by Dr. Melgar to be done while she is in hospital due to persistent nausea. The patient is on multiple medications that can likely be contributing to nausea including gabapentin, Buspar, venlafaxine, and narcotic medications. Discussed with pharmacy regarding all her medications. It seems that venlafaxine was not recently filled, but as per the patient, she has been taking the medication. Lipitor can also contribute to nausea. Requested the patient to follow up with PCP to adjust her home medications. We will treat her with IV Zofran. Obtain GI consultation. 4. Diabetes mellitus. We will hold metformin due to renal disease. We will place the patient on diabetic diet and insulin sliding scale. 5. History of hyperlipidemia. We will check lipid profile and resume Lipitor if noted to have elevated LDL. 6. History of hypertension. We will hold all antihypertensive medications including hydrochlorothiazide and lisinopril. Follow BP closely. 7. Code status, DNR. 8. Deep vein thrombosis prophylaxis. Place on Lovenox. 9. History of chronic obstructive pulmonary disease. No acute exacerbation. Continue home inhalers. 10. History of depression. The patient is on mirtazapine, lorazepam, venlafaxine, buspirone. Need psych medications to be adjusted. 11. Hypothyroidism. Patient noted to have elevated TSH 2 months ago. We will repeat TSH. Continue levothyroxine 175 mcg daily. MD JOSE MANUEL Herring/RADHA / [id number]
[2020-08-15 22:04] LABS: COVID-19 Test Negative (Negative); IDNOW Serial# 9DD0AD1C
[2020-08-15 22:08] LABS: Glucose, Whole Blood 115 mg/dL (60-115)
[2020-08-15] MEDS: Enoxaparin Sodium 40 MG/0.4 ML SYRINGE SUBCUT (22:19)
[2020-08-15] MEDS: LORazepam 1 MG TABLET PO (22:20)
[2020-08-15] MEDS: Mirtazapine 15 MG TABLET PO (22:21)
[2020-08-15] MEDS: busPIRone HCl 5 MG TABLET 15 MG PO (22:22)
--- NOTE | 2020-08-15 22:39 | PC.NURSE ---
report given to KAMERON Rodriguez. Pt medicated as per emar.
[2020-08-16] VITALS (7 sets, daily range): BP systolic 96–125; BP diastolic 52–60; PULSE 66–88; RESP 16–20; TEMP 36.4–36.9; O2SAT 92–95
[2020-08-16] MEDS: 0.9 % Sodium Chloride 1,000 ML 80 ML IVCONT ×2 (00:03→12:30)
[2020-08-16] MEDS: Levothyroxine Sodium 175 MCG TABLET PO (05:06)
[2020-08-16] MEDS: oxyCODONE HCl Immed Release 5 MG TABLET PO ×3 (05:06→18:34)
[2020-08-16 06:40] LABS: MANUAL DIFF FLAG NO
[2020-08-16 06:59] LABS: Basophils Percent Auto 0.4 % (0-2); Eosinophils Absolute Auto 0.1 X10*3/uL (0.0-0.4); Eosinophils Percent Auto 1.4 % (0-4); Hematocrit 35.1 % (37-47); Hemoglobin 11.2 g/dl (12.0-16.0); Imm Gran Abs Auto 0.02 X10*3/uL (0.00-0.03); Imm Gran Pct Auto 0.3 % (0.0-0.4); Lymphocytes Absolute Auto 2.2 X10*3/uL (1.2-4.9); Lymphocytes Percent Auto 29.9 % (20-40); Mean Corpuscular HGB Conc 31.9 g/dl (31.0-35.0); Mean Corpuscular Hemoglobin 31.2 pg (27.0-33.0); Mean Corpuscular Volume 97.8 fL (80-98); Mean Platelet Volume 9.7 fL (9.4-12.3); Monocytes Absolute Auto 0.6 X10*3/uL (0.1-1.2); Monocytes Percent Auto 7.8 % (2-11); Neutrophils Absolute Auto 4.3 X10*3/uL (2.0-8.3); Neutrophils Percent Auto 60.2 % (45-73); Platelet Count 211 X10*3/uL (160-400); Red Blood Count 3.59 X10*6/uL (4.20-5.50); White Blood Count 7.2 X10*3/uL (4.8-10.8)
[2020-08-16 07:19] LABS: Glucose, Whole Blood 106 mg/dL (60-115)
[2020-08-16 07:32] LABS: Anion Gap 11 (12-20); Blood Urea Nitrogen 18 mg/dL (9-16); Calcium 8.1 mg/dL (8.4-10.2); Carbon Dioxide 27 mmol/L (22-29); Chloride 105 mmol/L (96-108); Creatinine Clr Calc Pharmacy 37.1; Estimated Glomerular Filt Rate 30; Glucose Random 113 mg/dL (60-115); Potassium 4.4 mmol/L (3.3-5.1); Sodium 139 mmol/L (135-145); Thyroid Stimulating Hormone 0.06 uIU/mL (0.32-4.0)
[2020-08-16] MEDS: Docusate Sodium 100 MG CAPSULE PO (07:42)
[2020-08-16] MEDS: Nicotine 21 MG PATCH.TD24 TRANSDERMA (07:42)
[2020-08-16] MEDS: Gabapentin 300 MG CAPSULE PO ×2 (07:42→20:57)
[2020-08-16] MEDS: busPIRone HCl 5 MG TABLET 15 MG PO ×2 (07:42→20:57)
[2020-08-16] MEDS: Aspirin Enteric Coated 81 MG TABLET.DR PO (07:42)
[2020-08-16] MEDS: 0.9 % Sodium Chloride Flush 3 ML SYRINGE IVFLUSH ×2 (07:48→21:03)
--- NOTE | 2020-08-16 08:28 | MHC.CM.PN ---
CM met with Patient at bedside and addressed IMM with her, providing her with the original and placing a copy on the chart. Patient lives alone in a house and she uses a cane to assist with mobility. Patient's goal is to return home/no services and CM has initiated and will follow for dc planning. PCP is Georgia Villavicencio and HCP is on file.
[2020-08-16] MEDS: ondansetron HCL 4 MG/2 ML VIAL IVPUSH (08:32)
[2020-08-16] MEDS: LORazepam 1 MG TABLET PO ×2 (10:49→18:36)
[2020-08-16] MEDS: Prochlorperazine Edisylate 10 MG/2 ML VIAL 5 MG IVPUSH (11:41)
[2020-08-16 12:53] LABS: Glucose, Whole Blood 132 mg/dL (60-115)
[2020-08-16] MEDS: hydrOXYzine HCL 25 MG TABLET PO ×2 (13:35→20:58)
--- NOTE | 2020-08-16 14:21 | P.PNIM_ITS ---
Subjective Subjective Date of Service: 08/16/20 Interval History: pt seen and examined at beside. Continues to have nausea specially after eating breakfast this morning. She denies any abdominal pain, no diarrhea or constipation. No vomiting. No urinary symptoms. No chest pain. Physical Exam Vital Signs: Vital Signs: Last Vital Signs Temp 97.7 F 08/16/20 12:00 Pulse 86 08/16/20 12:00 Resp 18 08/16/20 12:00 BP 117/59 L 08/16/20 12:00 Pulse Ox 95 08/16/20 12:00 Body Mass Index 32.3 Const: General: cooperative and no acute distress Resp: Effort & Inspection: normal respiratory effort and able to speak in complete sentences Cardio: Rate: regular rate Rhythm: regular rhythm GI: Palpation (GI): Soft to palpation Auscultation: normal bowel sounds Extrem: General: Yes normal to inspection and Yes no pedal edema Psych: Other: Anxious Objective Data Current Medications Generic Name Dose Route Start Last Admin Trade Name Freq PRN Reason Stop Dose Admin Acetaminophen 650 mg 08/15/20 18:20 Acetaminophen 325 Mg Tablet PO Q6H PRN Pain, Mild (Pain Scale 1-3) Albuterol Sulfate 2 puff 08/16/20 16:00 Albuterol Sulfate 90 Mcg 8 Gm Inhaler INHALE RQID CHRISTI Aspirin 81 mg 08/16/20 09:00 08/16/20 07:42 Aspirin Enteric Coated 81 Mg Tablet.Dr PO 81 mg DAILY CHRISTI Administration Buspirone HCl 15 mg 08/15/20 21:00 08/16/20 07:42 Buspirone Hcl 5 Mg Tablet PO 15 mg BID CHRISTI Administration Docusate Sodium 100 mg 08/16/20 09:00 08/16/20 07:42 Docusate Sodium 100 Mg Capsule PO 100 mg DAILY CHRISTI Administration Enoxaparin Sodium 40 mg 08/15/20 19:00 08/15/20 22:19 Enoxaparin Sodium 40 Mg/0.4 Ml Syringe SUBCUT 40 mg Q24H CHRISTI Administration Gabapentin 300 mg 08/16/20 09:00 08/16/20 07:42 Gabapentin 300 Mg Capsule PO 300 mg BID CHRISTI Administration Hydroxyzine HCl 25 mg 08/16/20 13:20 08/16/20 13:35 Hydroxyzine Hcl 25 Mg Tablet PO 25 mg Q8H PRN Administration Anxiety Sodium Chloride 1,000 mls @ 80 mls/hr 08/15/20 18:20 08/16/20 12:30 Ns IVCONT 80 mls/hr .[id number] [facility] Administration Insulin Human Lispro 0 unit 08/15/20 21:00 08/16/20 11:45 Insulin Lispro 100 Unit/Ml 3 Ml Vial SUBCUT Not Given QIDACHS [facility] Protocol Levothyroxine Sodium 175 mcg 08/16/20 06:00 08/16/20 05:06 Levothyroxine Sodium 175 Mcg Tablet PO 175 mcg DAILY@0600 [facility] Administration Lorazepam 1 mg 08/15/20 19:49 08/16/20 10:49 Lorazepam 1 Mg Tablet PO 1 mg BID PRN Administration anxiety Mirtazapine 15 mg 08/15/20 21:00 08/15/20 22:21 Mirtazapine 15 Mg Tablet PO 15 mg BEDTIME [facility] Administration Nicotine 21 mg 08/16/20 09:00 08/16/20 07:42 Nicotine 21 Mg Patch.Td24 TRANSDERMA 21 mg DAILY [facility] Administration Ondansetron HCl 4 mg 08/15/20 18:20 08/16/20 08:32 Ondansetron Hcl 4 Mg/2 Ml Vial IVPUSH 4 mg Q8H PRN Administration Nausea and Vomiting Ondansetron HCl 4 mg 08/16/20 14:15 Ondansetron Odt 4 Mg Tab.Rapdis TRANSLINGU Q8H [facility] Oxycodone HCl 5 mg 08/15/20 21:44 08/16/20 11:16 Oxycodone Hcl Immed Release 5 Mg Tablet PO 5 mg Q6H PRN Administration [facility] Consult 1 each 08/15/20 19:07 Consult Rx Perform Med Rec MISCELLANE ONCE PRN Consult order Sodium Chloride 3 ml 08/16/20 00:00 08/16/20 07:48 0.9 % Sodium Chloride Flush 3 Ml Syringe IVFLUSH 3 ml QSHIFT [facility] Administration Tiotropium [place] 1 puff 08/16/20 10:00 08/16/20 10:14 Tiotropium [place] 18 Mcg Cap.W.Dev INHALE Not Given RDAILY [facility] Labs CBC & Chem 7: 08/16/20 05:46 08/16/20 05:46 Microbiology Microbiology Results: Microbiology 08/15/20 11:47 Blood - Venous Blood Culture - Preliminary No growth after 24 hours. 08/15/20 11:46 Blood - Venous Blood Culture - Preliminary No growth after 24 hours. 08/15/20 15:18 Kidney - Clean Catch Midstream Urine Culture - Final Assessment and Plan (1) Nausea without vomiting: Status: Acute (2) Acute hypotension: Status: Acute (3) Acute kidney injury: Status: Acute (4) Fluid volume depletion: Status: Acute Assessment and Plan: This is a 64-year-old female who presents to the hospital on 08/15 with complaints of intractable nausea # intractable nausea - unclear etiology - gastroenterology following and recommended Zofran prior to each meal - symptomatic management at this time - will monitor her tolerance for oral intake # JENAE - most likely secondary to poor oral intake and hydration - baseline around 1.0-1.3 presented with a creatinine of 3.14 - improving with IV fluids- will continue - follow BMP - hold nephrotoxic medications # Hypotension - improving - most likely secondary to dehydration and not sepsis - continue to hold home medications of lisinopril - Less likely to be secondary to adrenal insufficiency, patient received 100 mg of of hydrocortisone in the ED. # diabetes - hold metformin in the setting of JENAE - low-dose sliding scale insulin - diabetic diet # Anxiety - pt having significant anxiety - will order hydroxyzine - if continues to have sig anxiety will consider consulting psych as pt well Known to Dr. Dennis # Hx of SD - on chronic prednisone 7.5 mg daily - received 100 mg of hydrocortisone on arrival to the ED - patient blood pressure normalized - will continue home prednisone Disposition: Will probably observe 1 more day given her JENAE as well as intolerance to p.o. intake. Possible discharge to home tomorrow DVT prophylaxis: Lovenox
[2020-08-16] MEDS: Albuterol Sulfate 90 MCG 8 GM INHALER 2 PUFF INHALE ×2 (14:47→19:22)
[2020-08-16] MEDS: predniSONE 2.5 MG TABLET 7.5 MG PO (15:41)
[2020-08-16] MEDS: Omeprazole 20 MG CAPSULE.DR PO (16:23)
[2020-08-16 16:27] LABS: Glucose, Whole Blood 146 mg/dL (60-115)
--- NOTE | 2020-08-16 16:43 | PM.EVENT ---
Event Note Date of Service: 08/16/20 Event Note: GI Consult-Full note dictated Imp: Chronic nausea with decreased po intake and weight loss. I first met her on 07/25/2020 in the office at which time she described approx. 6 months of persistent sx with > 20 # weight loss. She has had a neg CT of the chest/abd/pelvis in 01/2020, a negative Head CT, a negative EGD with biopsies on 07/31, and negative labs. She denies abdominal pains, significant diarrhea, bleeding, jaundice, vomiting, GERD/heartburn, dysphagia, nor fevers. She has had refractory sx to PPI's and different antiemetics. She does have underlying anxiety but does not think her nausea is from the anxiety. She would like to eat, but whenever she tries the nausea begins. She is scheduled for a nuclear med gastric emptying study for 09/2020, although I doubt her sx are from gastroparesis. Her abdominal exam is benign. Diff dx: I do not have a definitive explanation for her symptoms as yet. She has had a thorough workup which has been nonrevealing. I wonder if her sx might be related to one of her meds, judi. the pain meds and/or psych meds. Rec: Consider repeating her CT of head and abd/pelvis over the weekend. Have a review of her meds by pharmacy. In the meantime, I have ordered a standing dose of ODT Zofran before each meal and a QD dose of PPI to see if that might give her some relief. Observe her on her diet. If she is doing well she can be discharged and I will follow her up in the office to complete any needed workup. If she continues to have problems here over the weekend, I would recommend ordering the aforementioned CT's, and the nuclear medicine GES on Wednesday, 08/19. Thanks
[2020-08-16] MEDS: Enoxaparin Sodium 40 MG/0.4 ML SYRINGE SUBCUT (18:33)
[2020-08-16 18:35] LABS: Cholesterol 132 mg/dL; HDL Cholesterol 31 mg/dL; LDL Cholesterol Calculated 43 mg/dl; Triglycerides 293 mg/dL
[2020-08-16 20:34] LABS: Glucose, Whole Blood 157 mg/dL (60-115)
[2020-08-16] MEDS: Insulin Lispro 100 UNIT/ML 3 ML VIAL SUBCUT (20:57)
[2020-08-16] MEDS: Mirtazapine 15 MG TABLET PO (20:58)
[2020-08-16] MEDS: Acetaminophen 325 MG TABLET 650 MG PO (20:59)
[2020-08-16] MEDS: diphenhydrAMINE HCL 25 MG TABLET PO (22:06)
[2020-08-17] VITALS: BP 116/63; PULSE 79; RESP 18; TEMP 37.1; O2SAT 97
[2020-08-17] MEDS: oxyCODONE HCl Immed Release 5 MG TABLET PO ×3 (00:55→12:16)
[2020-08-17] MEDS: 0.9 % Sodium Chloride 1,000 ML 80 ML IVCONT (00:55)
[2020-08-17] MEDS: Melatonin 3 MG TABLET 6 MG PO (00:56)
[2020-08-17 03:32] VITALS: BP 113/55; PULSE 56; RESP 18; TEMP 36.9; O2SAT 94
[2020-08-17] MEDS: Omeprazole 20 MG CAPSULE.DR PO (06:16)
[2020-08-17] MEDS: Levothyroxine Sodium 175 MCG TABLET PO (06:16)
[2020-08-17 06:45] LABS: MANUAL DIFF FLAG NO
[2020-08-17 06:59] LABS: Basophils Percent Auto 0.6 % (0-2); Eosinophils Absolute Auto 0.2 X10*3/uL (0.0-0.4); Eosinophils Percent Auto 2.4 % (0-4); Hematocrit 35.4 % (37-47); Hemoglobin 11.3 g/dl (12.0-16.0); Imm Gran Abs Auto 0.03 X10*3/uL (0.00-0.03); Imm Gran Pct Auto 0.4 % (0.0-0.4); Lymphocytes Absolute Auto 2.1 X10*3/uL (1.2-4.9); Lymphocytes Percent Auto 31.8 % (20-40); Mean Corpuscular HGB Conc 31.9 g/dl (31.0-35.0); Mean Corpuscular Hemoglobin 31.2 pg (27.0-33.0); Mean Corpuscular Volume 97.8 fL (80-98); Mean Platelet Volume 9.8 fL (9.4-12.3); Monocytes Absolute Auto 0.5 X10*3/uL (0.1-1.2); Monocytes Percent Auto 7.4 % (2-11); Neutrophils Absolute Auto 3.9 X10*3/uL (2.0-8.3); Neutrophils Percent Auto 57.4 % (45-73); Platelet Count 209 X10*3/uL (160-400); Red Blood Count 3.62 X10*6/uL (4.20-5.50); Red Cell Distribution Width 12.8 % (11.0-16.0); White Blood Count 6.7 X10*3/uL (4.8-10.8)
[2020-08-17 07:08] LABS: Prothrombin Time 12.3 SEC (10.8-13.0)
[2020-08-17 07:23] LABS: Glucose, Whole Blood 105 mg/dL (60-115)
[2020-08-17 07:32] VITALS: BP 122/62; PULSE 71; RESP 20; TEMP 36.7; O2SAT 96
[2020-08-17 07:33] LABS: Iron 35 mcg/dL (30-160); Percent Iron Saturation 12 % (15-50); Total Iron Binding Capacity 284 mcg/dL (228-428); Unsaturated Iron Binding 249 ug/dL
[2020-08-17 07:42] LABS: Ferritin 26 ng/mL (10-250); TSH reflex Free T4 0.03 uIU/mL (0.32-4.0); Vitamin D 25-OH Total 28.7 ng/mL (>30)
[2020-08-17 07:44] LABS: Anion Gap 14 (12-20); Blood Urea Nitrogen 13 mg/dL (9-16); Carbon Dioxide 27 mmol/L (22-29); Chloride 104 mmol/L (96-108); Creatinine Clr Calc Pharmacy 56.3; Estimated Glomerular Filt Rate 48; Glucose Fasting 105 mg/dL (60-99); Potassium 4.6 mmol/L (3.3-5.1); Sodium 140 mmol/L (135-145)
[2020-08-17] MEDS: predniSONE 2.5 MG TABLET 7.5 MG PO (07:47)
[2020-08-17] MEDS: busPIRone HCl 5 MG TABLET 15 MG PO (07:47)
[2020-08-17] MEDS: Docusate Sodium 100 MG CAPSULE PO (07:48)
[2020-08-17] MEDS: Aspirin Enteric Coated 81 MG TABLET.DR PO (07:48)
[2020-08-17] MEDS: Nicotine 21 MG PATCH.TD24 TRANSDERMA (07:48)
[2020-08-17] MEDS: 0.9 % Sodium Chloride Flush 3 ML SYRINGE IVFLUSH (07:48)
[2020-08-17] MEDS: Gabapentin 300 MG CAPSULE PO (07:48)
[2020-08-17] MEDS: Albuterol Sulfate 90 MCG 8 GM INHALER 2 PUFF INHALE ×2 (08:03→11:55)
[2020-08-17 08:08] VITALS: PULSE 75; O2SAT 92
[2020-08-17 08:21] LABS: Free T4 (Free Thyroxine) 3.99 ng/dL (0.71-1.85)
--- NOTE | 2020-08-17 09:27 | MHC.CM.PN ---
PT CLEARED TO DC HOME TODAY WITH NO SERVICES
[2020-08-17] MEDS: LORazepam 1 MG TABLET PO (09:35)
[2020-08-17] MEDS: hydrOXYzine HCL 25 MG TABLET PO (10:29)
[2020-08-17 11:05] LABS: Glucose, Whole Blood 239 mg/dL (60-115)
--- NOTE | 2020-08-17 11:52 | P.DS_ITS ---
DS: Providers Provider Date of Service: 08/17/20 Date of admission: 08/15/20 18:20 Primary care physician: Mikey Villavicencio MD Consults: 08/15/20 18:20 Consult to Gastroenterology Routine Consulting Provider: Reggie Melgar Reason for consultation: nausea Has provider been notified: No DS: Diagnosis Discharge Diagnosis (1) Nausea without vomiting: Status: Acute (2) Acute hypotension: Status: Acute (3) Acute kidney injury: Status: Acute (4) Fluid volume depletion: Status: Acute DS: Medications Discharge Medications Home Medications: Home Medications Medication Instructions Recorded Confirmed Cosentyx Pen (2 Pens) 2 syringe SUBCUT Q4W 01/16/20 08/15/20 aspirin 81 mg PO DAILY 01/16/20 08/15/20 lisinopril 5 mg PO DAILY 01/16/20 08/15/20 metformin 500 mg PO BID 01/16/20 08/15/20 prednisone 7.5 mg PO DAILY 01/16/20 08/15/20 Lactobacillus acidophilus 100 mg PO DAILY 01/25/20 08/15/20 docusate sodium 100 mg capsule 100 mg PO DAILY 01/25/20 08/15/20 venlafaxine 100 mg tablet 100 mg PO BID 06/07/20 06/27/20 mirtazapine 15 mg PO BEDTIME 08/15/20 08/15/20 oxycodone-acetaminophen 1 tab PO TID PRN 08/15/20 08/15/20 triamterene-hydrochlorothiazid 1 cap PO DAILY 08/15/20 08/15/20 Previous Rx's Medication Instructions Recorded buspirone 15 mg tablet 15 mg PO BID 90 Days #180 tab 12/29/19 atorvastatin 40 mg tablet 40 mg PO BEDTIME 90 Days #90 tab 03/28/20 fenofibrate 54 mg tablet 54 mg PO DAILY 90 Days #90 tab 03/28/20 levothyroxine 175 mcg tablet 175 mcg PO DAILY 90 Days #90 tab 06/27/20 umeclidinium 62.5 mcg/actuation 1 inh INHALATION DAILY 90 Days #90 06/27/20 blister powder for inhalation cap lorazepam 1 mg tablet 1 mg PO BID PRN 30 Days #60 tab 07/30/20 albuterol sulfate 90 mcg/actuation 2 puff PO QID #8.5 g 08/04/20 aerosol inhaler gabapentin 300 mg capsule 300 mg PO TID #270 cap 08/06/20 ondansetron 4 mg TRANSLINGUAL TIDAC #45 tab 08/17/20 pantoprazole 40 mg PO DAILY 90 Days #90 tab 08/17/20 DS: Summary Hospital Course Hospital Course: This is a 64-year-old female patient with multiple medical issues including history of diabetes, fibromyalgia, COPD, depression, history of hypertension, Graves disease, history of polymyalgia rheumatica, psoriatic arthritis, also history of recent hospitalization to [facility] in January of 2020 with hypercalcemia, presented to [facility] due to ongoing nausea for last several months for which she is being followed by Dr. Melgar and recently underwent upper endoscopy in July of 2020 that showed a small hiatal hernia and GERD. The patient was supposed to have an imaging study done on October 01, but since for the last 4 to 5 days, the patient was having worsening nausea with inability to keep food down with weight loss and weakness, so she decided to come to the emergency room. No fever, no chills. She denies abdominal pain. In regards to her Nausea pt was evaluated by GI , who recommended obtaning an abdominal/pelvic CT which showed no acute abnormality to explain the nausea. Recommended to start zofran TIDAC and HS and follow up op. Pt also recommended to get head CT to r/o other etiologies for her nausea but given her JENAE, asked to have this test done OP. At this time she has complete resolution of her nausea A script for zofran sent to pharmacy While in the ED pt was noted to be hypotensive. Chest x-ray showed no acute infiltrate. Urinalysis was negative. initial blood pressure was 90/51, that went down to 74/41. The patient was aggressively treated with IV fluid 30 mL/h. There was no source of infection found. It was felt that the lactic acidosis is secondary to hypotension which was most likely 2/2 dehydration and fluid depletion. After aggressive IV hydration, repeat labs were obtained that showed improvement in creatinine and normalization of WBC count. The patient's blood pressure improved to 99/50. The patient was evaluated by Dr. Wilson in the emergency room due to significant hypotension.Since the patient is also on prednisone due to polymyalgia rheumatica, there was concern for adrenal insufficiency and the patient was treated with IV hydrocortisone 1 time dose. she has since been resumed on her home dose of prednisone with no recurrence of hypotension JENAE resolved which was felt to be secondary to dehydration and volume depletion Pt asked to follow up with PCP to rpt BMP in 1 wk to monitor kidney function Time Spent with Patient Time attestation: Total time spent providing and/or coordinating discharge services: Discharge coordination time: Greater than 30 minutes Quality: Stroke Does the patient have a stroke diagnosis?: No Physical Exam Vital Signs: Vital Signs: Last Vital Signs Temp 98.0 F 08/17/20 07:32 Pulse 71 08/17/20 07:32 Resp 20 08/17/20 07:32 BP 122/62 08/17/20 07:32 Pulse Ox 96 08/17/20 07:32 Body Mass Index 32.3 Const: General: cooperative and no acute distress Orientation/consciousness: patient oriented x3 Resp: Effort & Inspection: normal respiratory effort and able to speak in complete sentences Cardio: Rate: regular rate Rhythm: regular rhythm GI: Palpation (GI): Soft to palpation Auscultation: normal bowel sounds Skin: General skin exam: no rashes or lesions noted Neuro: General: patient oriented x3 Cognition (Neuro): normal cognition Extrem: General: Yes normal to inspection and Yes no pedal edema DS: Data Data Completed and Pending Labs on day of discharge: Laboratory Results - last 24 hr 08/16/20 08/16/20 08/16/20 05:46 11:28 16:15 WBC RBC Hgb Hct MCV MCH MCHC RDW Plt Count MPV Immature Gran % (Auto) Neut % (Auto) Lymph % (Auto) [place] % (Auto) Eos % (Auto) Baso % (Auto) Lymph # (Auto) [place] # (Auto) Eos # (Auto) Baso # (Auto) Abs Immat Gran (auto) Absolute Neuts (auto) Absolute Nucleated RBC Nucleated RBC % (auto) PT INR Sodium Potassium Chloride Carbon Dioxide Anion Gap BUN Creatinine Estim Creat Clear Calc Estimated GFR POC Glucose 132 H 146 H Random Glucose Fasting Glucose Calcium Iron TIBC % Saturation Unsat Iron Binding Ferritin Triglycerides 293 Cholesterol 132 D LDL Cholesterol, Calc 43 HDL Cholesterol 31 D 25-OH Vitamin D Total TSH Free T4 08/16/20 08/17/20 08/17/20 20:24 05:39 05:39 WBC 6.7 RBC 3.62 L Hgb 11.3 L Hct 35.4 L MCV 97.8 MCH 31.2 MCHC 31.9 RDW 12.8 Plt Count 209 MPV 9.8 Immature Gran % (Auto) 0.4 Neut % (Auto) 57.4 Lymph % (Auto) 31.8 [place] % (Auto) 7.4 Eos % (Auto) 2.4 Baso % (Auto) 0.6 Lymph # (Auto) 2.1 [place] # (Auto) 0.5 Eos # (Auto) 0.2 Baso # (Auto) 0.0 Abs Immat Gran (auto) 0.03 Absolute Neuts (auto) 3.9 Absolute Nucleated RBC 0.000 Nucleated RBC % (auto) 0.0 PT INR Sodium Potassium Chloride Carbon Dioxide Anion Gap BUN Creatinine Estim Creat Clear Calc Estimated GFR POC Glucose 157 H Random Glucose Fasting Glucose Calcium Iron 35 TIBC 284 % Saturation 12 L Unsat Iron Binding 249 Ferritin 26 Triglycerides Cholesterol LDL Cholesterol, Calc HDL Cholesterol 25-OH Vitamin D Total 28.7 TSH 0.03 L Free T4 3.99 H 08/17/20 08/17/20 08/17/20 05:39 05:39 05:39 WBC RBC Hgb Hct MCV MCH MCHC RDW Plt Count MPV Immature Gran % (Auto) Neut % (Auto) Lymph % (Auto) [place] % (Auto) Eos % (Auto) Baso % (Auto) Lymph # (Auto) [place] # (Auto) Eos # (Auto) Baso # (Auto) Abs Immat Gran (auto) Absolute Neuts (auto) Absolute Nucleated RBC Nucleated RBC % (auto) PT 12.3 INR 1.0 Sodium 140 Cancelled Potassium 4.6 Cancelled Chloride 104 Cancelled Carbon Dioxide 27 Cancelled Anion Gap 14 Cancelled BUN 13 Cancelled Creatinine 1.13 Cancelled Estim Creat Clear Calc 56.3 Cancelled Estimated GFR 48 Cancelled POC Glucose Random Glucose Cancelled Fasting Glucose 105 H Calcium 9.0 D Cancelled Iron TIBC % Saturation Unsat Iron Binding Ferritin Triglycerides Cholesterol LDL Cholesterol, Calc HDL Cholesterol 25-OH Vitamin D Total TSH Free T4 08/17/20 08/17/20 07:19 10:47 WBC RBC Hgb Hct MCV MCH MCHC RDW Plt Count MPV Immature Gran % (Auto) Neut % (Auto) Lymph % (Auto) [place] % (Auto) Eos % (Auto) Baso % (Auto) Lymph # (Auto) [place] # (Auto) Eos # (Auto) Baso # (Auto) Abs Immat Gran (auto) Absolute Neuts (auto) Absolute Nucleated RBC Nucleated RBC % (auto) PT INR Sodium Potassium Chloride Carbon Dioxide Anion Gap BUN Creatinine Estim Creat Clear Calc Estimated GFR POC Glucose 105 239 H Random Glucose Fasting Glucose Calcium Iron TIBC % Saturation Unsat Iron Binding Ferritin Triglycerides Cholesterol LDL Cholesterol, Calc HDL Cholesterol 25-OH Vitamin D Total TSH Free T4 Preliminary micro results at discharge 08/15/20 11:47 Blood Culture - Preliminary Blood - Venous No growth after 24 hours. 08/15/20 11:46 Blood Culture - Preliminary Blood - Venous No growth after 24 hours. Discharge Plan Discharge Patient Disposition: Home, Self-Care Discharge Diagnosis: Intractable nausea Referrals: Mikey Villavicencio MD [Primary Care Provider] - 1 Week Reggie Melgar [Physician] - 1 Week Discharge Medications: New ondansetron 4 mg Tablet,Disintegrating 4 mg translingual TIDAC Qty: 45 RF: 0 Continued buspirone 15 mg tablet 15 mg PO BID 90 Days Qty: 180 RF: 12 venlafaxine 100 mg tablet 100 mg PO BID RF: 0 lorazepam 1 mg tablet 1 mg PO BID PRN (Reason: anxiety) 30 Days Qty: 60 RF: 0 albuterol sulfate 90 mcg/actuation HFA aerosol inhaler 2 puff PO QID Qty: 8.5 RF: 3 gabapentin 300 mg capsule 300 mg PO TID Qty: 270 RF: 0 triamterene-hydrochlorothiazid 37.5-25 mg capsule 1 cap PO DAILY RF: 0 oxycodone-acetaminophen 5-325 mg tablet 1 tab PO TID PRN (Reason: Pain) RF: 0 mirtazapine 15 mg tablet 15 mg PO BEDTIME RF: 0 pantoprazole 40 mg tablet,delayed release (DR/EC) 40 mg PO DAILY 90 Days Qty: 90 RF: 1 Cosentyx Pen (2 Pens) 150 mg/mL pen injector 2 syringe subcut Q4W RF: 0 metformin 500 mg Tablet 500 mg PO BID RF: 0 prednisone 2.5 mg Tablet 7.5 mg PO DAILY RF: 0 aspirin 81 mg Tablet 81 mg PO DAILY RF: 0 lisinopril 5 mg Tablet 5 mg PO DAILY RF: 0 fenofibrate 54 mg tablet 54 mg PO DAILY 90 Days Qty: 90 RF: 1 atorvastatin 40 mg tablet 40 mg PO BEDTIME 90 Days Qty: 90 RF: 1 levothyroxine 175 mcg tablet 175 mcg PO DAILY 90 Days Qty: 90 RF: 3 Incruse Ellipta 62.5 mcg/actuation blister with device 1 inh inhalation DAILY 90 Days Qty: 90 RF: 1 Lactobacillus acidophilus [Acidophilus] Capsule 100 mg PO DAILY RF: 0 docusate sodium [Stool Softener] 100 mg capsule 100 mg PO DAILY RF: 0 Discontinued promethazine 25 mg tablet 25 mg PO TID PRN (Reason: nausea and vomiting) 30 Days Qty: 90 RF: 0 Discharge Orders: Discharge Order (Routine); Ordered 08/17/20 Ordered By: Selvin Prabhakar Diet: advance to usual diet Activity on Discharge: As tolerated Stand Alone Forms: Patient Portal Discharge page Care Plan Goals: Avoid hospitalization, recovery Health Concerns: Intractable nausea Plan of Treatment: Please continue taking zofran before each meal. if you continue to have intractable nausea, follow up with breeder hen service technician Assessment: You were treated for intractable nausea of unknown etiology. Please continue taking zofran before each meal. follow up with breeder hen service technician. Medications can also cause nausea, therefore please follow up with PCP to consider medication adjustment. You will also need to have Head CT done outpatient once your kidney function normalizes. you had mild Kidney injury due to dehydration that has resolved. please follow up with PCP in <1 wk to repeat kidney function levels.
[2020-08-17 11:56] VITALS: PULSE 77; O2SAT 93
[2020-08-17 12:00] VITALS: BP 121/59; PULSE 102; RESP 20; TEMP 37; O2SAT 97
[2020-08-17] MEDS: Insulin Lispro 100 UNIT/ML 3 ML VIAL SUBCUT (12:16)
--- NOTE | 2020-08-17 22:43 | CONS_ITS ---
DATE OF SERVICE: 08/16/2020 REASON FOR CONSULTATION: Nausea. HISTORY OF PRESENT ILLNESS: The patient is a 64-year-old female, well known to me from a recent office visit and outpatient upper endoscopy. I met the patient in July, at which time she was suffering from ongoing issues of nausea and weight loss since approximately January of 2020. At the onset of her symptoms last January, she was hospitalized with some dehydration and hypercalcemia. However, that ultimately resolved and it was felt that her hypercalcemia may have been related to taking a lot of Tums. Her symptoms of nausea persist despite having normal calcium levels. A workup at that time last year revealed a normal appearing CAT scan of the head,chest, abdomen, and pelvis without any significant findings that would account for her symptoms. She has been treated with trials of different antiemetics and PPI therapy. When I met her in July of 2020, she was on naproxen and prednisone in relation to arthritis, polymyalgia rheumatica, and fibromyalgia. She really does not have much in the way of any vomiting, abdominal pain, jaundice, or change in bowel habits. However, she has lost about 20 pounds in relation to the anorexia and the nausea. She was not having any significant heartburn or dysphagia. She does describe the eating will occasionally worsen the nausea, but not all the time. Prior to last January, she denies any chronic GI complaints. She does smoke but does not use any significant amounts of alcohol. She also does not use any other NSAIDs or aspirin aside from the previous naproxen. There is no family history of ulcer disease or GI malignancy. She has undergone upper endoscopy on July 31 with the finding of some mild reflux esophagitis and a small hiatal hernia. Also noted were some benign gastric polyps. There are no other significant findings of significant gastritis nor ulcer disease. She did have a biopsies of the duodenum, stomach, and gastroesophageal junction, all of which were unremarkable. Specifically, there was no evidence of any celiac disease, GERD, H pylori, nor Riggs's esophagus. After the endoscopy, she continued on her antiemetics and PPIs but continues to have problems. She had been scheduled for a nuclear medicine gastric emptying study for September. Due to worsening symptoms of nausea, anorexia, and weakness, she came to the ER and was admitted for evaluation. Since hospitalization, she has remained on IV fluids, but has been tolerating some food. She denies any abdominal pain, vomiting, nor fevers. There has been no sign of bleeding. She denies any significant change in her bowel habits. She denies any significant diarrhea. MEDICATIONS: Medications at home included albuterol inhaler, aspirin, atorvastatin, buspirone, Cosentyx, Colace, fenofibrate, gabapentin, levothyroxine, lisinopril, lorazepam, metformin, mirtazapine, Zofran, oxycodone, pantoprazole, prednisone, triamterene with hydrochlorothiazide. PAST MEDICAL HISTORY: Polymyalgia rheumatica, hypothyroidism, diabetes mellitus, anxiety, psoriasis, depression, hyperlipidemia, reflux, COPD, asthma, Graves disease, anemia, fibromyalgia. Negative colonoscopy in [address] Arellano.. Cholecystectomy and thyroidectomy. SOCIAL HISTORY: She is a . She is retired. She smokes about 1-1/2 packs a day, but does not use any alcohol. FAMILY HISTORY: Noncontributory. REVIEW OF SYSTEMS: CONSTITUTIONAL: Decreased appetite in relation to nausea. Weight loss. SKIN: No rash. No pruritus, although she does have a history of psoriasis. CARDIAC: No chest pain. PULMONARY: No cough. No hemoptysis. GASTROINTESTINAL: As above. GENITOURINARY: No dysuria. No hematuria. PHYSICAL EXAMINATION: GENERAL: The patient is pleasant, alert, comfortable appearing female, sitting up in a chair, having some lunch. SKIN: Warm and dry. Nonjaundiced. HEENT: Anicteric sclerae. NECK: Supple. ABDOMEN: Soft, nondistended, and nontender without mass. LABORATORY DATA: White blood cell count 8.6, hemoglobin 12.9, and platelets 349,000. PT 12.7, INR 1.1. Normal electrolytes. BUN 13, creatinine 1.1. Blood sugar 105. Chest x-ray was unremarkable. IMPRESSION: At the present time, the patient does appear stable and improved from admission in regard to her abnormal labs, dehydration, and overall symptomatology. Her abdominal exam is benign. In regard to the etiology of her chronic nausea, I do not have a definitive explanation at this point given her negative workup over the past 6 months including the recent upper endoscopy. There does not appear to be any component of obstruction nor significant upper GI tract disease. I did ask her whether or not she thinks anxiety might be contributing to this given her underlying history of that, but she reports that she does not think so. Given that her workup thus far has been nonrevealing, I do wonder if some of her nausea might be related to one of her medications, especially the pain medication or psychiatric medication. At this point given her good clinical appearance, I would continue to observe her. I will continue 1 dose of a PPI daily, but have ordered some Zofran to be given to her on a standing basis at least twice a day before meals to see if that can help limit the nausea and her symptoms. I do not think any immediate imaging study is required, but certainly if her symptoms persist and make it difficult to have her leave the hospital, I would then consider repeating her CAT scan of the abdomen and pelvis since her last one was done back in January 2020, as well as a CAT scan of the head to rule out any type of neurologic issue contributing to her nausea. However, if she does improve on symptomatic treatment, then she could be discharged and I will plan to follow her up in the office. She is already scheduled for a nuclear medicine gastric emptying study for September. This has all been discussed with the patient in detail and she is comfortable with this plan. Thank you for the consultation. MD ADONIS Christopher/RADHA / [id number] [facility]
[2020-08-19 04:08] LABS: Folate 18.7 ng/mL (> or = 4.0); Vitamin B12 223 pg/mL (200-900)
== END 2020-08-17 13:01 | disposition home or self-care (01) | DRG 315 ==
LOC: HO.ED 17:09 → HO.EDOVER 18:58 → HO.IMC 22:12
PROVIDERS: Anesthesiology; Internal Medicine; Admitting Provider Hospitalist; Emergency Provider Emergency Medicine Emergency Medical Services; PCP Internal Medicine; Visit Provider Internal Medicine
DX: I95.9 Hypotension, unspecified (principal); N17.9 Acute kidney failure, unspecified; F17.210 Nicotine dependence, cigarettes, uncomplicated; Z71.6 Tobacco abuse counseling; Z20.822 Contact with and (suspected) exposure to COVID-19; E86.0 Dehydration; E11.9 Type 2 diabetes mellitus without complications; E78.5 Hyperlipidemia, unspecified; E03.9 Hypothyroidism, unspecified; F41.9 Anxiety disorder, unspecified; M35.3 Polymyalgia rheumatica; R11.0 Nausea; Z88.5 Allergy status to narcotic agent; Z79.51 Long term (current) use of inhaled steroids; Z79.82 Long term (current) use of aspirin; Z79.890 Hormone replacement therapy; Z79.899 Other long term (current) drug therapy; Z66 Do not resuscitate
CPT/HCPCS: 36415; 71045; 74176; 80048; 80053; 80061; 82040; 82247; 82306; 82607; 82728; 82746; 82947; 83540; 83605; 84439; 84443; 85025; 85610; 85730; 87040; 87086; 87635; 93005; 99285; J1650; J2405; Q0163

== ENCOUNTER 2020-09-07 10:07 | Emergency (ER) | payer MEDICARE, OTHER, SELFPAY ==
--- NOTE | ~2020-09-07 | XR_ITS ---
EXAMINATION: XR CHEST CLINICAL INFORMATION: Nausea, and abdominal pain. COMPARISON: Chest radiograph done on 08/15/2020. TECHNIQUE: Frontal view of the chest was obtained. FINDINGS: Persistent rotation, unchanged since 08/15/2020. No significant abnormality is noted involving the heart, lungs, mediastinum, bony thorax or soft tissues. XR/XR chest 1V IMPRESSION: No radiographic evidence of acute pulmonary disease, appears similar to prior study dated 08/15/2020.
--- NOTE | ~2020-09-07 | CT_ITS ---
EXAMINATION: CT ABDOMEN AND PELVIS WITH CONTRAST CLINICAL INFORMATION: Right upper quadrant/right flank pain. COMPARISON: CT of the abdomen and pelvis done on 08/17/2020. TECHNIQUE: Multidetector volumetric images were obtained from the superior aspect of the liver through the pubic symphysis following administration 85 mL of Omnipaque 350 intravenous contrast. Sagittal and coronal reformatted images were obtained on the technologist's workstation. Oral contrast: No This CT examination was performed using dose optimization techniques as appropriate, variously including the following: *Automated exposure control *Adjustment of mA and/or kV according to patient size (this includes techniques or standardized protocols for targeted exams where dose is matched to indication/reason for exam; i.e. extremities or head) *Use of iterative reconstruction technique DLP: 684 mGy-cm FINDINGS: LUNG BASES: The visualized lung bases are unremarkable. LIVER, GALLBLADDER, AND BILIARY TREE: The liver is normal in size, shape, and attenuation. No focal hepatic lesion or biliary ductal dilatation is present. The gallbladder is surgically absent. PANCREAS: Unremarkable. SPLEEN: Unremarkable. ADRENAL GLANDS: Mild thickening of the left adrenal gland is noted, unchanged. The right adrenal gland is unremarkable. KIDNEYS AND URETERS: The kidneys are normal in size, shape, and attenuation. No hydronephrosis, hydroureter, or calculi seen. No perinephric stranding. BLADDER: Unremarkable. GASTROINTESTINAL TRACT: The small and large bowel are unremarkable. The appendix is well-visualized, shows appendicolith at its tip without any CT features of appendicitis. ABDOMINAL WALL: No significant hernia is appreciated. LYMPH NODES: Normal. VASCULAR: Mild diffuse atherosclerotic disease of the aorta and is branches. PELVIC VISCERA: No evidence of any pelvic mass. No free fluid and/or free air. OSSEOUS STRUCTURES: Moderate diffuse osteopenia, grade 1 retrolisthesis of L5 over S1. Moderate multilevel degenerative spondylosis and facet joint significant arthritic changes are noted at lower lumbar spine. CT/CT abdomen pelvis w con IMPRESSION: No CT evidence of any acute intra-abdominal and/or intrapelvic pathology. No significant change since prior study dated 08/17/2020.
[2020-09-07 10:15] VITALS: BP 130/00; BP 141/71; PULSE 70; PULSE 78; RESP 20; TEMP 36.9; O2SAT 96; O2SAT 98; BMI 32.3
[2020-09-07 10:18] LABS: Glucose, Whole Blood 150 mg/dL (60-115)
--- NOTE | 2020-09-07 10:36 | ECG_ITS ---
Test Reason : VOMITING Blood Pressure : / mmHG Vent. Rate : 078 BPM Atrial Rate : 078 BPM P-R Int : 154 ms QRS Dur : 082 ms QT Int : 408 ms P-R-T Axes : 051 064 055 degrees QTc Int : 465 ms Normal sinus rhythm Normal ECG When compared with ECG of 15-AUG-2020 11:20, No significant change was found Referred By: Karina Conde Electronically Signed By:NICOL BENSON MD
--- NOTE | 2020-09-07 10:47 | ED.NAVMDI ---
HPI - Nausea/Vomiting/Diarrhea General Chief complaint: Nausea/Vomiting/Diarrhea Stated complaint: NAUSEA, UNABLE TO EAT,H/O DM Time Seen by Provider: 09/07/20 10:30 Source: patient and EMS Mode of arrival: EMS Limitations: no limitations History of Present Illness HPI Narrative: 64 year old female with past medical history of asthma/COPD currently everyday smoker not on oxygen, gastroesophageal reflux disease, diabetes, hypertension, hyperlipidemia, hypothyroidism, hypercalcemia secondary to hyperparathyroidism, iron deficiency anemia, fibromyalgia, polymyalgia rheumatica on steroids and surgical history of cholecystectomy presenting to the ED with complaints of nausea for months worse in the past 2 days with associated right-sided abdominal pain. Reports increased dry mouth. Reports she is a diabetic and has not eaten in 2 days or taking her metformin. POC at triage was 150. she reports she has a follow-up appointment with a fabric normalizer in the next month. She denies any dizziness, headaches, black or bloody emesis, vomiting, chest pain or shortness of breath, dyspnea on exertion, orthopnea, palpitations, radiation of the abdominal pain to the chest or the back, diarrhea, constipation, black or bloody stools, lower extremity edema, dysuria, hematuria, recent travel or sick contacts or possible bad food exposure or any other symptoms complaints or concerns at this time. MD elicited complaint: nausea and abdominal pain Onset (ago): month(s) ( Months although worsened the past 2 days) Associated nausea: Yes Associated abdominal pain: Yes Location of pain: RUQ, RLQ and R flank Pain consistency: constant Severity: mild Quality: aching Exacerbating factors: none Relieving factors: none Associated symptoms: denies other symptoms Related Data Home Medications Medication Instructions Recorded Confirmed Cosentyx Pen (2 Pens) 2 syringe SUBCUT Q4W 01/16/20 08/27/20 aspirin 81 mg PO DAILY 01/16/20 08/27/20 lisinopril 5 mg PO DAILY 01/16/20 08/27/20 metformin 500 mg PO BID 01/16/20 08/27/20 Lactobacillus acidophilus 100 mg PO DAILY 01/25/20 08/27/20 docusate sodium 100 mg capsule 100 mg PO DAILY 01/25/20 08/27/20 venlafaxine 100 mg tablet 100 mg PO BID 06/07/20 08/27/20 mirtazapine 15 mg PO BEDTIME 08/15/20 08/27/20 triamterene-hydrochlorothiazid 1 cap PO DAILY 08/15/20 08/27/20 Previous Rx's Medication Instructions Recorded buspirone 15 mg tablet 15 mg PO BID 90 Days #180 tab 12/29/19 atorvastatin 40 mg tablet 40 mg PO BEDTIME 90 Days #90 tab 03/28/20 fenofibrate 54 mg tablet 54 mg PO DAILY 90 Days #90 tab 03/28/20 levothyroxine 175 mcg tablet 175 mcg PO DAILY 90 Days #90 tab 06/27/20 umeclidinium 62.5 mcg/actuation 1 inh INHALATION DAILY 90 Days #90 06/27/20 blister powder for inhalation cap albuterol sulfate 90 mcg/actuation 2 puff PO QID #8.5 g 08/04/20 aerosol inhaler gabapentin 300 mg capsule 300 mg PO TID #270 cap 08/06/20 ondansetron 4 mg TRANSLINGUAL TIDAC #45 tab 08/17/20 pantoprazole 40 mg PO DAILY 90 Days #90 tab 08/17/20 oxycodone-acetaminophen 5 mg-325 1 tab PO TID PRN #30 tab 08/28/20 mg tablet lorazepam 1 mg tablet 1 mg PO BID PRN 30 Days #60 tab 08/30/20 promethazine 25 mg tablet 25 mg PO TID PRN 7 Days #21 tab 08/30/20 diphenhydramine HCl [Benadryl 50 mg PO TID PRN #10 tab 09/07/20 Allergy] metoclopramide HCl [Reglan] 10 mg PO Q6H PRN #14 tab 09/07/20 ondansetron HCl [Zofran] 4 mg PO Q8H PRN #14 tab 09/07/20 Allergies Allergy/AdvReac Type Severity Reaction Status Date / Time codeine [Codeine] AdvReac Unknown VOMITING Verified 08/27/20 10:48 absorbable sutures Allergy Unknown Unknown Uncoded 08/27/20 10:48 Cat/Feline Product Allergy Unknown SWELLING,INFECTION Uncoded 08/27/20 10:48 Derivatives AT SITE WITH CAT GUT SUTURES dissolving stitches Allergy Unknown Unknown Uncoded 08/27/20 10:48 Review of Systems Review of Systems: Constitutional : No Fever, No Chills, No Night Sweats, No Fatigue, No Malaise Cardiovascular : No Chest Pain, No SOB Respiratory : No Cough, No Sputum, No Wheezing, No Dyspnea Gastrointestinal : positive Nausea, positive abdominal Pain, No Vomiting, No Diarrhea, No Hematochezia, No Melena Genitourinary : No irregular bleeding, No Dysuria, No Urinary Frequency, No Hematuria,No Urinary Incontinence, No Urgency, No Flank Pain Musculoskeletal : No joint pain, No Myalgias, No Joint Swelling Skin : No Skin Lesions, No rash Neuro : No Weakness, No Numbness, No Paresthesias, No Loss of Consciousness, No Dizziness, No Headache Heme/Lymph: No Lymphadenopathy Endocrine : No Temperature Intolerance Yes all other systems are reviewed and are negative Gastrointestinal: Gastrointestinal: Reports nausea PMFSH Past Medical History Attestation statement: The following information was validated with the patient. Medical History Acquired hypothyroidism Anxiety Asthma Cervical radiculopathy due to degenerative joint disease of spine COPD (chronic obstructive pulmonary disease) Depression Diabetes Diabetes mellitus Fibromyalgia GERD (gastroesophageal reflux disease) Graves' disease Hypertension Hypertriglyceridemia Hypothyroid Intermittent diarrhea Intractable nausea and vomiting Iron deficiency anemia Lipoprotein deficiencies Lumbar degenerative disc disease Mixed hyperlipidemia Nausea and vomiting Obesity (BMI 30-39.9) Polymyalgia rheumatica Psoriatic arthritis Smoker Surgical History History of left breast biopsy History of thyroid surgery History of thyroidectomy History of tonsillectomy and adenoidectomy Hx of cholecystectomy Family History Family History Father Cancer Emphysema of lung Heart disease Social History Social History Household Members: None Housing: House Do you presently have visiting nurse or other home services: No Alcohol intake: never Patient Tobacco Use Status: Current everyday Tobacco user Cigarette Packs Per Day: 2 Cigarettes Per Day: 40.0 Years Smoked: 40 Advance Directives: Yes Advance Directives on File: Yes Advance Directives Date on File: 07/31/20 service: No Current occupational status: retired Physical Exam Vital Signs: Vital Signs: Last Vital Signs Temp 97.9 F 09/07/20 13:03 Pulse 89 09/07/20 13:03 Resp 20 09/07/20 13:03 BP 134/76 09/07/20 13:03 Pulse Ox 91 L 09/07/20 13:03 Body Mass Index 32.3 vital signs have been reviewed as normal and appeared to be correct. Blood pressure Hypertensive 141/71. Heart rate normal. Respiration rate normal. Temperature normal. Oxygen saturation normal. Appearance: Alert. Oriented X3. No acute distress. Head: Normal external exam. Normocephalic. Eyes: PERRLA. EOMI. Conjunctiva and sclera normal. Eyelids normal. ENT: Pharynx normal. Uvula midline. Moist mucous membranes. No trismus noted. No drooling noted. No muffled voice noted. Neck: Normal inspection. Neck supple. FROM. No adenopathy. No meningeal signs. CVS: Normal heart rate and rhythm. Heart sound normal. No murmurs noted. Pulses normal throughout. Respiratory: No respiratory distress. Painless inspiration. Breath sounds normal. No wheezes/rales/rhonchi noted. Chest nontender. No accessory muscle usage noted or decreased air movement noted. Abdomen: Soft and mild tenderness to palpation to right upper quadrant /right flank/right lower quadrant. Nondistended. No guarding. No rigidity. Bowel sounds normal in all 4 quadrants. No distention noted. No organomegaly noted. No visible injury noted. No rebound tenderness. Negative Rovsing sign. Negative obturator's sign. Negative psoas sign. Negative Mahajan sign. Back: No CVA tenderness. Full range of motion noted. Skin: Skin warm and dry. Normal skin color. Normal skin turgor. No rashes/lesions/lacerations noted. Extremities: no lower extremity edema. No calf tenderness noted. Extremities exhibit normal range of motion. Extremities nontender. Neuro: Oriented X 3. No motor deficit. No sensory deficit. Reflexes normal. Normal steady gait. Course Course Course Narrative: 10:30am - 64 year old female with past medical history of asthma/COPD currently everyday smoker not on oxygen, gastroesophageal reflux disease, diabetes, hypertension, hyperlipidemia, hypothyroidism, hypercalcemia secondary to hyperparathyroidism, iron deficiency anemia, fibromyalgia, polymyalgia rheumatica on steroids and surgical history of cholecystectomy presenting to the ED with complaints of nausea for months worse in the past 2 days with associated right-sided abdominal pain. Plan: Labs, UA, COVID/RSV/flu swab, CT scan abdomen pelvis with IV contrast, EKG. Provide a L of IV fluids, 15 mg of IV Toradol and 4 mg of Zofran then re-evaluate. Reevaluation(s) Reevaluation #1: - Throughout the emergency room visit patient continued to ask for nausea medications despite having multiple antiemetic medications that were ordered. She continued to say that it was not providing any affect although she has been complaining of the nausea for months and she is not actively vomiting here in the ER although I gave her multiple medications which include Zofran, Reglan, Benadryl and Compazine. - labs obtained and patient's blood glucose level 150. Calcium 10.3. Otherwise all other labs were within normal limits. COVID swab negative RSV/ flu negative. CT scan of abdomen and pelvis revealed chronic changes no acute processes were noted. Her EKG was normal sinus rhythm with ventricular rate of 78 with a normal PA interval normal QRS duration normal QT/ QTC interval. No acute ischemic changes were noted. Her chest x-ray was also within normal limits no acute processes were noted. - Therefore will DC home with antiemetic medication and instructions to follow-up with a GI doctor will give her referral for possible H pylori testing and to return if any new or worsening symptoms. Again patient is complaining of nausea she is not actually vomiting here in the ER all her labs are normal and she is able to tolerate p.o. therefore patient will be discharged at this time. Patient understands agrees with this plan. Time: 13:04 [facility] - Nausea/Vomiting/Diarrhea Medical Records Attestation: I reviewed the patient's medical records. Lab Data Attestation: I reviewed the patient's lab results. Result diagrams: 09/07/20 10:44 09/07/20 11:23 Labs: Lab Results 09/07/20 09/07/20 09/07/20 Range/Units 10:14 10:44 10:44 WBC 10.1 (4.8-10.8) X10*3/uL RBC 4.51 D (4.20-5.50) X10*6/uL Hgb 13.9 D (12.0-16.0) g/dl Hct 41.7 (37-47) % MCV 92.5 (80-98) fL MCH 30.8 (27.0-33.0) pg MCHC 33.3 (31.0-35.0) g/dl RDW 12.1 (11.0-16.0) % Plt Count 320 D (160-400) X10*3/uL MPV 9.3 L (9.4-12.3) fL Immature Gran % (Auto) 0.5 H (0.0-0.4) % Neut % (Auto) 81.2 H (45-73) % Lymph % (Auto) 12.4 L (20-40) % [place] % (Auto) 4.5 (2-11) % Eos % (Auto) 0.7 (0-4) % Baso % (Auto) 0.7 (0-2) % Lymph # (Auto) 1.3 (1.2-4.9) X10*3/uL [place] # (Auto) 0.5 (0.1-1.2) X10*3/uL Eos # (Auto) 0.1 (0.0-0.4) X10*3/uL Baso # (Auto) 0.1 (0.0-0.2) X10*3/uL Abs Immat Gran (auto) 0.05 H (0.00-0.03) X10*3/uL Absolute Neuts (auto) 8.2 (2.0-8.3) X10*3/uL Absolute Nucleated RBC 0.000 (0.0-0.012) X10*3/uL Nucleated RBC % (auto) 0.0 (0.0-0.2) /100WBC Hold Purple Top SEE NOTE PT (9.9-13.0) SEC INR (0.9-1.1) Sodium (135-145) mmol/L Potassium (3.3-5.1) mmol/L Chloride (96-108) mmol/L Carbon Dioxide (22-29) mmol/L Anion Gap (12-20) BUN (9-16) mg/dL Creatinine (0.5-1.4) mg/dL Estim Creat Clear Calc Estimated GFR POC Glucose 150 H (60-115) mg/dL Random Glucose (60-115) mg/dL Calcium (8.4-10.2) mg/dL Magnesium (1.6-2.6) mg/dL Total Bilirubin (0.0-1.0) mg/dL AST (5-31) U/L ALT (0-31) U/L Alkaline Phosphatase (39-117) U/L Total Protein (6.5-8.0) g/dL Albumin (3.5-5.0) g/dL Coronavirus (PCR) (Negative) Influenza Type A (PCR) (Negative) Influenza Type B (PCR) (Negative) RSV RNA Qual (PCR) (Negative) 09/07/20 09/07/20 09/07/20 Range/Units 10:44 10:45 11:23 WBC (4.8-10.8) X10*3/uL RBC (4.20-5.50) X10*6/uL Hgb (12.0-16.0) g/dl Hct (37-47) % MCV (80-98) fL MCH (27.0-33.0) pg MCHC (31.0-35.0) g/dl RDW (11.0-16.0) % Plt Count (160-400) X10*3/uL MPV (9.4-12.3) fL Immature Gran % (Auto) (0.0-0.4) % Neut % (Auto) (45-73) % Lymph % (Auto) (20-40) % [place] % (Auto) (2-11) % Eos % (Auto) (0-4) % Baso % (Auto) (0-2) % Lymph # (Auto) (1.2-4.9) X10*3/uL [place] # (Auto) (0.1-1.2) X10*3/uL Eos # (Auto) (0.0-0.4) X10*3/uL Baso # (Auto) (0.0-0.2) X10*3/uL Abs Immat Gran (auto) (0.00-0.03) X10*3/uL Absolute Neuts (auto) (2.0-8.3) X10*3/uL Absolute Nucleated RBC (0.0-0.012) X10*3/uL Nucleated RBC % (auto) (0.0-0.2) /100WBC Hold Purple Top PT 11.8 (9.9-13.0) SEC INR 1.0 (0.9-1.1) Sodium 139 (135-145) mmol/L Potassium 4.2 (3.3-5.1) mmol/L Chloride 105 (96-108) mmol/L Carbon Dioxide 19 L (22-29) mmol/L Anion Gap 19 (12-20) BUN 14 (9-16) mg/dL Creatinine 0.77 (0.5-1.4) mg/dL Estim Creat Clear Calc 82.6 Estimated GFR > 60 POC Glucose (60-115) mg/dL Random Glucose 148 H (60-115) mg/dL Calcium 10.3 H D (8.4-10.2) mg/dL Magnesium 1.7 (1.6-2.6) mg/dL Total Bilirubin 0.4 (0.0-1.0) mg/dL AST 14 (5-31) U/L ALT 7 (0-31) U/L Alkaline Phosphatase 80 (39-117) U/L Total Protein 6.3 L (6.5-8.0) g/dL Albumin 4.1 (3.5-5.0) g/dL Coronavirus (PCR) NEGATIVE (Negative) Influenza Type A (PCR) NEGATIVE (Negative) Influenza Type B (PCR) NEGATIVE (Negative) RSV RNA Qual (PCR) NEGATIVE (Negative) Imaging Data Chest x-ray: Attestation: I personally reviewed and interpreted this imaging study as follows: Radiologist's impression: FINDINGS: Persistent rotation, unchanged since 08/15/2020. No significant abnormality is noted involving the heart, lungs, mediastinum, bony thorax or soft tissues. XR/XR chest 1V IMPRESSION: No radiographic evidence of acute pulmonary disease, appears similar to prior study dated 08/15/2020. CT scan abdomen pelvis with IV contrast: Attestation: I personally reviewed and interpreted this imaging study as follows: Radiologist's impression: FINDINGS: LUNG BASES: The visualized lung bases are unremarkable. LIVER, GALLBLADDER, AND BILIARY TREE: The liver is normal in size, shape, and attenuation. No focal hepatic lesion or biliary ductal dilatation is present. The gallbladder is surgically absent. PANCREAS: Unremarkable. SPLEEN: Unremarkable. ADRENAL GLANDS: Mild thickening of the left adrenal gland is noted, unchanged. The right adrenal gland is unremarkable. KIDNEYS AND URETERS: The kidneys are normal in size, shape, and attenuation. No hydronephrosis, hydroureter, or calculi seen. No perinephric stranding. BLADDER: Unremarkable. GASTROINTESTINAL TRACT: The small and large bowel are unremarkable. The appendix is well-visualized, shows appendicolith at its tip without any CT features of appendicitis. ABDOMINAL WALL: No significant hernia is appreciated. LYMPH NODES: Normal. VASCULAR: Mild diffuse atherosclerotic disease of the aorta and is branches. PELVIC VISCERA: No evidence of any pelvic mass. No free fluid and/or free air. OSSEOUS STRUCTURES: Moderate diffuse osteopenia, grade 1 retrolisthesis of L5 over S1. Moderate multilevel degenerative spondylosis and facet joint significant arthritic changes are noted at lower lumbar spine. CT/CT abdomen pelvis w con IMPRESSION: No CT evidence of any acute intra-abdominal and/or intrapelvic pathology. No significant change since prior study dated 08/17/2020. ECG Data Attestation: I personally reviewed and interpreted this ECG as follows: ECG interpretation date: 09/07/20 ECG interpretation time: 11:16 Interpretation: EKG was normal sinus rhythm with ventricular rate of 78 with a normal PA interval normal QRS duration normal QT/ QTC interval. No acute ischemic changes were noted. Critical Care Time Critical Care Time Critical Care Time: Yes Total Critical Care Time: 60 Attestation: I personally attest to this time spent taking care of the patient Discharge Plan Discharge Clinical Impression: Nausea Patient Disposition: Home, Self-Care Instructions: Acute Nausea and Vomiting (ED) Prescriptions: New ondansetron HCl [Zofran] 4 mg tablet 4 mg PO Q8H PRN (Reason: nausea and vomiting) Qty: 14 RF: 0 metoclopramide HCl [Reglan] 10 mg tablet 10 mg PO Q6H PRN (Reason: nausea and vomiting) Qty: 14 RF: 0 diphenhydramine HCl [Benadryl Allergy] 25 mg tablet 50 mg PO TID PRN (Reason: nausea and vomiting) Qty: 10 RF: 0 No Action buspirone 15 mg tablet 15 mg PO BID 90 Days Qty: 180 RF: 12 venlafaxine 100 mg tablet 100 mg PO BID RF: 0 albuterol sulfate 90 mcg/actuation HFA aerosol inhaler 2 puff PO QID Qty: 8.5 RF: 3 gabapentin 300 mg capsule 300 mg PO TID Qty: 270 RF: 0 oxycodone-acetaminophen 5-325 mg tablet 1 tab PO TID PRN (Reason: Pain) Qty: 30 RF: 0 lorazepam 1 mg tablet 1 mg PO BID PRN (Reason: anxiety) 30 Days Qty: 60 RF: 0 promethazine 25 mg tablet 25 mg PO TID PRN (Reason: nausea and vomiting) 7 Days Qty: 21 RF: 0 triamterene-hydrochlorothiazid 37.5-25 mg capsule 1 cap PO DAILY RF: 0 mirtazapine 15 mg tablet 15 mg PO BEDTIME RF: 0 ondansetron 4 mg Tablet,Disintegrating 4 mg translingual TIDAC Qty: 45 RF: 0 pantoprazole 40 mg tablet,delayed release (DR/EC) 40 mg PO DAILY 90 Days Qty: 90 RF: 1 Cosentyx Pen (2 Pens) 150 mg/mL pen injector 2 syringe subcut Q4W RF: 0 metformin 500 mg Tablet 500 mg PO BID RF: 0 aspirin 81 mg Tablet 81 mg PO DAILY RF: 0 lisinopril 5 mg Tablet 5 mg PO DAILY RF: 0 fenofibrate 54 mg tablet 54 mg PO DAILY 90 Days Qty: 90 RF: 1 atorvastatin 40 mg tablet 40 mg PO BEDTIME 90 Days Qty: 90 RF: 1 levothyroxine 175 mcg tablet 175 mcg PO DAILY 90 Days Qty: 90 RF: 3 Incruse Ellipta 62.5 mcg/actuation blister with device 1 inh inhalation DAILY 90 Days Qty: 90 RF: 1 Lactobacillus acidophilus [Acidophilus] Capsule 100 mg PO DAILY RF: 0 docusate sodium [Stool Softener] 100 mg capsule 100 mg PO DAILY RF: 0 Referrals: Mikey Villavicencio MD [Primary Care Provider] - 2 days Katheryn Devine MD [Physician] - 2 days Interventions: ED Discharge Assessment Last Done: 09/07/20 13:30 Discharge Date/Time: 09/07/20 13:30 Print Language: Mexican
[2020-09-07 10:50] LABS: MANUAL DIFF FLAG NO
[2020-09-07] MEDS: ondansetron HCL 4 MG/2 ML VIAL IVPUSH (10:50)
[2020-09-07] MEDS: 0.9 % Sodium Chloride 1,000 ML 999 ML IVCONT (10:51)
[2020-09-07] MEDS: Ketorolac Tromethamine 15 MG/ML VIAL IVPUSH (10:51)
--- NOTE | 2020-09-07 10:55 | PC.NURSE ---
IV inserted, labs obtained, and pt medicated for mild pain and nausea. Pt informed that she will be having a CT scan.
[2020-09-07 10:56] LABS: Basophils Absolute Auto 0.1 X10*3/uL (0.0-0.2); Basophils Percent Auto 0.7 % (0-2); Eosinophils Absolute Auto 0.1 X10*3/uL (0.0-0.4); Eosinophils Percent Auto 0.7 % (0-4); Hematocrit 41.7 % (37-47); Hemoglobin 13.9 g/dl (12.0-16.0); Imm Gran Abs Auto 0.05 X10*3/uL (0.00-0.03); Imm Gran Pct Auto 0.5 % (0.0-0.4); Lymphocytes Absolute Auto 1.3 X10*3/uL (1.2-4.9); Lymphocytes Percent Auto 12.4 % (20-40); Mean Corpuscular HGB Conc 33.3 g/dl (31.0-35.0); Mean Corpuscular Hemoglobin 30.8 pg (27.0-33.0); Mean Corpuscular Volume 92.5 fL (80-98); Mean Platelet Volume 9.3 fL (9.4-12.3); Monocytes Absolute Auto 0.5 X10*3/uL (0.1-1.2); Monocytes Percent Auto 4.5 % (2-11); Neutrophils Absolute Auto 8.2 X10*3/uL (2.0-8.3); Neutrophils Percent Auto 81.2 % (45-73); Platelet Count 320 X10*3/uL (160-400); Red Blood Count 4.51 X10*6/uL (4.20-5.50); Red Cell Distribution Width 12.1 % (11.0-16.0)
[2020-09-07 10:59] LABS: White Blood Count 10.1 X10*3/uL (4.8-10.8)
[2020-09-07 11:03] LABS: Prothrombin Time 11.8 SEC (9.9-13.0)
[2020-09-07] MEDS: diphenhydrAMINE HCL 50 MG/ML VIAL 25 MG IVPUSH (11:17)
[2020-09-07] MEDS: Metoclopramide HCl 10 MG/2 ML VIAL IVPUSH (11:18)
--- NOTE | 2020-09-07 11:29 | PC.NURSE ---
Pt was stating that she was still nauseated after the Zofran. PA aware, IV reglan and benedryl ordered/given.
[2020-09-07 11:30] LABS: Influenza A PCR NEGATIVE (Negative); Influenza B PCR NEGATIVE (Negative); Resp Syncy Virus RNA Qual PCR NEGATIVE (Negative); SARS COV2 PCR INHOUSE NEGATIVE (Negative)
[2020-09-07] MEDS: diphenhydrAMINE HCL 50 MG/ML VIAL IVPUSH (11:50)
[2020-09-07] MEDS: Prochlorperazine Edisylate 10 MG/2 ML VIAL IVPUSH (11:50)
--- NOTE | 2020-09-07 11:57 | PC.NURSE ---
Pt continues to c/o nausea. She is not vomiting. She was given benedryl and compazine at this time.
[2020-09-07 11:59] LABS: Alanine Aminotransferase 7 U/L (0-31); Albumin Level 4.1 g/dL (3.5-5.0); Alkaline Phosphatase 80 U/L (39-117); Anion Gap 19 (12-20); Aspartate Amino Transferase 14 U/L (5-31); Bilirubin Total 0.4 mg/dL (0.0-1.0); Blood Urea Nitrogen 14 mg/dL (9-16); Calcium 10.3 mg/dL (8.4-10.2); Carbon Dioxide 19 mmol/L (22-29); Chloride 105 mmol/L (96-108); Creatinine Clr Calc Pharmacy 82.6; Estimated Glomerular Filt Rate > 60; Glucose Random 148 mg/dL (60-115); Magnesium 1.7 mg/dL (1.6-2.6); Potassium 4.2 mmol/L (3.3-5.1); Sodium 139 mmol/L (135-145); Total Protein 6.3 g/dL (6.5-8.0)
[2020-09-07] MEDS: iohexoL 350 MG/ML 100 ML INFUS..BTL IV (12:37)
[2020-09-07 13:03] VITALS: BP 134/76; PULSE 89; RESP 20; TEMP 36.6; O2SAT 91
== END 2020-09-07 13:30 | disposition home or self-care (01) ==
PROVIDERS: Physician Assistant Medical; Emergency Provider Emergency Medicine Emergency Medical Services; PCP Internal Medicine
DX: R11.0 Nausea (principal); Z20.822 Contact with and (suspected) exposure to COVID-19; J44.9 Chronic obstructive pulmonary disease, unspecified; F17.210 Nicotine dependence, cigarettes, uncomplicated; E11.9 Type 2 diabetes mellitus without complications; I10 Essential (primary) hypertension; E78.5 Hyperlipidemia, unspecified; Z90.49 Acquired absence of other specified parts of digestive tract; Z79.84 Long term (current) use of oral hypoglycemic drugs; Z79.02 Long term (current) use of antithrombotics/antiplatelets; Z79.899 Other long term (current) drug therapy
CPT/HCPCS: 0241U; 36415; 71045; 74177; 80053; 82947; 83735; 85025; 85610; 93005; 96361; 96374; 96375; 96376; 99284; 99291; J1200; J1885; J2405; J2765; Q9967

== ENCOUNTER 2020-10-01 08:05 | Inpatient (IN) | payer MEDICARE, OTHER, SELFPAY ==
[2020-10-01] VITALS (21 sets, daily range): BP systolic 63–186; BP diastolic 39–127; PULSE 92–133; RESP 16–32; TEMP 36.6–37.1; O2SAT 92–99; BMI 31.4; BMI 32.7
--- NOTE | 2020-10-01 | ECG_ITS ---
Test Reason : SOB Blood Pressure : / mmHG Vent. Rate : 113 BPM Atrial Rate : 113 BPM P-R Int : 160 ms QRS Dur : 072 ms QT Int : 360 ms P-R-T Axes : 052 064 056 degrees QTc Int : 493 ms Sinus tachycardia Possible Left atrial enlargement Borderline ECG When compared with ECG of 07-SEP-2020 11:16, No significant change was found Referred By: Hermila Feng Electronically Signed By:QUINTON PRUITT
--- NOTE | ~2020-10-01 | XR_ITS ---
EXAMINATION: XR CHEST CLINICAL INFORMATION: OG tube and central line placement. COMPARISON: CT chest done earlier the same day. TECHNIQUE: Frontal view of the chest was obtained. FINDINGS: Endotracheal tube with its tip approximately 4.2 cm proximal to the loraine. Enterogastric tube with its tip beneath the left hemidiaphragm in the region of the gastric fundus. Right-sided central venous catheter in the region of the distal SVC. No airspace consolidation. No pleural effusion or pneumothorax. Stable cardiomediastinal silhouette. XR/XR chest 1V IMPRESSION: 1. Endotracheal tube with its tip approximately 4.2 cm proximal to the loraine. Enterogastric tube and right-sided central venous catheter in appropriate position. 2. No acute cardiopulmonary findings.
--- NOTE | ~2020-10-01 | CT_ITS ---
EXAMINATION: CT CERVICAL SPINE WITHOUT CONTRAST CLINICAL INFORMATION: Fall COMPARISON: Cervical spine MRI January 19, 2019 TECHNIQUE: Axial imaging was performed through the cervical spine. Reformatted coronal and sagittal images are provided for interpretation. This CT examination was performed using dose optimization techniques as appropriate, variously including the following: *Automated exposure control *Adjustment of mA and/or kV according to patient size (this includes techniques or standardized protocols for targeted exams where dose is matched to indication/reason for exam; i.e. extremities or head) *Use of iterative reconstruction technique DLP: 1580 mGy-cm FINDINGS: The cervical spine is visualized in its entirety. There is mildly exaggerated cervical lordosis. Alignment is otherwise within normal limits. Vertebral body heights are maintained. Disc spaces demonstrate only mild narrowing within the mid and lower cervical spine. Prominent bridging osteophytes are noted at C6/7 and T1/2. Mild to moderate facet hypertrophy which is most prominent on the left at the C4/5 level. Please see chest CT from earlier this evening for findings of the included upper mediastinum and lung apices. CT/CT cervical spine wo con IMPRESSION: Mild diffuse degenerative changes of the cervical spine, most prominent at the C4/5 level.
--- NOTE | ~2020-10-01 | CT_ITS ---
EXAMINATION: CT CHEST WITHOUT CONTRAST CLINICAL INFORMATION: Abdominal pain and chest pain COMPARISON: Previous chest x-ray most recent 09/07/[address] January 2020 TECHNIQUE: Multidetector volumetric CT imaging of the chest was done. Axial MIP volume rendering provided. Sagittal and coronal reformatted images were obtained. This CT examination was performed using dose optimization techniques as appropriate, variously including the following: *Automated exposure control *Adjustment of mA and/or kV according to patient size (this includes techniques or standardized protocols for targeted exams where dose is matched to indication/reason for exam; i.e. extremities or head) *Use of iterative reconstruction technique DLP: 386 mGy-cm FINDINGS: LUNGS: The small pulmonary nodules are stable. Largest pulmonary nodules measure 4 mm in the left lower lobe axial image 250 series 5 and 3 x 5 mm in the left upper lobe axial image 93 series 5. There is chronic scarring or subsegmental atelectasis seen at the right lung base in the right middle and right lower lobes. MEDIASTINUM: The thyroid gland may have been removed. The heart does not appear enlarged. There is a trace pericardial effusion or thickening that is stable. There is mild coronary artery calcification. The thoracic aorta is normal in caliber. There are no enlarged hilar or mediastinal lymph nodes. PLEURA: There is no pleural effusion. No pleural mass or thickening. AXILLA: No lymphadenopathy. OSSEOUS STRUCTURES: There are degenerative changes of the spine with ossification of the anterior longitudinal ligament.. CT/CT chest wo con IMPRESSION: Stable small pulmonary nodules from January 2020. No evidence for acute disease in the chest.
--- NOTE | ~2020-10-01 | CT_ITS ---
EXAMINATION: CT HEAD WITHOUT CONTRAST CLINICAL INFORMATION: Change in mental status COMPARISON: Head CT January 16, 2020 TECHNIQUE: Contiguous axial imaging was performed from the skull base to vertex without intravenous administration of contrast. This CT examination was performed using dose optimization techniques as appropriate, variously including the following: *Automated exposure control *Adjustment of mA and/or kV according to patient size (this includes techniques or standardized protocols for targeted exams where dose is matched to indication/reason for exam; i.e. extremities or head) *Use of iterative reconstruction technique DLP: 901 mGy-cm FINDINGS: There is no evidence of acute intracranial hemorrhage or territorial infarction. No abnormal mass effect or midline shift is seen. Barron to white matter differentiation is well preserved. No extra-axial fluid collections are identified. The ventricles are normal in size. There is no abnormal attenuation within the brain parenchyma. The osseous structures and soft tissues are normal. The mastoid air cells and visualized portions of the paranasal sinuses are well aerated. CT/CT head/brain wo con IMPRESSION: No acute intracranial pathology.
--- NOTE | ~2020-10-01 | CT_ITS ---
EXAMINATION: CT ABDOMEN AND PELVIS WITHOUT CONTRAST CLINICAL INFORMATION: Abdominal pain. Elevated lipase. Evaluate for pancreatitis. COMPARISON: Previous CT scan most recent 09/07/2020 TECHNIQUE: Multidetector volumetric imaging was performed from the superior aspect of the liver through the pubic symphysis. Sagittal and coronal reformatted images were obtained on the technologist's workstation. This CT examination was performed using dose optimization techniques as appropriate, variously including the following: *Automated exposure control *Adjustment of mA and/or kV according to patient size (this includes techniques or standardized protocols for targeted exams where dose is matched to indication/reason for exam; i.e. extremities or head) *Use of iterative reconstruction technique DLP: 904 mGy-cm FINDINGS: LIVER, GALLBLADDER, AND BILIARY TREE: The liver is normal in size, shape, and attenuation. No focal hepatic lesion or biliary ductal dilatation is present. The gallbladder has been removed. There is a new small amount of ascites seen adjacent to the liver. PANCREAS: There is enlargement of the pancreas, stranding of the surrounding fat and a small amount of peripancreatic fluid seen anterior to the pancreas in the lesser sac region and along the bilateral pararenal spaces, and bilateral paracolic gutters suggestive of acute pancreatitis. This is new or increased from 09/07/2020. SPLEEN: Unremarkable. ADRENAL GLANDS: There is a 1 x 3 cm left adrenal nodule that is stable. The right adrenal gland is normal. KIDNEYS AND URETERS: There is a 1 cm high attenuation lesion exophytic to the upper pole of the left kidney probably representing a hyperdense. The kidneys are otherwise unremarkable. BLADDER: Unremarkable. GASTROINTESTINAL TRACT: There is mild diverticulosis of the colon. Small and large bowel is otherwise unremarkable. The appendix is not seen. ABDOMINAL WALL: No significant hernia is appreciated. LYMPH NODES: Normal. VASCULAR: Unremarkable. PELVIC VISCERA: Uterus and adnexa are unremarkable. There is a new small amount of fluid in the pelvis. OSSEOUS STRUCTURES: There is scoliosis and degenerative changes of the spine. CT/CT abdomen pelvis wo con IMPRESSION: New enlargement of the pancreas, stranding of the surrounding fat and small amount of surrounding fluid suggestive of acute pancreatitis. This is new or increased from 09/07/2020 exam. Small amount of ascites.
[2020-10-01] MEDS: diphenhydrAMINE HCL 50 MG/ML VIAL IVPUSH (12:50)
[2020-10-01] MEDS: Ketorolac Tromethamine 15 MG/ML VIAL IVPUSH (12:50)
[2020-10-01] MEDS: Metoclopramide HCl 10 MG/2 ML VIAL IVPUSH (12:50)
[2020-10-01] MEDS: 0.9 % Sodium Chloride 1,000 ML 999 ML IV ×2 (12:51→13:32)
[2020-10-01 12:53] LABS: Basophils Absolute Auto 0.1 X10*3/uL (0.0-0.2); Basophils Percent Auto 0.3 % (0-2); Hematocrit 51.3 % (37-47); Hemoglobin 16.7 g/dl (12.0-16.0); Imm Gran Abs Auto 0.33 X10*3/uL (0.00-0.03); Lymphocytes Absolute Auto 0.8 X10*3/uL (1.2-4.9); Lymphocytes Percent Auto 2.4 % (20-40); MANUAL DIFF FLAG SCAN; Mean Corpuscular HGB Conc 32.6 g/dl (31.0-35.0); Mean Corpuscular Volume 95.2 fL (80-98); Mean Platelet Volume 9.6 fL (9.4-12.3); Monocytes Absolute Auto 1.4 X10*3/uL (0.1-1.2); Monocytes Percent Auto 4.2 % (2-11); NRBC Pct Auto 0.1 /100WBC (0.0-0.2); Neutrophils Absolute Auto 29.3 X10*3/uL (2.0-8.3); Neutrophils Percent Auto 92.1 % (45-73); Platelet Count 377 X10*3/uL (160-400); Red Blood Count 5.39 X10*6/uL (4.20-5.50); Red Cell Distribution Width 13.2 % (11.0-16.0); SCAN SMEAR FLAG 1
[2020-10-01 12:58] LABS: Glucose Urine UA 100 MG/DL (NEG); Leukocyte Esterase Urine NEG (NEG); Nitrite Urine NEG (NEG); PH 5.5 (5.0-8.0); Specific Gravity - Urine >= 1.030 (1.005-1.025); Urine Blood NEG (NEG); Urine Ketones NEG (NEG); Urine Protein 1+ MG/DL (NEG-TRACE)
[2020-10-01 13:00] LABS: Appearance Urine HAZY; Color Urine YELLOW
[2020-10-01 13:06] LABS: White Blood Count 31.9 X10*3/uL (4.8-10.8)
[2020-10-01 13:12] LABS: Amorphous Sediment Urine 1+ /LPF; Bacteria Urine TRACE /LPF; RBC Urine 0 /HPF (0); Squamous Epithelial Cell Urine 1+ /LPF; WBC Urine 0 /HPF (0-4)
[2020-10-01 13:29] LABS: SLIDE REVIEW VERIFIED
[2020-10-01 13:32] LABS: Alanine Aminotransferase 94 U/L (0-31); Albumin Level 4.4 g/dL (3.5-5.0); Alkaline Phosphatase 91 U/L (39-117); Anion Gap 25 (12-20); Aspartate Amino Transferase 109 U/L (5-31); Bilirubin Total 0.9 mg/dL (0.0-1.0); Blood Urea Nitrogen 21 mg/dL (9-16); Carbon Dioxide 16 mmol/L (22-29); Chloride 98 mmol/L (96-108); Creatinine Clr Calc Pharmacy 30.2; Estimated Glomerular Filt Rate 24; Glucose Random 201 mg/dL (60-115); Sodium 135 mmol/L (135-145)
[2020-10-01 13:54] LABS: Lipase 3935 U/L (8-78)
[2020-10-01 14:26] LABS: Acetaminophen LAB 3 mcg/mL (<30)
--- NOTE | 2020-10-01 15:15 | PC.NURSE ---
pérez holloway sister hcp, reports [place] 3 yrs ago
--- NOTE | 2020-10-01 15:22 | ED_ITS ---
HPI - General Adult General Chief complaint: General Medical Stated complaint: OD ON PILLS Time Seen by Provider: 10/01/20 11:15 Source: patient Mode of arrival: EMS Limitations: no limitations History of Present Illness HPI narrative: 64-year-old female who presents emergency department for evaluation of abdominal pain, nausea, vomiting and unintentional overdose Percocet. The patient states that on Wednesday (4 days prior to evaluation) she developed severe abdominal pain. She states the pain was a constant, severe, sharp pain located throughout her entire abdomen. She states that she had associated nausea and vomiting. She states that she has vomited approximately 6-7 times per day and has not been able to eat or drink. The patient has a history of polymyalgia rheumatica (PMR) and she takes Percocet for her pain. She states that she took 60 Percocets (5/325) on Wednesday with no relief for pain. She states that she is continuing to have lower abdominal pain which is 9/10 at its worst. She is feeling weak, dizzy and lightheaded. She denied change in her bowel movements. She states that she feels short of breath but this is a chronic thing for her secondary to her COPD. She denied frequency, urgency or dysuria. Related Data Home Medications Medication Instructions Recorded Confirmed Cosentyx Pen (2 Pens) 2 syringe SUBCUT Q4W 01/16/20 08/27/20 aspirin 81 mg PO DAILY 01/16/20 08/27/20 lisinopril 5 mg PO DAILY 01/16/20 08/27/20 metformin 500 mg PO BID 01/16/20 08/27/20 Lactobacillus acidophilus 100 mg PO DAILY 01/25/20 08/27/20 docusate sodium 100 mg capsule 100 mg PO DAILY 01/25/20 08/27/20 venlafaxine 100 mg tablet 100 mg PO BID 06/07/20 08/27/20 mirtazapine 15 mg PO BEDTIME 08/15/20 08/27/20 triamterene-hydrochlorothiazid 1 cap PO DAILY 08/15/20 08/27/20 oxycodone-acetaminophen 5 mg-325 1 tab PO BID-TID PRN tab 09/25/20 mg tablet Previous Rx's Medication Instructions Recorded buspirone 15 mg tablet 15 mg PO BID 90 Days #180 tab 12/29/19 atorvastatin 40 mg tablet 40 mg PO BEDTIME 90 Days #90 tab 03/28/20 fenofibrate 54 mg tablet 54 mg PO DAILY 90 Days #90 tab 03/28/20 levothyroxine 175 mcg tablet 175 mcg PO DAILY 90 Days #90 tab 06/27/20 umeclidinium 62.5 mcg/actuation 1 inh INHALATION DAILY 90 Days #90 06/27/20 blister powder for inhalation cap albuterol sulfate 90 mcg/actuation 2 puff PO QID #8.5 g 08/04/20 aerosol inhaler gabapentin 300 mg capsule 300 mg PO TID #270 cap 08/06/20 ondansetron 4 mg TRANSLINGUAL TIDAC #45 tab 08/17/20 pantoprazole 40 mg PO DAILY 90 Days #90 tab 08/17/20 lorazepam 1 mg tablet 1 mg PO BID PRN 30 Days #60 tab 08/30/20 promethazine 25 mg tablet 25 mg PO TID PRN 7 Days #21 tab 08/30/20 diphenhydramine HCl 25 mg tablet 50 mg PO TID PRN #10 tab 09/18/20 metoclopramide HCl 10 mg tablet 10 mg PO Q6H PRN #14 tab 09/18/20 ondansetron HCl 4 mg tablet 4 mg PO Q8H PRN #14 tab 09/18/20 Allergies Allergy/AdvReac Type Severity Reaction Status Date / Time codeine [Codeine] AdvReac Unknown VOMITING Verified 08/27/20 10:48 absorbable sutures Allergy Unknown Unknown Uncoded 08/27/20 10:48 Cat/Feline Product Allergy Unknown SWELLING,INFECTION Uncoded 08/27/20 10:48 Derivatives AT SITE WITH CAT GUT SUTURES dissolving stitches Allergy Unknown Unknown Uncoded 08/27/20 10:48 Review of Systems Review of Systems: Yes all other systems are reviewed and are negative PMFSH Past Medical History Source: unable to obtain Medical History Acquired hypothyroidism Anxiety Asthma Cervical radiculopathy due to degenerative joint disease of spine COPD (chronic obstructive pulmonary disease) Depression Diabetes Diabetes mellitus Fibromyalgia GERD (gastroesophageal reflux disease) Graves' disease Hypertension Hypertriglyceridemia Hypothyroid Intermittent diarrhea Intractable nausea and vomiting Iron deficiency anemia Lipoprotein deficiencies Lumbar degenerative disc disease Mixed hyperlipidemia Nausea and vomiting Obesity (BMI 30-39.9) Polymyalgia rheumatica Psoriatic arthritis Smoker Surgical History History of left breast biopsy History of thyroid surgery History of thyroidectomy History of tonsillectomy and adenoidectomy Hx of cholecystectomy Family History Family History Father Cancer Emphysema of lung Heart disease Social History Social History Household Members: None Housing: House Do you presently have visiting nurse or other home services: No Alcohol intake: never Patient Tobacco Use Status: Current everyday Tobacco user Cigarette Packs Per Day: 2 Cigarettes Per Day: 40.0 Years Smoked: 40 Use of substances other than those prescribed or required for medical reasons: No Advance Directives: Yes Advance Directives on File: Yes Advance Directives Date on File: 07/31/20 service: No Current occupational status: retired Physical Exam Vital Signs: Vital Signs: Last Vital Signs Temp 97.9 F 10/01/20 16:04 Pulse 112 H 10/01/20 16:04 Resp 28 H 10/01/20 16:04 BP 111/50 L 10/01/20 16:04 Pulse Ox 95 10/01/20 16:04 Oxygen Flow Rate 2 10/01/20 09:10 Body Mass Index 31.4 Const: Other: Awake, alert, female, very pleasant and cooperative, appears to be in mild distress secondary to her abdominal pain, answers all questions appropriately. HENMT: Head: Yes normal to inspection, Yes normocephalic and Yes atraumatic Ears: external ears normal General nose exam: Normal external nose present Face and sinus: Yes normal facial exam Mouth: other (Dry mucous membranes) Throat: Yes posterior oropharynx normal Eyes: General: appearance normal, both eyes and all related structures Barbara orbital: periorbital findings normal Eyelids: Yes eyelids normal Conjunctivae: conjunctivae normal Sclerae: sclerae normal Corneas: corneas normal Pupils: Equal, round and reactive pupils present Direct Ophthalmoscopy: normal light reflex Neck: Neck: Yes full ROM, Yes no lymphadenopathy, Yes no meningeal signs, Yes trachea midline and Yes supple Lymphatic: no lymphadenopathy noted Chest: Chest palpation & inspection: normal inspection of the chest and normal palpation of entire chest wall Resp: Effort & Inspection: normal respiratory effort and able to speak in complete sentences Auscultation: clear to auscultation bilaterally Cardio: Rate: regular rate Rhythm: regular rhythm Heart sounds: S1 normal heart sound present, S2 normal heart sound present and no murmurs GI: Inspection: Yes normal to inspection Palpation (GI): Soft to palpation, Tenderness to palpation present (GI) in the LLQ (Moderate), in the RLQ (Moderate) and suprapubicly (Moderate), no guarding, not rigid and No hepatosplenomegaly present Auscultation: normal bowel sounds : General: Yes no CVA tenderness Back/Spine/Pelvis: Back: no CVA tenderness Cervical Spine: normal cervical lordosis Thoracic/Lumbar Spine: thoracic and lumbar spine normal to inspectio n Skin: General skin exam: no rashes or lesions noted Lesions: no lesions Rashes: no rashes Wounds: no wounds Neuro: General: no meningeal signs Cranial nerves: Yes CN's II-XII intact bilaterally and Yes Equal, round and reactive pupils present Cognition (Neuro): normal cognition Motor exam (neuro): 5/5 motor strength present throughout Extrem: General: Yes normal to inspection and Yes full ROM Psych: Appearance: well kempt Mental Status: mental status grossly normal Speech and movement: Normal speech and movement present Affect: normal af fect Attitude: cooperative Thought process: Normal thought process present Thought content: Normal thought content present Course Course Course Narrative: 64-year-old female who presents emergency department for evaluation of abdominal pain, nausea, vomiting, weakness and an unintentional overdose of Percocet 5/325. Vital signs revealed elevated blood pressure of 149/82, elevated pulse of 109. Patient's physical examination did reveal lower abdominal tenderness otherwise was unremarkable. Patient was ordered to get Dilaudid 1 mg IV and normal saline IV x3 L. 1626: Laboratory evaluation revealed an elevated WBC 31,900, elevated H&H of 16.3 and 51.3. The patient also had an elevated BUN creatinine of 21 and 2.0. I suspect these elevations are secondary to hemoconcentration and not related to infectious process. Patient's AST and ALT were elevated at 109 and 95. Lipase was markedly elevated at 3935. Acetaminophen level was 3. PT/INR were normal at 11.8 and 1.0. Given these findings, I suspect that the patient may have had acute pancreatitis as the cause of her pain that then led her to take the on intentional Percocet overdose. I did discuss the patient's presentation with Poison Control. Given the abnormal LFTs they felt that the patient should be given Acetadote and I did order the loading dose and the 2nd and 3rd doses as well. I did discuss the patient's presentation with the wireless manager, Dr. Stringer. After this discussion the patient had the following tests ordered, triglyceride levels, PTT, CK, CT scan of the chest, abdomen pelvis without IV contrast. Twelve lead EKG was obtained and the patient had a prolonged QTC interval of 493 milliseconds otherwise was unremarkable. The patient will be admitted to the intensive care unit for further management. Medical Decision Making Lab Data Result diagrams: 10/01/20 12:47 10/01/20 12:47 Labs: Lab Results 10/01/20 10/01/20 10/01/20 Range/Units 12:47 12:47 12:47 WBC 31.9 H* (4.8-10.8) X10*3/uL RBC 5.39 (4.20-5.50) X10*6/uL Hgb 16.7 H D (12.0-16.0) g/dl Hct 51.3 H D (37-47) % MCV 95.2 (80-98) fL MCH 31.0 (27.0-33.0) pg MCHC 32.6 (31.0-35.0) g/dl RDW 13.2 (11.0-16.0) % Plt Count 377 (160-400) X10*3/uL MPV 9.6 (9.4-12.3) fL Immature Gran % (Auto) 1.0 H (0.0-0.4) % Neut % (Auto) 92.1 H (45-73) % Lymph % (Auto) 2.4 L (20-40) % [place] % (Auto) 4.2 (2-11) % Eos % (Auto) 0.0 (0-4) % Baso % (Auto) 0.3 (0-2) % Lymph # (Auto) 0.8 L (1.2-4.9) X10*3/uL [place] # (Auto) 1.4 H (0.1-1.2) X10*3/uL Eos # (Auto) 0.0 (0.0-0.4) X10*3/uL Baso # (Auto) 0.1 (0.0-0.2) X10*3/uL Abs Immat Gran (auto) 0.33 H (0.00-0.03) X10*3/uL Absolute Neuts (auto) 29.3 H (2.0-8.3) X10*3/uL Absolute Nucleated RBC 0.020 H (0.0-0.012) X10*3/uL Nucleated RBC % (auto) 0.1 (0.0-0.2) /100WBC Smear Tech's Comments VERIFIED Sodium 135 (135-145) mmol/L Potassium 4.0 (3.3-5.1) mmol/L Chloride 98 (96-108) mmol/L Carbon Dioxide 16 L (22-29) mmol/L Anion Gap 25 H (12-20) BUN 21 H (9-16) mg/dL Creatinine 2.08 H (0.5-1.4) mg/dL Estim Creat Clear Calc 30.2 Estimated GFR 24 Random Glucose 201 H D (60-115) mg/dL Calcium 10.0 (8.4-10.2) mg/dL Total Bilirubin 0.9 (0.0-1.0) mg/dL AST 109 H (5-31) U/L ALT 94 H (0-31) U/L Alkaline Phosphatase 91 (39-117) U/L Total Creatine Kinase 160 H D (26-140) U/L Total Protein 7.0 (6.5-8.0) g/dL Albumin 4.4 (3.5-5.0) g/dL Triglycerides 145 mg/dL Lipase 3935 H (8-78) U/L Urine Color YELLOW Urine Appearance HAZY Urine pH 5.5 (5.0-8.0) Ur Specific [place] >= 1.030 H (1.005-1.025) Urine Protein 1+ H (NEG-TRACE) MG/DL Urine Glucose (UA) 100 H (NEG) MG/DL Urine Ketones NEG (NEG) MG/DL Urine Blood NEG (NEG) Urine Nitrite NEG (NEG) Ur Leukocyte Esterase NEG (NEG) Urine RBC 0 (0) /HPF Urine WBC 0 (0-4) /HPF Ur Squamous Epith Cells 1+ /LPF Amorphous Sediment 1+ /LPF Urine Bacteria TRACE /LPF Acetaminophen (<30) mcg/mL 10/01/20 Range/Units 13:45 WBC (4.8-10.8) X10*3/uL RBC (4.20-5.50) X10*6/uL Hgb (12.0-16.0) g/dl Hct (37-47) % MCV (80-98) fL MCH (27.0-33.0) pg MCHC (31.0-35.0) g/dl RDW (11.0-16.0) % Plt Count (160-400) X10*3/uL MPV (9.4-12.3) fL Immature Gran % (Auto) (0.0-0.4) % Neut % (Auto) (45-73) % Lymph % (Auto) (20-40) % [place] % (Auto) (2-11) % Eos % (Auto) (0-4) % Baso % (Auto) (0-2) % Lymph # (Auto) (1.2-4.9) X10*3/uL [place] # (Auto) (0.1-1.2) X10*3/uL Eos # (Auto) (0.0-0.4) X10*3/uL Baso # (Auto) (0.0-0.2) X10*3/uL Abs Immat Gran (auto) (0.00-0.03) X10*3/uL Absolute Neuts (auto) (2.0-8.3) X10*3/uL Absolute Nucleated RBC (0.0-0.012) X10*3/uL Nucleated RBC % (auto) (0.0-0.2) /100WBC Smear Tech's Comments Sodium (135-145) mmol/L Potassium (3.3-5.1) mmol/L Chloride (96-108) mmol/L Carbon Dioxide (22-29) mmol/L Anion Gap (12-20) BUN (9-16) mg/dL Creatinine (0.5-1.4) mg/dL Estim Creat Clear Calc Estimated GFR Random Glucose (60-115) mg/dL Calcium (8.4-10.2) mg/dL Total Bilirubin (0.0-1.0) mg/dL AST (5-31) U/L ALT (0-31) U/L Alkaline Phosphatase (39-117) U/L Total Creatine Kinase (26-140) U/L Total Protein (6.5-8.0) g/dL Albumin (3.5-5.0) g/dL Triglycerides mg/dL Lipase (8-78) U/L Urine Color Urine Appearance Urine pH (5.0-8.0) Ur Specific [place] (1.005-1.025) Urine Protein (NEG-TRACE) MG/DL Urine Glucose (UA) (NEG) MG/DL Urine Ketones (NEG) MG/DL Urine Blood (NEG) Urine Nitrite (NEG) Ur Leukocyte Esterase (NEG) Urine RBC (0) /HPF Urine WBC (0-4) /HPF Ur Squamous Epith Cells /LPF Amorphous Sediment /LPF Urine Bacteria /LPF Acetaminophen 3 (<30) mcg/mL ECG Data Interpretation: 1559: Sinus tachycardia with a rate of 113, normal [place] interval, QRS interval and prolonged QTC interval of [address] segment elevation, no ST segment depression, no PACs, no PVCs. Critical Care Time Critical Care Time Critical Care Time: Yes Total Critical Care Time: 55 Attestation: Critical Care: The patient was critically ill with a high probability of imminent or life threatening deterioration. I spent greater than 30 minutes of discontinuous time evaluating the patient,delivering critical care at the bedside, discussing and evaluating pertinent data with consultants. Critical care time does not include time spent performing separately billable procedures or teaching. Total time spent performing critical care was 55 minute s. Discharge Plan Discharge Clinical Impression: Acute dehydration Acute pancreatitis Qualifiers: Pancreatitis type: other Acute pancreatitis complication: unspecified Qualified Code(s): K85.80 - Other acute pancreatitis without necrosis or infection Acetaminophen overdose Qualifiers: Encounter type: initial encounter Injury intent: accidental or unintentional Qualified Code(s): T39.1X1A - Poisoning by 4-Aminophenol derivatives, accidental (unintentional), initial encounter Patient Disposition: Admitted As Inpatient
[2020-10-01] MEDS: HYDROmorphone HCl 1 MG/ML SYRINGE IVPUSH (15:57)
--- NOTE | 2020-10-01 15:58 | PC.NURSE ---
PT AMBULATED TO BATHROOM WITH THIS RN'S ASSISTANCE, WE HAVE NUMEROUS TIMES SINCE HER ARRIVAL TO THE ED. PT VOIDED, CHANGED INTO HOSPITAL ATTIRE, THEN BECAME DIZZY AND WEAK UPON RETURN TO HER BED. THIS RN LOWERED PT TO THE FLOOR AND REQUIRED ASSISTANCE BACK INTO STRETCHER. PT IN SINUS TACH ON MONITOR AT THIS TIME, TACHYPNEIC BUT ALERT AND ORIENTED. C/O ONGOING BILAT RIB PAIN. PT DENIES RECENT PERCOCET CONSUMPTION WAS AN ATTEMPT TO END HER LIFE, DENIES SI AT THIS TIME. REPORTS TAKING ALL OTHER MEDICATION ORDERED AT HOME. SISTER REPORTS SHE LIVES IN [place], NEVER LEAVING HER CHAIR, SUGGESTS CRISIS CONSULT.
[2020-10-01 16:02] LABS: Triglycerides 145 mg/dL
--- NOTE | 2020-10-01 16:24 | P.HPCC_ITS ---
History of Present Illness Date of Service: 10/01/20 Chief Complaint: Abdominal pain 64-year-old female with background history of psoriatic arthritis and polymyalgia rheumatica not apparently on steroids on her list but is a type 2 [id number] diabetic as well as a replaced hypothyroid who said that 3 days ago she took what amounted to 60 tabs of Percocet which should theoretically give us 20 g of acetaminophen ingestion and we only have very mild transaminitis and were awaiting so is his coagulation studies etc. to evaluate hepatic function including ammonia level but at this point acetaminophen level is 3 and were presumably 72 hours out if that is the case and it would appear that were late in terms of the N-acetylcysteine therapy By the numbers she has a positive anion gap metabolic acidosis there is a lactic acid that is pending with markedly elevated lipase so this thus far appears to be an sirs but not apparently septic; however, in light of how sick she is but cultures should be obtained and will evaluate the image of her biliary system to be sure that this is not part and parcel of a cholangitis picture in which case we would have to cover with antibiotics but thus far I believe this is on the basis of pancreatitis with an etiology did needs to be determined It appears that were of far enough out at 72 hours where we the elevated liver function may be the worst that were seeing and she might have been over estimating the dose that she took but if signs of liver function are okay in terms of no coagulopathy and normal ammonia level etc. at this point we do not have to worry about her developing acute hepatic failure She has got very severe diffuse abdominal pain on minimal palpation with diffuse guarding but no distinct rebound and my review of the CT scan of her abdomen shows no free air and no pneumatosis but significant stranding surrounding the pancreas and a surgically absent gallbladder and very small amount of ascites noted as well Chest is clear except for emphysema and very significant the pericardial fat pad but no effusion Bedside echo very difficult to visualize because of her discomfort but it appears to be I hyperdynamic left ventricle right ventricle is not well observed Review of Systems 2 Review of Systems: She noted shaking chills and she said diarrhea yesterday but no bowel movement in the last 24 hours and she has had significant vomiting and only holding down a portion of what she attempts to eat and drink Yes all other systems are reviewed and are negative [facility] Past Medical History Medical History Acquired hypothyroidism Anxiety Asthma Cervical radiculopathy due to degenerative joint disease of spine COPD (chronic obstructive pulmonary disease) Depression Diabetes Diabetes mellitus Fibromyalgia GERD (gastroesophageal reflux disease) Graves' disease Hypertension Hypertriglyceridemia Hypothyroid Intermittent diarrhea Intractable nausea and vomiting Iron deficiency anemia Lipoprotein deficiencies Lumbar degenerative disc disease Mixed hyperlipidemia Nausea and vomiting Obesity (BMI 30-39.9) Polymyalgia rheumatica Psoriatic arthritis Smoker Family History Family History Father Cancer Emphysema of lung Heart disease Surgical History Surgical History History of left breast biopsy History of thyroid surgery History of thyroidectomy History of tonsillectomy and adenoidectomy Hx of cholecystectomy Social History Social History Household Members: None Housing: House Do you presently have visiting nurse or other home services: No Alcohol intake: never Patient Tobacco Use Status: Current everyday Tobacco user Cigarette Packs Per Day: 2 Cigarettes Per Day: 40.0 Years Smoked: 40 Use of substances other than those prescribed or required for medical reasons: No Advance Directives: Yes Advance Directives on File: Yes Advance Directives Date on File: 07/31/20 service: No Current occupational status: retired Meds Allergies Allergy/AdvReac Type Severity Reaction Status Date / Time codeine [Codeine] AdvReac Unknown VOMITING Verified 08/27/20 10:48 absorbable sutures Allergy Unknown Unknown Uncoded 08/27/20 10:48 Cat/Feline Product Allergy Unknown SWELLING,INFECTION Uncoded 08/27/20 10:48 Derivatives AT SITE WITH CAT GUT SUTURES dissolving stitches Allergy Unknown Unknown Uncoded 08/27/20 10:48 Active Medications: Current Medications Generic Name Dose Route Start Last Admin Trade Name Freq PRN Reason Stop Dose Admin Acetylcysteine 8,800 mg/ 1,044 mls @ 62.487 mls/hr 10/01/20 22:00 Dextrose IV 10/02/20 14:42 ONCE ONE Acetylcysteine 13,000 mg/ 265 mls @ 198.999 mls/hr 10/01/20 15:41 Dextrose IV 10/01/20 17:00 ONCE ONE Acetylcysteine 4,400 mg/ 522 mls @ 124.972 mls/hr 10/01/20 18:00 Dextrose IV 10/01/20 22:10 ONCE ONE Potassium Chloride/Dextrose/Sod Cl 20 meq in 1,000 mls @ 80 mls/hr 10/01/20 16:30 IVCONT .[id number] [facility] Insulin Human Lispro 0 unit 10/01/20 16:30 Insulin Lispro 100 Unit/Ml 3 Ml Vial SUBCUT 10/02/20 16:20 Q6H [facility] Protocol Levothyroxine Sodium 87.5 mcg 10/02/20 09:00 Levothyroxine Sodium 100 Mcg/5 Ml Vial IVPUSH DAILY [facility] Home Medications Medication Instructions Recorded Confirmed Last Taken Type Cosentyx Pen (2 Pens) 2 syringe SUBCUT Q4W 01/16/20 10/01/20 07/18/20 History metformin 500 mg PO BID 01/16/20 10/01/20 08/14/20 History mirtazapine 15 mg PO BEDTIME 08/15/20 10/01/20 08/14/20 History triamterene-hydrochlorothiazid 1 cap PO DAILY 08/15/20 10/01/20 08/14/20 History oxycodone-acetaminophen 5 mg-325 1 tab PO BID-TID PRN tab 09/25/20 10/01/20 Unknown History mg tablet lisinopril 1 tab PO DAILY 10/01/20 10/01/20 Unknown History naproxen 1 tab PO DAILY 10/01/20 10/01/20 Unknown History pantoprazole 1 tab PO BID 10/01/20 10/01/20 Unknown History prednisone 1 tab PO DAILY 10/01/20 10/01/20 Unknown History prednisone 2.5 mg PO DAILY 10/01/20 10/01/20 Unknown History Physical Exam Vital Signs: Vital Signs: Last Vital Signs Temp 97.9 F 10/01/20 16:04 Pulse 112 H 10/01/20 16:04 Resp 28 H 10/01/20 16:04 BP 111/50 L 10/01/20 16:04 Pulse Ox 95 10/01/20 16:04 Oxygen Flow Rate 2 10/01/20 09:10 Body Mass Index 31.4 She is awake and alert and she is oriented but she is a little confused in the timing of her history and nonfocal neurologically Cardiac exam hyperdynamic by echo with no neck vein distension and good bilateral carotid upstrokes which are brisk Diminished bilateral breath sounds and no adventitious sounds and no accessory muscle use Abdomen is I described with absent bowel sounds diffuse tenderness but no organomegaly Peripherally no livedo and no acrocyanosis and no edema with good bilateral peripheral pulses Results Labs CBC and Chem 7: 10/01/20 12:47 10/01/20 12:47 Labs: Laboratory Results - last 24 hr 10/01/20 10/01/20 10/01/20 12:47 12:47 12:47 MCV 95.2 MCH 31.0 MCHC 32.6 RDW 13.2 Plt Count 377 MPV 9.6 Immature Gran % (Auto) 1.0 H Neut % (Auto) 92.1 H Lymph % (Auto) 2.4 L [place] % (Auto) 4.2 Eos % (Auto) 0.0 Baso % (Auto) 0.3 Lymph # (Auto) 0.8 L [place] # (Auto) 1.4 H Eos # (Auto) 0.0 Baso # (Auto) 0.1 Abs Immat Gran (auto) 0.33 H Absolute Neuts (auto) 29.3 H Absolute Nucleated RBC 0.020 H Nucleated RBC % (auto) 0.1 Smear Tech's Comments VERIFIED Anion Gap 25 H Estim Creat Clear Calc 30.2 Estimated GFR 24 Random Glucose 201 H D Calcium 10.0 Total Bilirubin 0.9 AST 109 H ALT 94 H Alkaline Phosphatase 91 Total Creatine Kinase 160 H D Total Protein 7.0 Albumin 4.4 Triglycerides 145 Lipase 3935 H Urine Color YELLOW Urine Appearance HAZY Urine pH 5.5 Ur Specific [place]ft >= 1.030 H Urine Protein 1+ H Urine Glucose (UA) 100 H Urine Ketones NEG Urine Blood NEG Urine Nitrite NEG Ur Leukocyte Esterase NEG Urine RBC 0 Urine WBC 0 Ur Squamous Epith Cells 1+ Amorphous Sediment 1+ Urine Bacteria TRACE Acetaminophen 10/01/20 13:45 MCV MCH MCHC RDW Plt Count MPV Immature Gran % (Auto) Neut % (Auto) Lymph % (Auto) Hudspeth % (Auto) Eos % (Auto) Baso % (Auto) Lymph # (Auto) Hudspeth # (Auto) Eos # (Auto) Baso # (Auto) Abs Immat Gran (auto) Absolute Neuts (auto) Absolute Nucleated RBC Nucleated RBC % (auto) Smear Tech's Comments Anion Gap Estim Creat Clear Calc Estimated GFR Random Glucose Calcium Total Bilirubin AST ALT Alkaline Phosphatase Total Creatine Kinase Total Protein Albumin Triglycerides Lipase Urine Color Urine Appearance Urine pH Ur Specific [place] Urine Protein Urine Glucose (UA) Urine Ketones Urine Blood Urine Nitrite Ur Leukocyte Esterase Urine RBC Urine WBC Ur Squamous Epith Cells Amorphous Sediment Urine Bacteria Acetaminophen 3 Assessment and Plan (1) Acute pancreatitis: Qualifiers: Acute pancreatitis complication: unspecified Pancreatitis type: other Qualified Code(s): K85.80 - Other acute pancreatitis without necrosis or infection Status: Acute (2) Acetaminophen overdose: Qualifiers: Encounter type: initial encounter Injury intent: accidental or unintentional Qualified Code(s): T39.1X1A - Poisoning by 4-Aminophenol derivatives, accidental (unintentional), initial encounter Status: Acute (3) Acute dehydration: Status: Acute (4) COPD (chronic obstructive pulmonary disease): Qualifiers: COPD type: unspecified COPD Qualified Code(s): J44.9 - Chronic obstructive pulmonary disease, unspecified Status: Acute (5) Intermittent diarrhea: Status: Acute (6) Nausea and vomiting: Qualifiers: Vomiting type: unspecified Vomiting Intractability: unspecified Qualified Code(s): R11.2 - Nausea with vomiting, unspecified Status: Acute (7) Diabetes mellitus: Qualifiers: Diabetes mellitus type: type 2 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 use: without chcf use Diabetes mellitus complication status: without complication Qualified Code(s): E11.9 - Type 2 diabetes mellitus without complications Status: Acute (8) Mixed hyperlipidemia: Status: Acute (9) Acquired hypothyroidism: Status: Acute (10) Obesity (BMI 30-39.9): Status: Acute (11) Smoker: Status: Acute (12) Polymyalgia rheumatica: Status: Acute (13) Psoriatic arthritis: Status: Acute (14) GERD (gastroesophageal reflux disease): Status: Acute (15) SIRS (systemic inflammatory response syndrome): Status: Acute She has received 2 L of IV fluid and she is on maintenance IV with normal blood pressure and thus far no urine output awaiting Scott catheter placement for fluid management and she will be cultured but I believe this is all acute pancreatitis but this no evidence of distended biliary system and the gallbladder surgically removed and is no hypertriglyceridemia but I would just cover with 1 empiric dose of Zosyn and have a Scott catheter so at least we can get a baseline abdominal pressure and she is chronically steroid dependent and has not taken any for several days so I will cover her with a stress dose of IV hydrocortisone and if an urea persists she might need central line for central venous pressure measurement
[2020-10-01 16:51] LABS: COVID-19 Test Negative (Negative); IDNOW Serial# 9DD0AD1C
--- NOTE | 2020-10-01 16:58 | PHA.MEDREC ---
Pharmacy Consult ? Medication Reconciliation Pharmacy has completed the medication reconciliation.
[2020-10-01 17:51] LABS: ABG Base Excess -11.3 mmol/L; ABG HCO3 12 mmol/L (22-26); ABG pCO2 23 mmHg (32-45); ABG pCO2 TC 22 mmHg (32-45); ABG pH 7.32 (7.35-7.45); ABG pH TC 7.33 (7.35-7.45); ABG pO2 85 mmHg (83-108); ABG pO2 TC 82 (83-108)
[2020-10-01] MEDS: Hydrocortisone Sod Succ/PF 100 MG VIAL IVPUSH (18:32)
[2020-10-01] MEDS: Piperacillin Sodium/Tazobactam 4.5 GM in 0.9 % Sodium Chloride 100 ML IV (18:32)
--- NOTE | 2020-10-01 18:33 | PC.NURSE ---
HAVING DIFFICULTY WITH IV ACCESS. DELAY IN ADMINISTRATION OF IVF. TECHNICAL DIFFICULTIES WITH COMPUTER IN ROOM. CAMPOS CATH IN.
[2020-10-01 18:41] LABS: Ammonia 34 umol/L (13-55)
[2020-10-01 18:43] LABS: Osmolality, Serum 289 mosm/kg (281-305)
[2020-10-01 18:46] LABS: Ethanol < 10 mg/dL; INTERNATIONAL NORM RATIO 1.3 (0.9-1.1); Prothrombin Time 15.4 SEC (9.9-13.0)
[2020-10-01 18:48] LABS: Lactic Acid 5.2 mmol/L (0.5-2.0); Partial Thromboplastin Time 28.9 SEC (24.1-38.0)
--- NOTE | 2020-10-01 18:55 | PC.NURSE ---
SPOKE WITH ADMITTING BRAIN PICKER, VO RECEIVED TO DC ACETYLCYSTEINE.
--- NOTE | 2020-10-01 19:15 | PC.NURSE ---
PT FOUND ON THE FLOOR OF HOSPITAL ROOM FACING THE WALL, UNWITNESSED FALL. PT WAS UNRESPONSIVE, PUPILS DILATED, BREATHING SHALLOW. AIDED INTO STRETCER, C-COLLAR PLACED, MD AND FINISH CLEANER MADE AWARE.
[2020-10-01 19:38] LABS: Glucose, Whole Blood 172 mg/dL (60-115)
--- NOTE | 2020-10-01 20:00 | PC.NURSE ---
PT INTUBATED BY DAVIDE MANZANARES, IO ACCESS OBTAINED ALL IV ACCESS HAD BEEN PULLED OUT. PTS RESPIRATIONS REMAINED SLOW AND SHALLOW, PT COOL, CLAMMY, BECOMING CYANOTIC. 7.5, 23CMS AT LIP. 20MG ETOMIDATE, CATIA 10. #16 CENTRAL CATH PLACED, OGT INSERTED, CXR TO CONFIRM.
[2020-10-01 20:19] LABS: ABG Base Excess -29.4 mmol/L; ABG HCO3 7 mmol/L (22-26); ABG pCO2 50 mmHg (32-45); ABG pH 6.73 (7.35-7.45); ABG pO2 477 mmHg (83-108)
[2020-10-01 20:21] LABS: Reflex Lactate? Lactic Acid Added
--- NOTE | 2020-10-01 21:01 | PM.CCN ---
Critical Care Event Note Summary Date of Service: 10/01/20 Code activated: No Narrative: This case had a high probability of a clinically significant, sudden, or life threatening deterioration of this patient's condition which required my full and direct attention, intervention and personal management. At approx. 19:20, I was called by the ED nurse Maria Del Carmen, to advise the patient had gotten up, ripped all of her IVs out and was found down on the ground in her room in the ED. I immediately went to the ED to find the patient back in her bed, laying down with a C-collar on, tachypneic and breathing shallow, nonresponsive, both pupils dilated with a clenched jaw. We immediately sent her for a head and cervical CT, and gave 2mg IV ativan. Head CT showed no acute intracranial pathology, not cervical spine CT showed no acute pathology. We then intubated the pt and placed a central line for venous access. A Urine tox was ordered by Dr. Stringer at 16:11 however it has not been collected yet. ABG immediately after intubation at 8:13pm was 6.73/50/477/7/ -29.4. This is a marked change from the ABG done at 5:45pm 7.32/23/82/12/-11.3. Will repeat all labs and get utox. Labs revealed worsening acidosis, kidney injury and rising transaminases. Spoke with Virgilio from poison Control, he recommended a volatile alcohol panel, calculated a serum osmolality gap which was 7, which makes methanol ethylene glycol or isopropyl alcohol ingestion very unlikely. Discussed this with Dr. Stringer, he advised not to order the fomepizole. Patient is still getting acetylcysteine however repeat acetaminophen level was still 3. CBC revealed WBC of 33, platelets 318. Coags as follows, PT 18.8, INR 1.6, PTT 50.4 and D-dimer 8028. Chemistry shows sodium 138, potassium 4.7, chloride 109, bicarb 9, gap 25, BUN 28, creatinine 2.6 3, glucose 237, osmolality 306, lactic acid 9.2, calcium 7.2, phosphorus 10.6, Mag 2.0 and CK 160. Troponin 26.2, total bilirubin 0.4, direct 0.3, AST 251, ALT 195, alk-phos 74, protein 4.4 an albumin 2.8. U tox was negative for everything except opiates which were positive. Salicylates negative. EKG sinus tach 112BPM. I did speak with the patient's healthcare proxy, her sister are Kayley Bergman, she states her sister should be a DNR/DNI, these were her sister's wishes. It appears the patient's code status get changed after an endoscopy earlier this year and never got changed back. I reviewed with her HCP and confirm she is a DNR/DNI. Blood pressures were undetectable, placed a right femoral A-line and blood pressures are in the 70/40 with a map of 50, we have added vasopressin and will give 1 amp of bicarb. Discussed case with Dr. Stringer, he agreed with assessment and plan. Critical Care Time (minutes): 120
--- NOTE | 2020-10-01 21:14 | W.PM.CCHP ---
Procedures Date of Service Date of Service: 10/01/20 Central Line Placement Right IJ: Central Line Comments: venous access needed Consent for Procedure: Emergent-no informed consent obtained Time out performed: Yes Sterile Technique Used: Yes Patient placed on monitor/pulse ox: Yes MD prep: mask, gown and gloves Central line prep: Chlorhexidine scrub and sterile drapes applied Ultrasound used for placement: Yes Central line lumen inserted: triple Post procedure: sutured in place, good blood return, all ports aspirated, flushed, capped and sterile dressing applied Post procedure x-ray: tip of catheter in good position and no pneumothorax seen Patient tolerated procedure: well and no complications Complications: none
--- NOTE | 2020-10-01 21:15 | W.PM.CCHP ---
Procedures Date of Service Date of Service: 10/01/20 Intubation Intubation Comments: With Dr Franklin at the bedside Sedative: etomidate Mg given: 20 Paralytic: succinylcholine Mg given: 100 Laryngoscope: fiber optic video scope ET tube size: 7.5 Tube placement confirmation: visualized tube passing through cords, equal breath sounds bilaterally, no breath sounds over epigastrium and confirmation by capnometry Patient tolerated procedure: well and no complications Intubation complications: none
[2020-10-01 21:16] LABS: Glucose Urine UA NEG (NEG); Leukocyte Esterase Urine NEG (NEG); Nitrite Urine NEG (NEG); PH 5.5 (5.0-8.0); Urine Blood NEG (NEG); Urine Ketones NEG (NEG); Urine Protein TRACE MG/DL (NEG-TRACE)
[2020-10-01 21:18] LABS: Appearance Urine CLEAR; Color Urine YELLOW
[2020-10-01 21:19] LABS: Venous Blood Gas Refer to POC result
[2020-10-01 21:19] LABS: VBG Base Excess -24.8 mmol/L; VBG HCO3 10 mmol/L (22-26); VBG pCO2 57 mmHg; VBG pH 6.82 (7.32-7.43); VBG pO2 193 mmHg
[2020-10-01 21:19] LABS: Basophils Absolute Auto 0.1 X10*3/uL (0.0-0.2); Basophils Percent Auto 0.3 % (0-2); Eosinophils Absolute Auto 0.1 X10*3/uL (0.0-0.4); Eosinophils Percent Auto 0.3 % (0-4); Hematocrit 43.6 % (37-47); Hemoglobin 13.5 g/dl (12.0-16.0); Imm Gran Abs Auto 1.39 X10*3/uL (0.00-0.03); Imm Gran Pct Auto 4.2 % (0.0-0.4); Lymphocytes Absolute Auto 3.8 X10*3/uL (1.2-4.9); Lymphocytes Percent Auto 11.6 % (20-40); MANUAL DIFF FLAG SCAN; Mean Corpuscular Hemoglobin 31.3 pg (27.0-33.0); Mean Corpuscular Volume 101.2 fL (80-98); Mean Platelet Volume 10.1 fL (9.4-12.3); Monocytes Absolute Auto 0.9 X10*3/uL (0.1-1.2); Monocytes Percent Auto 2.6 % (2-11); NRBC Pct Auto 0.4 /100WBC (0.0-0.2); Neutrophils Absolute Auto 26.7 X10*3/uL (2.0-8.3); Platelet Count 318 X10*3/uL (160-400); Red Blood Count 4.31 X10*6/uL (4.20-5.50); SCAN SMEAR FLAG 1
--- NOTE | 2020-10-01 21:20 | PC.NURSE ---
RECEIVED VO FOR NOREPI D/T SBPS IN 70S MAP <60. PT REMAINS UNCONSCIOUS. PUPILS REMAIN DILATED.
[2020-10-01 21:21] LABS: INTERNATIONAL NORM RATIO 1.6 (0.9-1.1); Prothrombin Time 18.8 SEC (9.9-13.0)
[2020-10-01 21:23] LABS: Partial Thromboplastin Time 50.4 SEC (24.1-38.0)
[2020-10-01 21:32] LABS: D Dimer 8028 NG/ML
[2020-10-01 21:40] LABS: SLIDE REVIEW VERIFIED
[2020-10-01 21:47] LABS: Amphetamine Screen Urine Not Detected (Not Detect); Barbiturates, Urine Not Detected (Not Detect); Benzodiazepines Screen Urine Not Detected (Not Detect); Cannabinoid Screen Urine Not Detected (Not Detect); Cocaine Screen Urine Not Detected (Not Detect); Opiate Screen Urine POSITIVE (Not Detect); Phencyclidine Screen Urine Not Detected (Not Detect)
[2020-10-01 21:48] LABS: Phosphorus 10.6 mg/dL (2.7-4.5)
[2020-10-01 21:57] LABS: Alanine Aminotransferase 195 U/L (0-31); Albumin Level 2.8 g/dL (3.5-5.0); Alkaline Phosphatase 74 U/L (39-117); Aspartate Amino Transferase 251 U/L (5-31); Bilirubin Direct 0.3 mg/dL (0.0-0.5); Bilirubin Total 0.4 mg/dL (0.0-1.0); Total Protein 4.4 g/dL (6.5-8.0)
[2020-10-01 22:04] LABS: Anion Gap 25 (12-20); Blood Urea Nitrogen 28 mg/dL (9-16); Calcium 7.2 mg/dL (8.4-10.2); Carbon Dioxide 9 mmol/L (22-29); Chloride 109 mmol/L (96-108); Creatinine Clr Calc Pharmacy 23.9; Estimated Glomerular Filt Rate 18; Glucose Random 237 mg/dL (60-115); Potassium 4.7 mmol/L (3.3-5.1); Sodium 138 mmol/L (135-145)
[2020-10-01 22:05] LABS: Troponin-I High Sensitivity 26.2 ng/L (<3.5-17.0)
[2020-10-01 22:16] LABS: Lactic Acid 9.2 mmol/L (0.5-2.0)
[2020-10-01 22:21] LABS: Osmolality, Serum 306 mosm/kg (281-305)
[2020-10-01] MEDS: KCl 20 mEq in 5% Dex/0.45% Sod 20 MEQ/1,000 ML IV.SOLN 80 MEQ IVCONT (22:41)
[2020-10-01 23:20] LABS: VBG Base Excess -26.6 mmol/L; VBG HCO3 7 mmol/L (22-26); VBG pCO2 37 mmHg; VBG pH 6.85 (7.32-7.43); VBG pO2 64 mmHg
[2020-10-01 23:21] LABS: Acetaminophen LAB 3 mcg/mL (<30)
[2020-10-01 23:22] LABS: Salicylate < 5.0 mg/dL (15-30)
[2020-10-01 23:55] LABS: Venous Blood Gas Refer to POC result
[2020-10-02] VITALS (11 sets, daily range): BP systolic 49–100; BP diastolic 20–53; PULSE 70–116; RESP 22; TEMP 36.3–36.9; O2SAT 63–94; BMI 33.7
--- NOTE | 2020-10-02 | ECG_ITS ---
Test Reason : POISON CONTROL Blood Pressure : / mmHG Vent. Rate : 112 BPM Atrial Rate : 112 BPM P-R Int : 140 ms QRS Dur : 082 ms QT Int : 318 ms P-R-T Axes : 042 068 048 degrees QTc Int : 434 ms Sinus tachycardia Otherwise normal ECG No significant changes when compared with the previous EKG of 01 october 2020 Referred By: Marla Stringer Electronically Signed By:QUINTON PRUITT
[2020-10-02 00:09] LABS: Reflex Lactate? Lactic Acid Added
[2020-10-02 01:13] LABS: Glucose, Whole Blood 192 mg/dL (60-115)
--- NOTE | 2020-10-02 01:49 | W.PM.CCHP ---
Procedures Date of Service Date of Service: 10/02/20 Arterial Line Arterial Line Comments: with Betty Clark PA-C from the ED Consent: Emergent-no informed consent obtained Sterile Technique Used: Yes Time out performed: Yes Technique used: direct puncture technique Post-Procedure: line sutured into place and dry sterile dressing placed Patient tolerated procedure: well and no complications Complications: none Site: right and femoral
[2020-10-02 01:52] LABS: VBG Base Excess -28.5 mmol/L; VBG HCO3 5 mmol/L (22-26); VBG pCO2 33 mmHg; VBG pH 6.81 (7.32-7.43); VBG pO2 48 mmHg
[2020-10-02] MEDS: Sodium Bicarbonate 8.4% 50 MEQ/50 ML VIAL IVPUSH (02:14)
--- NOTE | 2020-10-02 02:34 | PC.NURSE ---
Patient arrived from the ED at 2150. Patient intubated and unarousable. Patient had levophed and propofol infusing on arrival. Propofol was shut off within 20 minutes of arrival. Patient's bilateral lower extremities were cool to touch and mottled. CVP was placed on patient intitial CVP was 12 and has since been 9-10. Patient with declining blood pressure and PA aware, levophed was titrated accordingly and vasopressin was added. After midnight BP we were unable to obtain blood pressures, PA aware and decision was made to place an A-Line. SBP in the 70's, one amp bicarb administered with good effect. O2 sats are not measurable related to poor perfusion. PA was updated on all findings.
[2020-10-02 02:36] LABS: ABG Refer to POC result
[2020-10-02 02:37] LABS: Venous Blood Gas Refer to POC result
[2020-10-02 04:54] LABS: Reflex Lactate? 2 Y
[2020-10-02 05:38] LABS: ABG Base Excess -30.9 mmol/L; ABG HCO3 2 mmol/L (22-26); ABG pCO2 14 mmHg (32-45); ABG pCO2 TC 13 mmHg (32-45); ABG pH 6.81 (7.35-7.45); ABG pH TC 6.81 (7.35-7.45); ABG pO2 303 mmHg (83-108); ABG pO2 TC 299 (83-108)
[2020-10-02 05:45] LABS: Acetone NONE DETECTED (NONE DETECTED); Analysis performed on: WHOLE BLOOD; Ethyl Alcohol g/dL (%) NONE DETECTED g/dL(%) (NONE DETECTED); Ethyl Alcohol mg/dL NONE DETECTED (NONE DETECTED); Isopropanol NONE DETECTED (NONE DETECTED)
[2020-10-02 06:11] LABS: Hematocrit 44.7 % (37-47); Hemoglobin 13.1 g/dl (12.0-16.0); Mean Corpuscular HGB Conc 29.3 g/dl (31.0-35.0); Mean Corpuscular Hemoglobin 31.3 pg (27.0-33.0); Mean Corpuscular Volume 106.7 fL (80-98); Mean Platelet Volume 10.1 fL (9.4-12.3); Platelet Count 231 X10*3/uL (160-400); Red Blood Count 4.19 X10*6/uL (4.20-5.50); Red Cell Distribution Width 13.3 % (11.0-16.0)
[2020-10-02 06:23] LABS: NRBC Pct Auto 1.9 /100WBC (0.0-0.2); White Blood Count 32.5 X10*3/uL (4.8-10.8)
[2020-10-02 06:26] LABS: Calcium 6.9 mg/dL (8.4-10.2); Magnesium 2.5 mg/dL (1.6-2.6); Phosphorus 15.9 mg/dL (2.7-4.5)
[2020-10-02 06:27] LABS: Ethylene Glycol NONE DETECTED (NONE DETECTED)
[2020-10-02 06:35] LABS: INTERNATIONAL NORM RATIO 2.6 (0.9-1.1)
[2020-10-02 06:36] LABS: Partial Thromboplastin Time 99.3 SEC (24.1-38.0)
--- NOTE | 2020-10-02 07:02 | PC.NURSE ---
TOD 0638. FAMILY (SISTER JOCELYN) NOTIFIED BY PREVIOUS SHIFT RN. HOME LETICIA RIVAS. NEOB DENIED CASE #[id number] BY JANKI.
--- NOTE | 2020-10-02 07:07 | P.DS_ITS ---
DS: Providers Provider Date of Service: 10/02/20 Date of admission: 10/01/20 17:07 Date of discharge: 10/02/20 Primary care physician: Delisa Physician Consults: Justin Stringer DS: Diagnosis Discharge Diagnosis (1) Acute pancreatitis: Status: Acute (2) Acetaminophen overdose: Status: Acute (3) Acute dehydration: Status: Acute (4) COPD (chronic obstructive pulmonary disease): Status: Acute (5) Intermittent diarrhea: Status: Acute (6) Nausea and vomiting: Status: Acute (7) Diabetes mellitus: Status: Acute (8) Mixed hyperlipidemia: Status: Acute (9) Acquired hypothyroidism: Status: Acute (10) Obesity (BMI 30-39.9): Status: Acute (11) Smoker: Status: Acute (12) Polymyalgia rheumatica: Status: Acute (13) Psoriatic arthritis: Status: Acute (14) GERD (gastroesophageal reflux disease): Status: Acute (15) SIRS (systemic inflammatory response syndrome): Status: Acute DS: Medications Discharge Medications Home Medications: Home Medications Medication Instructions Recorded Confirmed metformin 500 mg tablet 500 mg PO BID 01/16/20 10/01/20 secukinumab 150 mg/mL subcutaneous 2 syringe SUBCUT Q4W 01/16/20 10/01/20 pen injector (Cosentyx Pen 300 mg/2 Pens () mirtazapine 15 mg tablet 15 mg PO BEDTIME 08/15/20 10/01/20 triamterene 37.5 1 cap PO DAILY 08/15/20 10/01/20 mg-hydrochlorothiazide 25 mg capsule oxycodone-acetaminophen 5 mg-325 1 tab PO BID-TID PRN tab 09/25/20 10/01/20 mg tablet lisinopril 5 mg tablet 1 tab PO DAILY 10/01/20 10/01/20 naproxen 375 mg tablet 1 tab PO DAILY 10/01/20 10/01/20 pantoprazole 40 mg tablet,delayed 1 tab PO BID 10/01/20 10/01/20 release prednisone 2.5 mg tablet 2.5 mg PO DAILY 10/01/20 10/01/20 prednisone 5 mg tablet 1 tab PO DAILY 10/01/20 10/01/20 Previous Rx's Medication Instructions Recorded atorvastatin 40 mg tablet 40 mg PO BEDTIME 90 Days #90 tab 03/28/20 fenofibrate 54 mg tablet 54 mg PO DAILY 90 Days #90 tab 03/28/20 levothyroxine 175 mcg tablet 175 mcg PO DAILY 90 Days #90 tab 06/27/20 umeclidinium 62.5 mcg/actuation 1 inh INHALATION DAILY 90 Days #90 06/27/20 blister powder for inhalation cap (Incruse Ellipta) albuterol sulfate 90 mcg/actuation 2 puff PO QID #8.5 g 08/04/20 aerosol inhaler gabapentin 300 mg capsule 300 mg PO TID #270 cap 08/06/20 lorazepam 1 mg tablet 1 mg PO BID PRN 30 Days #60 tab 08/30/20 diphenhydramine HCl 25 mg tablet 50 mg PO TID PRN #10 tab 09/18/20 (Benadryl Allergy) metoclopramide HCl 10 mg tablet 10 mg PO Q6H PRN #14 tab 09/18/20 (Reglan) ondansetron HCl 4 mg tablet 4 mg PO Q8H PRN #14 tab 09/18/20 (Zofran) DS: Summary Hospital Course Hospital Course: I saw the patient in the emergency room who presented here with persistent abdominal pain but the issues that ?my I were her claim for having taken 60 tabs of Percocet which would have amounted to 20 g of acetaminophen about 72 hours earlier on Wednesday which was September 28 and she just had mild elevation of transaminases but a normal ammonia level and normal PT INR when 1st admitted so the see the minutes and level was also at 3 so by multiple criteria at this point we will beyond the window of the acute hepatic failure as at least from the acetaminophen overdose and the rest of the toxicology screen was negative but she had a positive anion gap acidosis with significantly elevated lactic acid and a markedly elevated serum lipase and a CT scan of the abdomen showing that there was no free air but clear-cut extensive stranding surrounding a disease looking pancreas certainly consistent therefore with acute pancreatitis with SIRS Initially she was conversive and had normal vital signs definitely also had evidence of acute stage III renal failure and she also had been steroid dependent but stop taking steroids for several days because of vomiting issues and we gave her a stress dose of steroids and IV fluid resuscitation and then maintenance IV fluids and then placed a Scott catheter in the hope that we would measure abdominal pressure baseline so that we could follow in case a compartme nt syndrome developed but during the time she spent in the emergency room she was then suddenly found to be of diminished responsiveness with bilateral pupillary dilatation no apparent seizure activity but clearly for compromised renal mental status was intubated S central line needed to be placed in an initial CVP measurement was 9 on her IV fluids but she developed progressive worsening of the lactic acidosis and pH had dropped down to 6.8 and remained intractable she in addition became hypotensive certainly was behaving like a fulminant form of pancreatitis in all likelihood and over time required blood pressure support with with IV pressors and she developed diffuse livedo worsening hypotension intractable anion gap positive metabolic acidosis and then likely developed shock liver because her protime and PTT both became elevated but with a stable platelet count so this was not a consumptive coagulopathy like DIC more likely an ischemic liver from low-flow and I doubted of course the ingestion of a toxic alcohol because she had normal serum osmolality this appear to be mostly lactate but the acute renal failure contributed to the metabolic acidosis to inform the family of the likely grave prognosis and she remained intractably hypotensive and then at about 630 she started to become more bradycardic with a widening QRS and at 6:38 a.m. became asystolic and was pronounced by me Status at Discharge Cognitive/behavioral status at discharge: Patient Time Spent with Patient Time attestation: Total time spent providing and/or coordinating discharge services: Discharge coordination time: Greater than 30 minutes Quality: Stroke Does the patient have a stroke diagnosis?: No Physical Exam Vital Signs: Vital Signs: Last Vital Signs Temp 97.4 F 10/02/20 04:55 Pulse 70 10/02/20 06:01 Resp 22 H 10/02/20 06:01 BP 49/20 L 10/02/20 06:01 Pulse Ox 63 L 10/02/20 02:22 Oxygen Flow Rate 2 10/01/20 09:10 Body Mass Index 33.7 DS: Data Data Completed and Pending Completed studies during hospitalization [Text1]: S initial EKG showed sinus tachycardia was otherwise within normal limits CT scan of the chest just demonstrated emphysema no acute infiltrate or effusion and abdominal CT scan showed no evidence of pneumatosis and no free air and no ileus or mechanical obstruction just significant stranding surrounding the pancreas and no evidence of obstruction of the biliary system Labs on day of discharge: Laboratory Results - last 24 hr 10/01/20 10/01/20 10/01/20 12:47 12:47 12:47 WBC 31.9 H* RBC 5.39 Hgb 16.7 H D Hct 51.3 H D MCV 95.2 MCH 31.0 MCHC 32.6 RDW 13.2 Plt Count 377 MPV 9.6 Immature Gran % (Auto) 1.0 H Neut % (Auto) 92.1 H Lymph % (Auto) 2.4 L [place] % (Auto) 4.2 Eos % (Auto) 0.0 Baso % (Auto) 0.3 Lymph # (Auto) 0.8 L [place] # (Auto) 1.4 H Eos # (Auto) 0.0 Baso # (Auto) 0.1 Abs Immat Gran (auto) 0.33 H Absolute Neuts (auto) 29.3 H Absolute Nucleated RBC 0.020 H Nucleated RBC % (auto) 0.1 Smear Tech's Comments VERIFIED PT INR APTT D-Dimer O2 Saturation ABG pH at Pt Temp ABG pH (Temp Correct) ABG pCO2 at Pt Temp ABG pCO2 (Temp Corrct ABG pO2 at Pt Temp ABG pO2 (Temp Correct ABG HCO3 ABG Base Excess (Actual) VBG pH VBG pCO2 VBG pO2 VBG HCO3 VBG O2 Saturation VBG Base Excess Sodium 135 Potassium 4.0 Chloride 98 Carbon Dioxide 16 L Anion Gap 25 H BUN 21 H Creatinine 2.08 H Estim Creat Clear Calc 30.2 Estimated GFR 24 POC Glucose Random Glucose 201 H D Osmolality Lactic Acid Lactic Acid Fup @ 2Hr Calcium 10.0 Phosphorus Magnesium Total Bilirubin 0.9 Direct Bilirubin AST 109 H ALT 94 H Alkaline Phosphatase 91 Ammonia Total Creatine Kinase 160 H D Troponin I High Sens Total Protein 7.0 Albumin 4.4 Triglycerides 145 Lipase 3935 H Urine Color YELLOW Urine Appearance HAZY Urine pH 5.5 Ur Specific [place] >= 1.030 H Urine Protein 1+ H Urine Glucose (UA) 100 H Urine Ketones NEG Urine Blood NEG Urine Nitrite NEG Ur Leukocyte Esterase NEG Urine RBC 0 Urine WBC 0 Ur Squamous Epith Cells 1+ Amorphous Sediment 1+ Urine Bacteria TRACE Salicylates Urine Opiates Screen Acetaminophen Ur Barbiturates Screen Ur Phencyclidine Scrn Ur Amphetamines Screen U Benzodiazepines Scrn Urine Cocaine Screen U Marijuana (THC) Screen Ethylene Glycol Volat Analys Perform On Ethyl Alcohol Ethyl Alcohol mg/dL Ethyl Alcohol g/dL Isopropyl Alc, Quant Acetone Level COVID-19 (JILLIAN) COVID-19 Clin Com 10/01/20 10/01/20 10/01/20 13:45 16:13 17:44 WBC RBC Hgb Hct MCV MCH MCHC RDW Plt Count MPV Immature Gran % (Auto) Neut % (Auto) Lymph % (Auto) [place] % (Auto) Eos % (Auto) Baso % (Auto) Lymph # (Auto) [place] # (Auto) Eos # (Auto) Baso # (Auto) Abs Immat Gran (auto) Absolute Neuts (auto) Absolute Nucleated RBC Nucleated RBC % (auto) Smear Tech's Comments PT INR APTT D-Dimer O2 Saturation 94.0 ABG pH at Pt Temp 7.32 L ABG pH (Temp Correct) 7.33 L ABG pCO2 at Pt Temp 23 L ABG pCO2 (Temp Corrct 22 L ABG pO2 at Pt Temp 85 ABG pO2 (Temp Correct 82 L ABG HCO3 12 L ABG Base Excess (Actual) -11.3 VBG pH VBG pCO2 VBG pO2 VBG HCO3 VBG O2 Saturation VBG Base Excess Sodium Potassium Chloride Carbon Dioxide Anion Gap BUN Creatinine Estim Creat Clear Calc Estimated GFR POC Glucose Random Glucose Osmolality Lactic Acid Lactic Acid Fup @ 2Hr Calcium Phosphorus Magnesium Total Bilirubin Direct Bilirubin AST ALT Alkaline Phosphatase Ammonia Total Creatine Kinase Troponin I High Sens Total Protein Albumin Triglycerides Lipase Urine Color Urine Appearance Urine pH Ur Specific [place] Urine Protein Urine Glucose (UA) Urine Ketones Urine Blood Urine Nitrite Ur Leukocyte Esterase Urine RBC Urine WBC Ur Squamous Epith Cells Amorphous Sediment Urine Bacteria Salicylates Urine Opiates Screen Acetaminophen 3 Ur Barbiturates Screen Ur Phencyclidine Scrn Ur Amphetamines Screen U Benzodiazepines Scrn Urine Cocaine Screen U Marijuana (THC) Screen Ethylene Glycol Volat Analys Perform On Ethyl Alcohol Ethyl Alcohol mg/dL Ethyl Alcohol g/dL Isopropyl Alc, Quant Acetone Level COVID-19 (JILLIAN) Negative COVID-19 Clin Com See Note 10/01/20 10/01/20 10/01/20 18:17 18:17 18:17 WBC RBC Hgb Hct MCV MCH MCHC RDW Plt Count MPV Immature Gran % (Auto) Neut % (Auto) Lymph % (Auto) [place] % (Auto) Eos % (Auto) Baso % (Auto) Lymph # (Auto) [place] # (Auto) Eos # (Auto) Baso # (Auto) Abs Immat Gran (auto) Absolute Neuts (auto) Absolute Nucleated RBC Nucleated RBC % (auto) Smear Tech's Comments PT 15.4 H D INR 1.3 H APTT 28.9 D-Dimer O2 Saturation ABG pH at Pt Temp ABG pH (Temp Correct) ABG pCO2 at Pt Temp ABG pCO2 (Temp Corrct ABG pO2 at Pt Temp ABG pO2 (Temp Correct ABG HCO3 ABG Base Excess (Actual) VBG pH VBG pCO2 VBG pO2 VBG HCO3 VBG O2 Saturation VBG Base Excess Sodium Potassium Chloride Carbon Dioxide Anion Gap BUN Creatinine Estim Creat Clear Calc Estimated GFR POC Glucose Random Glucose Osmolality Lactic Acid 5.2 H* Lactic Acid Fup @ 2Hr Calcium Phosphorus Magnesium Total Bilirubin Direct Bilirubin AST ALT Alkaline Phosphatase Ammonia 34 Total Creatine Kinase Troponin I High Sens Total Protein Albumin Triglycerides Lipase Urine Color Urine Appearance Urine pH Ur Specific [place] Urine Protein Urine Glucose (UA) Urine Ketones Urine Blood Urine Nitrite Ur Leukocyte Esterase Urine RBC Urine WBC Ur Squamous Epith Cells Amorphous Sediment Urine Bacteria Salicylates Urine Opiates Screen Acetaminophen Ur Barbiturates Screen Ur Phencyclidine Scrn Ur Amphetamines Screen U Benzodiazepines Scrn Urine Cocaine Screen U Marijuana (THC) Screen Ethylene Glycol Volat Analys Perform On Ethyl Alcohol Ethyl Alcohol mg/dL Ethyl Alcohol g/dL Isopropyl Alc, Quant Acetone Level COVID-19 (JILLIAN) COVID-19 Clin Com 10/01/20 10/01/20 10/01/20 18:17 18:17 19:34 WBC RBC Hgb Hct MCV MCH MCHC RDW Plt Count MPV Immature Gran % (Auto) Neut % (Auto) Lymph % (Auto) [place] % (Auto) Eos % (Auto) Baso % (Auto) Lymph # (Auto) [place] # (Auto) Eos # (Auto) Baso # (Auto) Abs Immat Gran (auto) Absolute Neuts (auto) Absolute Nucleated RBC Nucleated RBC % (auto) Smear Tech's Comments PT INR APTT D-Dimer O2 Saturation ABG pH at Pt Temp ABG pH (Temp Correct) ABG pCO2 at Pt Temp ABG pCO2 (Temp Corrct ABG pO2 at Pt Temp ABG pO2 (Temp Correct ABG HCO3 ABG Base Excess (Actual) VBG pH VBG pCO2 VBG pO2 VBG HCO3 VBG O2 Saturation VBG Base Excess Sodium Potassium Chloride Carbon Dioxide Anion Gap BUN Creatinine Estim Creat Clear Calc Estimated GFR POC Glucose 172 H Random Glucose Osmolality 289 Lactic Acid Lactic Acid Fup @ 2Hr Calcium Phosphorus Magnesium Total Bilirubin Direct Bilirubin AST ALT Alkaline Phosphatase Ammonia Total Creatine Kinase Troponin I High Sens Total Protein Albumin Triglycerides Lipase Urine Color Urine Appearance Urine pH Ur Specific [place] Urine Protein Urine Glucose (UA) Urine Ketones Urine Blood Urine Nitrite Ur Leukocyte Esterase Urine RBC Urine WBC Ur Squamous Epith Cells Amorphous Sediment Urine Bacteria Salicylates Urine Opiates Screen Acetaminophen Ur Barbiturates Screen Ur Phencyclidine Scrn Ur Amphetamines Screen U Benzodiazepines Scrn Urine Cocaine Screen U Marijuana (THC) Screen Ethylene Glycol Volat Analys Perform On Ethyl Alcohol < 10 Ethyl Alcohol mg/dL Ethyl Alcohol g/dL Isopropyl Alc, Quant Acetone Level COVID-19 (JILLIAN) COVID-19 Clin Com 10/01/20 10/01/20 10/01/20 20:13 21:05 21:05 WBC 33.0 H* RBC 4.31 D Hgb 13.5 Hct 43.6 MCV 101.2 H D MCH 31.3 MCHC 31.0 RDW 13.0 Plt Count 318 MPV 10.1 Immature Gran % (Auto) 4.2 H Neut % (Auto) 81.0 H Lymph % (Auto) 11.6 L [place] % (Auto) 2.6 Eos % (Auto) 0.3 Baso % (Auto) 0.3 Lymph # (Auto) 3.8 [place] # (Auto) 0.9 Eos # (Auto) 0.1 Baso # (Auto) 0.1 Abs Immat Gran (auto) 1.39 H Absolute Neuts (auto) 26.7 H Absolute Nucleated RBC 0.140 H Nucleated RBC % (auto) 0.4 H Smear Tech's Comments VERIFIED PT INR APTT D-Dimer O2 Saturation 99.0 ABG pH at Pt Temp 6.73 L* ABG pH (Temp Correct) ABG pCO2 at Pt Temp 50 H ABG pCO2 (Temp Corrct ABG pO2 at Pt Temp 477 H ABG pO2 (Temp Correct ABG HCO3 7 L ABG Base Excess (Actual) -29.4 VBG pH VBG pCO2 VBG pO2 VBG HCO3 VBG O2 Saturation VBG Base Excess Sodium Potassium Chloride Carbon Dioxide Anion Gap BUN Creatinine Estim Creat Clear Calc Estimated GFR POC Glucose Random Glucose Osmolality Lactic Acid Lactic Acid Fup @ 2Hr Calcium Phosphorus Magnesium Total Bilirubin Direct Bilirubin AST ALT Alkaline Phosphatase Ammonia Total Creatine Kinase Troponin I High Sens 26.2 H* Total Protein Albumin Triglycerides Lipase Urine Color Urine Appearance Urine pH Ur Specific [place] Urine Protein Urine Glucose (UA) Urine Ketones Urine Blood Urine Nitrite Ur Leukocyte Esterase Urine RBC Urine WBC Ur Squamous Epith Cells Amorphous Sediment Urine Bacteria Salicylates Urine Opiates Screen Acetaminophen Ur Barbiturates Screen Ur Phencyclidine Scrn Ur Amphetamines Screen U Benzodiazepines Scrn Urine Cocaine Screen U Marijuana (THC) Screen Ethylene Glycol Volat Analys Perform On Ethyl Alcohol Ethyl Alcohol mg/dL Ethyl Alcohol g/dL Isopropyl Alc, Quant Acetone Level COVID-19 (JILLIAN) COVID-19 Clin Com 10/01/20 10/01/20 10/01/20 21:05 21:05 21:05 WBC RBC Hgb Hct MCV MCH MCHC RDW Plt Count MPV Immature Gran % (Auto) Neut % (Auto) Lymph % (Auto) [place] % (Auto) Eos % (Auto) Baso % (Auto) Lymph # (Auto) [place] # (Auto) Eos # (Auto) Baso # (Auto) Abs Immat Gran (auto) Absolute Neuts (auto) Absolute Nucleated RBC Nucleated RBC % (auto) Smear Tech's Comments PT 18.8 H D INR 1.6 H APTT 50.4 H D D-Dimer 8028 O2 Saturation ABG pH at Pt Temp ABG pH (Temp Correct) ABG pCO2 at Pt Temp ABG pCO2 (Temp Corrct ABG pO2 at Pt Temp ABG pO2 (Temp Correct ABG HCO3 ABG Base Excess (Actual) VBG pH VBG pCO2 VBG pO2 VBG HCO3 VBG O2 Saturation VBG Base Excess Sodium Potassium Chloride Carbon Dioxide Anion Gap BUN Creatinine Estim Creat Clear Calc Estimated GFR POC Glucose Random Glucose Osmolality Lactic Acid Lactic Acid Fup @ 2Hr Calcium Phosphorus Magnesium Total Bilirubin 0.4 Direct Bilirubin 0.3 AST 251 H ALT 195 H Alkaline Phosphatase 74 Ammonia Total Creatine Kinase Troponin I High Sens Total Protein 4.4 L D Albumin 2.8 L D Triglycerides Lipase Urine Color Urine Appearance Urine pH Ur Specific [place] Urine Protein Urine Glucose (UA) Urine Ketones Urine Blood Urine Nitrite Ur Leukocyte Esterase Urine RBC Urine WBC Ur Squamous Epith Cells Amorphous Sediment Urine Bacteria Salicylates Urine Opiates Screen Acetaminophen 3 Ur Barbiturates Screen Ur Phencyclidine Scrn Ur Amphetamines Screen U Benzodiazepines Scrn Urine Cocaine Screen U Marijuana (THC) Screen Ethylene Glycol Volat Analys Perform On Ethyl Alcohol Ethyl Alcohol mg/dL Ethyl Alcohol g/dL Isopropyl Alc, Quant Acetone Level COVID-19 (JILLIAN) COVID-19 Clin Com 10/01/20 10/01/20 10/01/20 21:06 21:06 21:06 WBC RBC Hgb Hct MCV MCH MCHC RDW Plt Count MPV Immature Gran % (Auto) Neut % (Auto) Lymph % (Auto) [place] % (Auto) Eos % (Auto) Baso % (Auto) Lymph # (Auto) [place] # (Auto) Eos # (Auto) Baso # (Auto) Abs Immat Gran (auto) Absolute Neuts (auto) Absolute Nucleated RBC Nucleated RBC % (auto) Smear Tech's Comments PT INR APTT D-Dimer O2 Saturation ABG pH at Pt Temp ABG pH (Temp Correct) ABG pCO2 at Pt Temp ABG pCO2 (Temp Corrct ABG pO2 at Pt Temp ABG pO2 (Temp Correct ABG HCO3 ABG Base Excess (Actual) VBG pH VBG pCO2 VBG pO2 VBG HCO3 VBG O2 Saturation VBG Base Excess Sodium Potassium Chloride Carbon Dioxide Anion Gap BUN Creatinine Estim Creat Clear Calc Estimated GFR POC Glucose Random Glucose Osmolality Lactic Acid 9.2 H* Lactic Acid Fup @ 2Hr Cancelled Calcium Cancelled Phosphorus 10.6 H Magnesium Total Bilirubin Direct Bilirubin AST ALT Alkaline Phosphatase Ammonia Total Creatine Kinase Troponin I High Sens Total Protein Albumin Triglycerides Lipase Urine Color Urine Appearance Urine pH Ur Specific [place] Urine Protein Urine Glucose (UA) Urine Ketones Urine Blood Urine Nitrite Ur Leukocyte Esterase Urine RBC Urine WBC Ur Squamous Epith Cells Amorphous Sediment Urine Bacteria Salicylates Urine Opiates Screen Acetaminophen Ur Barbiturates Screen Ur Phencyclidine Scrn Ur Amphetamines Screen U Benzodiazepines Scrn Urine Cocaine Screen U Marijuana (THC) Screen Ethylene Glycol Volat Analys Perform On Ethyl Alcohol Ethyl Alcohol mg/dL Ethyl Alcohol g/dL Isopropyl Alc, Quant Acetone Level COVID-19 (JILLIAN) COVID-19 Clin Com 10/01/20 10/01/20 10/01/20 21:06 21:06 21:06 WBC RBC Hgb Hct MCV MCH MCHC RDW Plt Count MPV Immature Gran % (Auto) Neut % (Auto) Lymph % (Auto) [place] % (Auto) Eos % (Auto) Baso % (Auto) Lymph # (Auto) [place] # (Auto) Eos # (Auto) Baso # (Auto) Abs Immat Gran (auto) Absolute Neuts (auto) Absolute Nucleated RBC Nucleated RBC % (auto) Smear Tech's Comments PT INR APTT D-Dimer O2 Saturation ABG pH at Pt Temp ABG pH (Temp Correct) ABG pCO2 at Pt Temp ABG pCO2 (Temp Corrct ABG pO2 at Pt Temp ABG pO2 (Temp Correct ABG HCO3 ABG Base Excess (Actual) VBG pH VBG pCO2 VBG pO2 VBG HCO3 VBG O2 Saturation VBG Base Excess Sodium 138 Potassium 4.7 Chloride 109 H Carbon Dioxide 9 L* D Anion Gap 25 H BUN 28 H Creatinine 2.63 H Estim Creat Clear Calc 23.9 Estimated GFR 18 POC Glucose Random Glucose 237 H Osmolality 306 H Lactic Acid Lactic Acid Fup @ 2Hr Calcium 7.2 L D Phosphorus Magnesium 2.0 Total Bilirubin Direct Bilirubin AST ALT Alkaline Phosphatase Ammonia Total Creatine Kinase 160 H Troponin I High Sens Total Protein Albumin Triglycerides Lipase Urine Color Urine Appearance Urine pH Ur Specific [place] Urine Protein Urine Glucose (UA) Urine Ketones Urine Blood Urine Nitrite Ur Leukocyte Esterase Urine RBC Urine WBC Ur Squamous Epith Cells Amorphous Sediment Urine Bacteria Salicylates < 5.0 L Urine Opiates Screen Acetaminophen Ur Barbiturates Screen Ur Phencyclidine Scrn Ur Amphetamines Screen U Benzodiazepines Scrn Urine Cocaine Screen U Marijuana (THC) Screen Ethylene Glycol Volat Analys Perform On Ethyl Alcohol Ethyl Alcohol mg/dL Ethyl Alcohol g/dL Isopropyl Alc, Quant Acetone Level COVID-19 (JILLIAN) COVID-19 Clin Com 10/01/20 10/01/20 10/01/20 21:07 21:07 21:10 WBC RBC Hgb Hct MCV MCH MCHC RDW Plt Count MPV Immature Gran % (Auto) Neut % (Auto) Lymph % (Auto) [place] % (Auto) Eos % (Auto) Baso % (Auto) Lymph # (Auto) [place] # (Auto) Eos # (Auto) Baso # (Auto) Abs Immat Gran (auto) Absolute Neuts (auto) Absolute Nucleated RBC Nucleated RBC % (auto) Smear Tech's Comments PT INR APTT D-Dimer O2 Saturation ABG pH at Pt Temp ABG pH (Temp Correct) ABG pCO2 at Pt Temp ABG pCO2 (Temp Corrct ABG pO2 at Pt Temp ABG pO2 (Temp Correct ABG HCO3 ABG Base Excess (Actual) VBG pH 6.82 L* VBG pCO2 57 VBG pO2 193 VBG HCO3 10 L VBG O2 Saturation 97.0 VBG Base Excess -24.8 Sodium Potassium Chloride Carbon Dioxide Anion Gap BUN Creatinine Estim Creat Clear Calc Estimated GFR POC Glucose Random Glucose Osmolality Lactic Acid Lactic Acid Fup @ 2Hr Calcium Phosphorus Magnesium Total Bilirubin Direct Bilirubin AST ALT Alkaline Phosphatase Ammonia Total Creatine Kinase Troponin I High Sens Total Protein Albumin Triglycerides Lipase Urine Color YELLOW Urine Appearance CLEAR Urine pH 5.5 Ur Specific [place] 1.020 Urine Protein TRACE Urine Glucose (UA) NEG Urine Ketones NEG Urine Blood NEG Urine Nitrite NEG Ur Leukocyte Esterase NEG Urine RBC Urine WBC Ur Squamous Epith Cells Amorphous Sediment Urine Bacteria Salicylates Urine Opiates Screen POSITIVE H Acetaminophen Ur Barbiturates Screen Not Detected Ur Phencyclidine Scrn Not Detected Ur Amphetamines Screen Not Detected U Benzodiazepines Scrn Not Detected Urine Cocaine Screen Not Detected U Marijuana (THC) Screen Not Detected Ethylene Glycol Volat Analys Perform On Ethyl Alcohol Ethyl Alcohol mg/dL Ethyl Alcohol g/dL Isopropyl Alc, Quant Acetone Level COVID-19 (JILLIAN) COVID-19 Clin Com 10/01/20 10/01/20 10/01/20 23:10 23:33 23:33 WBC RBC Hgb Hct MCV MCH MCHC RDW Plt Count MPV Immature Gran % (Auto) Neut % (Auto) Lymph % (Auto) [place] % (Auto) Eos % (Auto) Baso % (Auto) Lymph # (Auto) [place] # (Auto) Eos # (Auto) Baso # (Auto) Abs Immat Gran (auto) Absolute Neuts (auto) Absolute Nucleated RBC Nucleated RBC % (auto) Smear Tech's Comments PT INR APTT D-Dimer O2 Saturation ABG pH at Pt Temp ABG pH (Temp Correct) ABG pCO2 at Pt Temp ABG pCO2 (Temp Corrct ABG pO2 at Pt Temp ABG pO2 (Temp Correct ABG HCO3 ABG Base Excess (Actual) VBG pH 6.85 L* VBG pCO2 37 VBG pO2 64 VBG HCO3 7 L VBG O2 Saturation 72.0 VBG Base Excess -26.6 Sodium Potassium Chloride Carbon Dioxide Anion Gap BUN Creatinine Estim Creat Clear Calc Estimated GFR POC Glucose Random Glucose Osmolality Lactic Acid Lactic Acid Fup @ 2Hr Calcium Phosphorus Magnesium Total Bilirubin Direct Bilirubin AST ALT Alkaline Phosphatase Ammonia Total Creatine Kinase Troponin I High Sens Total Protein Albumin Triglycerides Lipase Urine Color Urine Appearance Urine pH Ur Specific [place] Urine Protein Urine Glucose (UA) Urine Ketones Urine Blood Urine Nitrite Ur Leukocyte Esterase Urine RBC Urine WBC Ur Squamous Epith Cells Amorphous Sediment Urine Bacteria Salicylates Urine Opiates Screen Acetaminophen Ur Barbiturates Screen Ur Phencyclidine Scrn Ur Amphetamines Screen U Benzodiazepines Scrn Urine Cocaine Screen U Marijuana (THC) Screen Ethylene Glycol NONE DETECTED Volat Analys Perform On WHOLE BLOOD Ethyl Alcohol Ethyl Alcohol mg/dL NONE DETECTED Ethyl Alcohol g/dL NONE DETECTED Isopropyl Alc, Quant NONE DETECTED Acetone Level NONE DETECTED COVID-19 (JILLIAN) COVID-19 Clin Com 10/02/20 10/02/20 10/02/20 00:41 01:38 01:42 WBC RBC Hgb Hct MCV MCH MCHC RDW Plt Count MPV Immature Gran % (Auto) Neut % (Auto) Lymph % (Auto) [place] % (Auto) Eos % (Auto) Baso % (Auto) Lymph # (Auto) [place] # (Auto) Eos # (Auto) Baso # (Auto) Abs Immat Gran (auto) Absolute Neuts (auto) Absolute Nucleated RBC Nucleated RBC % (auto) Smear Tech's Comments PT INR APTT D-Dimer O2 Saturation ABG pH at Pt Temp ABG pH (Temp Correct) ABG pCO2 at Pt Temp ABG pCO2 (Temp Corrct ABG pO2 at Pt Temp ABG pO2 (Temp Correct ABG HCO3 ABG Base Excess (Actual) VBG pH 6.81 L* VBG pCO2 33 VBG pO2 48 VBG HCO3 5 L VBG O2 Saturation 57.0 VBG Base Excess -28.5 Sodium Potassium Chloride Carbon Dioxide Anion Gap BUN Creatinine Estim Creat Clear Calc Estimated GFR POC Glucose 192 H Random Glucose Osmolality Lactic Acid Lactic Acid Fup @ 2Hr 9.0 H* Calcium Phosphorus Magnesium Total Bilirubin Direct Bilirubin AST ALT Alkaline Phosphatase Ammonia Total Creatine Kinase Troponin I High Sens Total Protein Albumin Triglycerides Lipase Urine Color Urine Appearance Urine pH Ur Specific [place] Urine Protein Urine Glucose (UA) Urine Ketones Urine Blood Urine Nitrite Ur Leukocyte Esterase Urine RBC Urine WBC Ur Squamous Epith Cells Amorphous Sediment Urine Bacteria Salicylates Urine Opiates Screen Acetaminophen Ur Barbiturates Screen Ur Phencyclidine Scrn Ur Amphetamines Screen U Benzodiazepines Scrn Urine Cocaine Screen U Marijuana (THC) Screen Ethylene Glycol Volat Analys Perform On Ethyl Alcohol Ethyl Alcohol mg/dL Ethyl Alcohol g/dL Isopropyl Alc, Quant Acetone Level COVID-19 (JILLIAN) COVID-19 Clin Com 10/02/20 10/02/20 10/02/20 04:54 04:56 04:56 WBC 32.5 H* RBC 4.19 L Hgb 13.1 Hct 44.7 MCV 106.7 H D MCH 31.3 MCHC 29.3 L RDW 13.3 Plt Count 231 D MPV 10.1 Immature Gran % (Auto) Neut % (Auto) Lymph % (Auto) [place] % (Auto) Eos % (Auto) Baso % (Auto) Lymph # (Auto) [place] # (Auto) Eos # (Auto) Baso # (Auto) Abs Immat Gran (auto) Absolute Neuts (auto) Absolute Nucleated RBC 0.620 H Nucleated RBC % (auto) 1.9 H Smear Tech's Comments PT 30.0 H D INR 2.6 H APTT 99.3 H* D D-Dimer O2 Saturation ABG pH at Pt Temp ABG pH (Temp Correct) ABG pCO2 at Pt Temp ABG pCO2 (Temp Corrct ABG pO2 at Pt Temp ABG pO2 (Temp Correct ABG HCO3 ABG Base Excess (Actual) VBG pH VBG pCO2 VBG pO2 VBG HCO3 VBG O2 Saturation VBG Base Excess Sodium Potassium Chloride Carbon Dioxide Anion Gap BUN Creatinine Estim Creat Clear Calc Estimated GFR POC Glucose Random Glucose Osmolality Lactic Acid Lactic Acid Fup @ 2Hr Calcium 6.9 L Phosphorus 15.9 H Magnesium 2.5 Total Bilirubin Direct Bilirubin AST ALT Alkaline Phosphatase Ammonia Total Creatine Kinase Troponin I High Sens Total Protein Albumin Triglycerides Lipase Urine Color Urine Appearance Urine pH Ur Specific [place] Urine Protein Urine Glucose (UA) Urine Ketones Urine Blood Urine Nitrite Ur Leukocyte Esterase Urine RBC Urine WBC Ur Squamous Epith Cells Amorphous Sediment Urine Bacteria Salicylates Urine Opiates Screen Acetaminophen Ur Barbiturates Screen Ur Phencyclidine Scrn Ur Amphetamines Screen U Benzodiazepines Scrn Urine Cocaine Screen U Marijuana (THC) Screen Ethylene Glycol Volat Analys Perform On Ethyl Alcohol Ethyl Alcohol mg/dL Ethyl Alcohol g/dL Isopropyl Alc, Quant Acetone Level COVID-19 (JILLIAN) COVID-19 Clin Com 10/02/20 05:08 WBC RBC Hgb Hct MCV MCH MCHC RDW Plt Count MPV Immature Gran % (Auto) Neut % (Auto) Lymph % (Auto) [place] % (Auto) Eos % (Auto) Baso % (Auto) Lymph # (Auto) [place] # (Auto) Eos # (Auto) Baso # (Auto) Abs Immat Gran (auto) Absolute Neuts (auto) Absolute Nucleated RBC Nucleated RBC % (auto) Smear Tech's Comments PT INR APTT D-Dimer O2 Saturation 99.0 ABG pH at Pt Temp 6.81 L* ABG pH (Temp Correct) 6.81 L* ABG pCO2 at Pt Temp 14 L* ABG pCO2 (Temp Corrct 13 L* ABG pO2 at Pt Temp 303 H ABG pO2 (Temp Correct 299 H ABG HCO3 2 L ABG Base Excess (Actual) -30.9 VBG pH VBG pCO2 VBG pO2 VBG HCO3 VBG O2 Saturation VBG Base Excess Sodium Potassium Chloride Carbon Dioxide Anion Gap BUN Creatinine Estim Creat Clear Calc Estimated GFR POC Glucose Random Glucose Osmolality Lactic Acid Lactic Acid Fup @ 2Hr Calcium Phosphorus Magnesium Total Bilirubin Direct Bilirubin AST ALT Alkaline Phosphatase Ammonia Total Creatine Kinase Troponin I High Sens Total Protein Albumin Triglycerides Lipase Urine Color Urine Appearance Urine pH Ur Specific [place] Urine Protein Urine Glucose (UA) Urine Ketones Urine Blood Urine Nitrite Ur Leukocyte Esterase Urine RBC Urine WBC Ur Squamous Epith Cells Amorphous Sediment Urine Bacteria Salicylates Urine Opiates Screen Acetaminophen Ur Barbiturates Screen Ur Phencyclidine Scrn Ur Amphetamines Screen U Benzodiazepines Scrn Urine Cocaine Screen U Marijuana (THC) Screen Ethylene Glycol Volat Analys Perform On Ethyl Alcohol Ethyl Alcohol mg/dL Ethyl Alcohol g/dL Isopropyl Alc, Quant Acetone Level COVID-19 (JILLIAN) COVID-19 Switchboard Com Discharge Plan Discharge Anticipated Discharge Date/Time: 10/02/20 07:21 Patient Disposition: Discharge Diagnosis: 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 Referrals: Physician,Unknown [Primary Care Provider] - 1 Week Discharge Medications: No Action albuterol sulfate 90 mcg/actuation HFA aerosol inhaler 2 puff PO QID Qty: 8.5 RF: 3 gabapentin 300 mg capsule 300 mg PO TID Qty: 270 RF: 0 lorazepam 1 mg tablet 1 mg PO BID PRN (Reason: anxiety) 30 Days Qty: 60 RF: 0 metoclopramide HCl [Reglan] 10 mg tablet 10 mg PO Q6H PRN (Reason: nausea and vomiting) Qty: 14 RF: 0 ondansetron HCl [Zofran] 4 mg tablet 4 mg PO Q8H PRN (Reason: nausea and vomiting) Qty: 14 RF: 0 diphenhydramine HCl [Benadryl Allergy] 25 mg tablet 50 mg PO TID PRN (Reason: nausea and vomiting) Qty: 10 RF: 0 oxycodone-acetaminophen 5-325 mg tablet 1 tab PO BID-TID PRN (Reason: Pain (Scale Score 7-10)) RF: 0 triamterene-hydrochlorothiazid 37.5-25 mg capsule 1 cap PO DAILY RF: 0 mirtazapine 15 mg tablet 15 mg PO BEDTIME RF: 0 naproxen 375 mg tablet 1 tab PO DAILY RF: 0 prednisone 5 mg tablet 1 tab PO DAILY RF: 0 prednisone 2.5 mg tablet 2.5 mg PO DAILY RF: 0 pantoprazole 40 mg tablet,delayed release (DR/EC) 1 tab PO BID RF: 0 lisinopril 5 mg tablet 1 tab PO DAILY RF: 0 Cosentyx Pen (2 Pens) 150 mg/mL pen injector 2 syringe subcut Q4W RF: 0 metformin 500 mg Tablet 500 mg PO BID RF: 0 fenofibrate 54 mg tablet 54 mg PO DAILY 90 Days Qty: 90 RF: 1 atorvastatin 40 mg tablet 40 mg PO BEDTIME 90 Days Qty: 90 RF: 1 levothyroxine 175 mcg tablet 175 mcg PO DAILY 90 Days Qty: 90 RF: 3 Incruse Ellipta 62.5 mcg/actuation blister with device 1 inh inhalation DAILY 90 Days Qty: 90 RF: 1 Discharge Orders: Discharge Order (Routine); Ordered 10/02/20 Ordered By: Marla Stringer Discharge Date/Time: 10/02/20 06:38
[2020-10-02 07:22] LABS: Methyl Alcohol NONE DETECTED
[2020-10-02 07:24] LABS: Lipase 5302 U/L (8-78)
[2020-10-02 07:40] LABS: Band Neutrophils Percent 4 % (3-5); Metamyelocytes Absolute 0.7 X10*3/uL; Metamyelocytes Percent 2 %; Monocytes Absolute Manual 0.3 X10*3/uL (0.0-1.2); Monocytes Percent Manual 1 % (2-11); Myelocytes Absolute 0.3 X10*/uL; Myelocytes Percent 1 %; Neutrophils Absolute Manual 31.2 X10*3/uL (2.2-7.9); Neutrophils Percent Manual 92 % (45-73); Platelet Estimate NORMAL (NORMAL); Platelet Morphology Comment NOTED; RBC Morphology NOTED; Toxic Vacuolation PRESENT
[2020-10-02 07:41] LABS: Macrocytosis 1+ (5-14) /OIF
[2020-10-02 11:00] LABS: Alanine Aminotransferase 1049 U/L (0-31); Albumin Level 2.5 g/dL (3.5-5.0); Alkaline Phosphatase 122 U/L (39-117); Aspartate Amino Transferase 1420 U/L (5-31); Bilirubin Direct 0.7 mg/dL (0.0-0.5); Total Protein 3.9 g/dL (6.5-8.0)
[2020-10-02 12:20] LABS: Venous Blood Gas Refer to POC result
--- NOTE | 2020-10-03 14:37 | MHC.CDI.RETR ---
Documented by User: Shayy Roach RN 10/03/20 14:40 Retrospective Query Please clarify if you have treated a probable/suspected/likely or confirmed: Shock No Shock Other, please specify Unable to determine PLEASE DO NOT DELETE/MODIFY EXISTING CONTENT Additional information is needed in order to code to the highest accuracy and appropriate Severity of Illness (SOI). Please clarify the information noted below in your progress notes and discharge summary. Risk Factors/Clinical Indicators/Treatments WBC 31.9 Acetaminophen level 3 Per MD progress note, over time, required BP support, IV pressors. Remained hypotensive and more bradycardic CDS: Shayy Roach RN Contact Number: [phone] Please Review the information above and exercise your independent professional judgment in responding to the query. If you concur, pleas document in the PROGRESS NOTES and DISCHARGE SUMMARY. If you do not agree with the query, please document in the query above. THIS QUERY IS PART OF THE PERMANENT MEDICAL RECORD Documented by User: Marla Stringer MD 10/03/20 15:04 Retrospective Query Provider Response: Severe Sepsis
--- NOTE | 2020-10-03 14:42 | MHC.CDI.RETR ---
Documented by User: Shayy Roach RN 10/03/20 14:46 Retrospective Query Please clarify if you have treated a probable/suspected/likely or confirmed: Coma No Coma Other, please specify Unable to Determine PLEASE DO NOT DELETE/MODIFY EXISTING CONTENT Additional information is needed in order to code to the highest accuracy and appropriate Severity of Illness (SOI). Please clarify the information noted below in your progress notes and discharge summary. Risk Factors/Clinical Indicators/Treatments Per ED notes, awake and alert with normal mental status. Per MD progress notes, suddenly found to be of diminished responsiveness, compromised mental status. Both pupils dilated, clenched jaw. CT Head: no acute intracranial pathology CDS: Shayy Roach RN Contact Number: [phone] Please Review the information above and exercise your independent professional judgment in responding to the query. If you concur, pleas document in the PROGRESS NOTES and DISCHARGE SUMMARY. If you do not agree with the query, please document in the query above. THIS QUERY IS PART OF THE PERMANENT MEDICAL RECORD Documented by User: Marla Stringer MD 10/03/20 15:03 Retrospective Query Please clarify if you have treated a probable/suspected/likely or confirmed: Coma-due to acute metabolic encephalopathy No Coma Acute metabolic encephalopathy Other, please specify Unable to Determine Provider Response: Other (Coma)
--- NOTE | 2020-10-03 14:47 | MHC.CDI.RETR ---
Documented by User: Shayy Roach RN 10/03/20 14:51 Retrospective Query Please clarify if you have treated a probable/suspected/likely or confirmed: Type: - Respiratory failure with hypoxia - Respiratory failure with hypercapnia - Respiratory failure with hypoxia and hypercapnia - Other (please specify): - Unable to determine Acuity: - Acute - Chronic - Acute on chronic - Unable to determine PLEASE DO NOT DELETE/MODIFY EXISTING CONTENT Additional information is needed in order to code to the highest accuracy and appropriate Severity of Illness (SOI). Please clarify the information noted below in your progress notes and discharge summary. Risk Factors/Clinical Indicators/Treatments RR 28, SAT 95 % on 2L Per ED Impression: Acute Dehydration, Acute Pancreatitis, Tylenol overdose on 10/01/20, per MD notes, tachypneic and shallow breathing. Intubated CDS: Shayy Roach RN Contact Number: [phone] Please Review the information above and exercise your independent professional judgment in responding to the query. If you concur, pleas document in the PROGRESS NOTES and DISCHARGE SUMMARY. If you do not agree with the query, please document in the query above. THIS QUERY IS PART OF THE PERMANENT MEDICAL RECORD Documented by User: Marla Stringer MD 10/03/20 15:00 Retrospective Query Provider Response: Acute Respiratory Failure
[2020-10-04 17:42] LABS: Immunoglobulin G Subclass 1 238 mg/dL (382-929); Immunoglobulin G Subclass 2 46 mg/dL (241-700); Immunoglobulin G Subclass 3 16 mg/dL (22-178); Immunoglobulin G Subclass 4 1.2 mg/dL (4-86); Immunoglobulin G Total 347 mg/dL (600-1540)
== END 2020-10-02 06:38 | disposition expired | DRG 917 ==
LOC: HO.ED 16:33 → HO.EDOVER 17:34 → HO.ICU 18:26
PROVIDERS: Physician Assistant; Admitting Provider Internal Medicine Cardiovascular Disease; Emergency Provider Emergency Medicine Emergency Medical Services; Visit Provider Internal Medicine Cardiovascular Disease
DX: T39.1X1A Poisoning by 4-Aminophenol derivatives, accidental (unintentional), initial encounter (principal); K85.80 Other acute pancreatitis without necrosis or infection; K72.00 Acute and subacute hepatic failure without coma; R40.20 Unspecified coma; A41.9 Sepsis, unspecified organism; J96.01 Acute respiratory failure with hypoxia; G93.41 Metabolic encephalopathy; R65.21 Severe sepsis with septic shock; N17.9 Acute kidney failure, unspecified; E87.2 Acidosis; T40.2X1A Poisoning by other opioids, accidental (unintentional), initial encounter; Z20.822 Contact with and (suspected) exposure to COVID-19; M35.3 Polymyalgia rheumatica; L40.50 Arthropathic psoriasis, unspecified; J44.9 Chronic obstructive pulmonary disease, unspecified; E03.9 Hypothyroidism, unspecified; E78.2 Mixed hyperlipidemia; E11.9 Type 2 diabetes mellitus without complications; K21.9 Gastro-esophageal reflux disease without esophagitis; E86.0 Dehydration; F17.210 Nicotine dependence, cigarettes, uncomplicated; Z71.6 Tobacco abuse counseling; Y92.9 Unspecified place or not applicable; Z88.5 Allergy status to narcotic agent; Z79.52 Long term (current) use of systemic steroids; Z79.84 Long term (current) use of oral hypoglycemic drugs; Z79.890 Hormone replacement therapy; Z79.899 Other long term (current) drug therapy; Z66 Do not resuscitate
CPT/HCPCS: 36415; 70450; 71045; 71250; 72125; 74176; 80048; 80053; 80076; 80143; 80179; 80307; 80320; 81001; 81003; 82077; 82140; 82310; 82550; 82693; 82784; 82803; 82947; 83605; 83690; 83735; 83930; 84100; 84478; 84484; 85007; 85025; 85027; 85379; 85610; 85730; 87040; 87635; 93005; 94002; 94003; 99285; J0132; J1170; J1200; J1885; J2543; J2765